=== PATIENT | male | born 1960 | race African-American/Black ===

== ENCOUNTER 2024-12-19 11:29 | Inpatient (IN) | payer MEDICARE, SELFPAY ==
[2024-12-19] VITALS (23 sets, daily range): BP systolic 128–149; BP diastolic 64–81; PULSE 38–57; RESP 12–19; TEMP 36.6–36.8; O2SAT 97–100; BMI 26.9
--- NOTE | ~2024-12-19 | XR_ITS ---
EXAMINATION: XR chest 2V, 12/19/2024 12:21 CDT HISTORY: chest pain, HIGH BP COMPARISON: No comparisons available. Technique: 2 views obtained. Findings: The lungs are clear, no effusion. No pneumothorax. Heart is normal size. Mediastinal and hilar contours are within normal limits. Bony thorax no acute abnormality. Impression: No acute cardiopulmonary abnormality. Reviewed, dictated and finalized at location P. Impression: No acute cardiopulmonary abnormality.
--- NOTE | 2024-12-19 11:30 | ECG_ITS ---
Test Date: 2024-12-19 11:35:19 Measurements Intervals [place] Rate: 41 P: 0 IN: 0 QRS: 22 QRSD: 144 T: -31 QT: 434 QTc: 362 Interpretive Statements SINUS RHYTHM CHANGES TO SLOW JUNCTIONAL ESCAPE RHYTHM RIGHT BUNDLE BRANCH BLOCK BASELINE ARTIFACT- I, II, III, AVR, AVL, AVF ABNORMAL ECG No previous ECG available for comparison Electronically Signed On 12-19-2024 15:23:31 CDT by Redd Agustin D.O.
[2024-12-19 11:55] LABS: Hematocrit 40.7 % (42.0-52.0); Hemoglobin 12.7 g/dL (14.0-18.0); Immature Granulocyte Percent A 0.2 % (0-0.5); Lymphocytes Absolute Auto 1.82 K/mm3 (0.9-3.2); Mean Corpuscular HGB Conc 31.2 g/dl (32-36); Mean Corpuscular Hemoglobin 25.9 pg (26-34); Mean Corpuscular Volume 83.1 fl (80-100); Nucleated Red Blood Cells Absolute Auto 0.000 K/mm3 (0.0-0.012); Nucleated Red Blood Cells Perc 0.0 % (0.0-0.2); Platelet Count Result 251 k/mm3 (150-375); Red Blood Count 4.90 M/mm3 (4.6-6.20); White Blood Count 5.0 K/mm3 (4.5-10.0)
[2024-12-19 12:07] LABS: INR 0.9; Prothrombin Time 12.5 Seconds (11.1-14.7)
[2024-12-19 12:08] LABS: Partial Thromboplastin Time 25.6 Seconds (22.3-36.8)
[2024-12-19 12:17] LABS: Alanine Aminotransferase 29 U/L (6-50); Albumin Level 4.5 g/dL (3.5-5.1); Alkaline Phosphatase 92 U/L (38-126); Anion Gap 6 mmol/L (4-12); Aspartate Amino Transferase 34 U/L (17-59); Bilirubin,Total 0.4 mg/dL (0.2-1.3); Blood Urea Nitrogen 13 mg/dL (9-20); Calcium 9.2 mg/dL (8.4-10.2); Carbon Dioxide 31 mmol/L (22-30); Chloride 101 mmol/L (98-107); Estimated CRCL calculation 76 ml/min; Estimated Glomerular Filt Rate > 60; Glucose 177 mg/dL (65-110); Lipase 57 U/L (23-300); Potassium 3.9 mmol/L (3.4-5.0); Sodium 138 mmol/L (137-145); Total Protein 8.2 g/dL (6.3-8.2)
[2024-12-19 12:25] LABS: Troponin I < 0.012 ng/mL (0.000-0.034)
--- NOTE | 2024-12-19 13:51 | ED_ITS ---
HPI - General Adult General Chief complaint: Chest Pain Stated complaint: chest pain Time Seen by Provider: 12/19/24 13:06 History of Present Illness HPI narrative: 64-year-old male present emergency department for evaluation for left-sided chest numbness. Patient denies any chest pain or chest pressure. 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 Patient states this sensation has been constant since yesterday. Patient felt that was a little more intense this morning. Patient denies any prior history of ACS. Patient does have history of a right bundle branch block that was 1st noticed approximately 10 years ago when he had his last stress test when he was having similar symptoms. Related Data Home Medications ?Medication ?Instructions ?Recorded ?Confirmed ?Last Taken ?Type metformin 500 mg tablet 500 mg PO BID 09/15/2412/1912/19/24 09:00 History 500 mg metoprolol succinate 100 mg 100 mg PO DAILY 09/15/2412/19/24 09:00 History tablet,extended release 24 hr 100 mg olmesartan 20 mg-amlodipine 5 1 tablet PO DAILY 12/19/24 12/19/24 09:00 History mg-hydrochlorothiazide 12.5 mg 1 tabl et tablet rosuvastatin 10 mg tablet 10 mg PO DAILY 09/15/2412/0312/19/24 09:00 History 10 mg valacyclovir 1 gram tablet 1,000 mg PO PRN PRN outbrea k 09/15/24 12/19/24 Unknown History Allergies Allergy/AdvReac Type Severity Reaction Status Date / Time No Known Allergies Allergy Unknown Verified 12/19/24 17:17 Review of Systems 2 Review of Systems: All systems reviewed & are unremarkable except as noted in HPI and below [facility] Past Medical History Medical History (Updated 12/19/24 @ 18:17 by Thomas Ladd MD) Hyperlipidemia Diabetes Family History Family History Mother Family history of malignant neoplasm Father Family history of malignant neoplasm Social History Social History Smoking status: Never smoker Alcohol intake: never Substance use: never Lack of Transportation: No Lack of Food: Never True Current Housing: I Have Housing Concerned About Future Housing: No Difficulty Paying Gas/Electric Bills: No Difficulty Paying for Meds: No Currently Unemployed: No Education: Decline to Answer Difficulty w/ Childcare or Family Care: No Spiritual care concerns: No Exam 2 Narrative: APPEARANCE: Well appearing, no pain, no distress, well-nourished. HEAD: normocephalic, atraumatic. EYES: PERRLA/EOMI, conjunctivae clear. NOSE: Normal no drainage EARS:TMS clear with good light reflex. THROAT: Pharynx clear, no exudate. NECK: Supple. No adenopathy, no masses. RESPIRATORY: Airway patent, respirations nonlabored. Clear to auscultation bilaterally, no rales, rhonchi, wheezing. CARDIOVASCULAR: Bradycardia ABDOMINAL: Soft, nontender, nondistended, normal bowel sounds MUSCULOSKELETAL: Reproducible left-sided chest wall tenderness to palpation NEURO: Alert. Cranial nerves II through XII intact. Good gait. Good coordination SKIN: Warm, dry. Normal Color Course Vital Signs Vital signs: Vital Signs Temperature 98 F 12/19/24 11:40 Pulse Rate 45 L 12/19/24 11:40 Respiratory Rate 17 12/19/24 11:40 Blood Pressure 149/75 H 12/19/24 11:40 Pulse Oximetry 99 12/19/24 11:40 Oxygen Delivery Room Air 12/19/24 11:40 Temperature 98 F 12/19/24 11:40 Pulse Rate 38 L 12/19/24 16:15 Respiratory Rate 14 12/19/24 16:15 Blood Pressure 140/80 12/19/24 15:47 Pulse Oximetry 97 12/19/24 17:36 Oxygen Delivery Room Air 12/19/24 17:36 Medical Decision Making [facility] Narrative Medical decision making narrative: 64-year-old male presents emergency department for evaluation for some left- sided chest numbness. Patient does have reproducible left-sided chest tenderness to palpation. Patient's troponins were negative. Patient is currently afebrile with no leukocytosis and hemoglobin of 12.7. D-dimer was high end of normal at 0.39. INR is 0.9. Patient is on metoprolol for his hypertension. This may be causing the significant bradycardia. Cardiology was consulted. Patient was admitted to IMU. All questions concerns were addressed. Patient was well-appearing at time of admission. Differential Diagnosis Differential Diagnosis: AFib with slow ventricular response, bradycardia, dehydration, hypomagnesemia, ACS, pneumonia, pneumothorax Vital Signs Vital Signs: Vital Signs Temperature 98 F 12/19/24 11:40 Pulse Rate 45 L 12/19/24 11:40 Respiratory Rate 17 12/19/24 11:40 Blood Pressure 149/75 H 12/19/24 11:40 Pulse Oximetry 99 12/19/24 11:40 Oxygen Delivery Room Air 12/19/24 11:40 Temperature 98 F 12/19/24 11:40 Pulse Rate 38 L 12/19/24 16:15 Respiratory Rate 14 12/19/24 16:15 Blood Pressure 140/80 12/19/24 15:47 Pulse Oximetry 97 12/19/24 17:36 Oxygen Delivery Room Air 12/19/24 17:36 Lab Data Lab results reviewed: Yes I reviewed the patient's lab results. 12/19/24 11:46 12/19/24 11:46 Labs: Lab Results 12/19/24 12/19/24 Range/Units 11:46 14:24 WBC 5.0 (4.5-10.0) K/mm3 RBC 4.90 (4.6-6.20) M/mm3 Hgb 12.7 L (14.0-18.0) g/dL Hct 40.7 L (42.0-52.0) % MCV 83.1 (80-100) fl MCH 25.9 L (26-34) pg MCHC 31.2 L (32-36) g/dl RDW 14.6 H (11.5-14.5) % Plt Count 251 (150-375) k/mm3 MPV 10.5 H (7.4-10.4) fl Immature Gran % (Auto) 0.2 (0-0.5) % Neut % (Auto) 47.1 (45.5-73.1) % Lymph % (Auto) 36.3 (18.3-44.2) % Kay % (Auto) 7.2 (2.6-8.5) % Eos % (Auto) 8.4 H (0-4.4) % Baso % (Auto) 0.8 (0.2-1.2) % Lymph # (Auto) 1.82 (0.9-3.2) K/mm3 Kay # (Auto) 0.4 (0.1-0.6) K/mm3 Eos # (Auto) 0.4 H (0-0.3) K/mm3 Baso # (Auto) 0.0 (0.0-0.1) K/mm3 Abs Immat Gran (auto) 0.01 (0.00-0.031) K/mm3 Absolute Neuts (auto) 2.4 (1.3-6.7) K/mm3 Absolute Nucleated RBC 0.000 (0.0-0.012) K/mm3 Nucleated RBC % 0.0 (0.0-0.2) % PT 12.5 (11.1-14.7) Seconds INR 0.9 APTT 25.6 (22.3-36.8) Seconds D-Dimer 0.39 (<0.48) ug/mL Sodium 138 (137-145) mmol/L Potassium 3.9 (3.4-5.0) mmol/L Chloride 101 (98-107) mmol/L Carbon Dioxide 31 H (22-30) mmol/L Anion Gap 6 (4-12) mmol/L BUN 13 (9-20) mg/dL Creatinine 0.93 (0.7-1.3) mg/dL Estim Creat Clear Calc 76 ml/min Estimated GFR > 60 (59 - ) Glucose 177 H (65-110) mg/dL Calcium 9.2 (8.4-10.2) mg/dL Total Bilirubin 0.4 (0.2-1.3) mg/dL AST 34 (17-59) U/L ALT 29 (6-50) U/L Alkaline Phosphatase 92 (38-126) U/L Troponin I < 0.012 < 0.012 (0.000-0.034) ng/mL Total Protein 8.2 (6.3-8.2) g/dL Albumin 4.5 (3.5-5.1) g/dL Lipase 57 (23-300) U/L Discharge Plan Discharge Clinical Impression: Bradycardia, Chest discomfort Patient Disposition: Still a Patient Condition: Serious
--- OUTSIDE RECORDS SUMMARY | 2024-12-19 13:52 | XMS_ITS | Encounter Summary ---
Author Organization [facility] Address 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 [place] [address] PCP - General 12/19/06 documented as of this encounter
--- OUTSIDE RECORDS SUMMARY | 2024-12-19 13:52 | XMS_ITS | Encounter Summary ---
Author Organization [facility] Address [address] [place] [address] Care Team Providers Care Change Control Analyst Name Role Phone Joseph June MD Primary Care Provider [phone] Encounter Details Date Type Department Care Team (Late st Contact Info) Description 05/13/2003 Outpatient Historical [facility] Care [facility] [address] [address] Jason Muhammad, DO * Social History Tobacco Use Types Packs/Day Years Used Date Smoking Tobacco: Never Assessed Sex and Gender Information Value Date Recorded Sex Assigned at Not on file Legal Sex Male 4:31 AM OUTREACH COUNSELOR Gender Identity Not on file Sexual Orientation Not on file documented as of this encounter Plan of Treatment Upcoming Encounters Date Type Department Care Team (Late st Contact Info) Description 04/03/2025 9:15 AM OUTREACH COUNSELOR Office Visit [facility] [address] [address] Joseph June MD [address] [place] [address] documented as of this encounter Visit Diagnoses Not on filedocumented in this encounter Care Teams Change Control Analyst Relationship Specialty Start Date End Date Joseph June MD [address] [place] [address] PCP - General 12/19/06 documented as of this encounter
--- OUTSIDE RECORDS SUMMARY | 2024-12-19 13:52 | XMS_ITS | Encounter Summary ---
Author Organization [facility] Address 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 [place] [address] PCP - General 12/19/06 documented as of this encounter
--- OUTSIDE RECORDS SUMMARY | 2024-12-19 13:52 | XMS_ITS | Encounter Summary ---
Author Organization [facility] Address [address] [place] [address] Care Team Providers Care Racecar Driver Name Role Phone Joseph June MD Primary Care Provider [phone] Encounter Details Date Type Department Care Team (Late st Contact Info) Description 04/29/2001 Outpatient Historical [facility] Care [facility] [address] [address] Jason Muhammad, DO * Social History Tobacco Use Types Packs/Day Years Used Date Smoking Tobacco: Never Assessed Sex and Gender Information Value Date Recorded Sex Assigned at Not on file Legal Sex Male 4:31 AM LOT BOSS Gender Identity Not on file Sexual Orientation Not on file documented as of this encounter Plan of Treatment Upcoming Encounters Date Type Department Care Team (Late st Contact Info) Description 04/03/2025 9:15 AM LOT BOSS Office Visit [facility] [address] [address] Joseph June MD [address] [place] [address] documented as of this encounter Visit Diagnoses Not on filedocumented in this encounter Care Teams Racecar Driver Relationship Specialty Start Date End Date Joseph June MD [address] [place] [address] PCP - General 12/19/06 documented as of this encounter
--- OUTSIDE RECORDS SUMMARY | 2024-12-19 13:52 | XMS_ITS | Encounter Summary ---
Author Organization [facility] Address [address] [place] [address] Care Team Providers Care Senior Analyst Market Intelligence Name Role Phone Joseph June MD Primary Care Provider [phone] Encounter Details Date Type Department Care Team (Late st Contact Info) Description 09/30/1997 Outpatient Historical [facility] Care [facility] [address] [address] Jason Muhammad, DO * Social History Tobacco Use Types Packs/Day Years Used Date Smoking Tobacco: Never Assessed Sex and Gender Information Value Date Recorded Sex Assigned at Not on file Legal Sex Male 4:31 AM SHIP HARBOR PILOT Gender Identity Not on file Sexual Orientation Not on file documented as of this encounter Plan of Treatment Upcoming Encounters Date Type Department Care Team (Late st Contact Info) Description 04/03/2025 9:15 AM SHIP HARBOR PILOT Office Visit [facility] [address] [address] Joseph June MD [address] [place] [address] documented as of this encounter Visit Diagnoses Not on filedocumented in this encounter Care Teams Senior Analyst Market Intelligence Relationship Specialty Start Date End Date Joseph June MD [address] [place] [address] PCP - General 12/19/06 documented as of this encounter
--- OUTSIDE RECORDS SUMMARY | 2024-12-19 13:52 | XMS_ITS | Encounter Summary ---
Author Organization [facility] Address [address] [place] [address] Care Team Providers Care Pharmacology Professor Name Role Phone Joseph June MD Primary Care Provider [phone] Encounter Details Date Type Department Care Team (Late st Contact Info) Description 08/20/2001 Outpatient Historical [facility] [address] [address] Jason Muhammad, DO * Social History Tobacco Use Types Packs/Day Years Used Date Smoking Tobacco: Never Assessed Sex and Gender Information Value Date Recorded Sex Assigned at Not on file Legal Sex Male 4:31 AM CONCRETE MIXER OPERATOR HELPER Gender Identity Not on file Sexual Orientation Not on file documented as of this encounter Plan of Treatment Upcoming Encounters Date Type Department Care Team (Late st Contact Info) Description 04/03/2025 9:15 AM CONCRETE MIXER OPERATOR HELPER Office Visit [facility] [address] [phone] Joseph June MD [address] [place] [address] documented as of this encounter Visit Diagnoses Not on filedocumented in this encounter Care Teams Pharmacology Professor Relationship Specialty Start Date End Date Joseph June MD [address] [place] [address] PCP - General 12/19/06 documented as of this encounter
--- OUTSIDE RECORDS SUMMARY | 2024-12-19 13:52 | XMS_ITS | Encounter Summary ---
Author Organization [facility] Address [address] [place] [address] Care Team Providers Care Industrial Technology Teacher Name Role Phone Joseph June MD Primary Care Provider [phone] Encounter Details Date Type Department Care Team (Late st Contact Info) Description 08/06/2001 Outpatient Historical [facility] Care [facility] [address] [address] Jason Muhammad, DO * Social History Tobacco Use Types Packs/Day Years Used Date Smoking Tobacco: Never Assessed Sex and Gender Information Value Date Recorded Sex Assigned at Not on file Legal Sex Male 4:31 AM SERVICE PERSON Gender Identity Not on file Sexual Orientation Not on file documented as of this encounter Plan of Treatment Upcoming Encounters Date Type Department Care Team (Late st Contact Info) Description 04/03/2025 9:15 AM SERVICE PERSON Office Visit [facility] [address] [phone] Joseph June MD [address] [place] [address] documented as of this encounter Visit Diagnoses Not on filedocumented in this encounter Care Teams Industrial Technology Teacher Relationship Specialty Start Date End Date Joseph June MD [address] [place] [address] PCP - General 12/19/06 documented as of this encounter
--- OUTSIDE RECORDS SUMMARY | 2024-12-19 13:52 | XMS_ITS | Encounter Summary ---
Author Organization [facility] Address [address] [place] [address] Care Team Providers Care Personal Computer Network Engineer Name Role Phone Joseph June MD Primary Care Provider [phone] Reason for Visit * Reason Comments Medication Refill Encounter Details Date Type Department Care Team (Late Contact Info) Description 02/12/2015 Refill [facility] [place] [address] Joseph June MD [facility] [address] [place] [address] Social History Tobacco Use Types Packs/Day Years Used Date Smoking Tobacco: Never Smokeless Tobacco: Never Alcohol Use Standard Drinks/Week Comments No 0 (1 standard drink = 0.6 oz pur e alcohol) Sex and Gender Information Value Date Recorded Sex Assigned at Not on file Legal Sex Male 4:31 AM MILL MACHINIST Gender Identity Not on file Sexual Orientation Not on file Occupation Industry Job Start Date Job End Date Not on file Not on file Not on file Not on file documented as of this encounter Plan of Treatment Upcoming Encounters Date Type Department Care Team (Late Contact Info) Description 04/03/2025 9:15 AM MILL MACHINIST Office Visit [facility] [address] [address] Joseph June MD [address] [place] [address] documented as of this encounter Visit Diagnoses Not on filedocumented in this encounter Care Teams Personal Computer Network Engineer Relationship Specialty Start Date End Date Joseph June MD [address] [facility] [address] [place] [phone] PCP - General 12/19/06 documented as of this encounter
--- OUTSIDE RECORDS SUMMARY | 2024-12-19 13:52 | XMS_ITS | Encounter Summary ---
Author Organization [facility] Address [address] [place] [address] Care Team Providers Care Paper Cone Machine Tender Name Role Phone Joseph June MD Primary Care Provider [phone] Encounter Details Date Type Department Care Team (Late st Contact Info) Description 05/13/2001 Outpatient Historical [facility] Care [facility] [address] [address] Jason Muhammad, DO * Social History Tobacco Use Types Packs/Day Years Used Date Smoking Tobacco: Never Assessed Sex and Gender Information Value Date Recorded Sex Assigned at Not on file Legal Sex Male 4:31 AM RELIABILITY TECHNICIAN Gender Identity Not on file Sexual Orientation Not on file documented as of this encounter Plan of Treatment Upcoming Encounters Date Type Department Care Team (Late st Contact Info) Description 04/03/2025 9:15 AM RELIABILITY TECHNICIAN Office Visit [facility] [address] [phone] Joseph June MD [address] [place] [address] documented as of this encounter Visit Diagnoses Not on filedocumented in this encounter Care Teams Paper Cone Machine Tender Relationship Specialty Start Date End Date Joseph June MD [address] [place] [address] PCP - General 12/19/06 documented as of this encounter
--- OUTSIDE RECORDS SUMMARY | 2024-12-19 13:52 | XMS_ITS | Clinical Summary ---
Author Organization [facility] Address [address] [place] [address] Care Team Providers Care Pan Devulcanizer Helper Name Role Phone Joseph June MD Primary Care Provider [phone] Source Comments [facility],non-owned Affiliates and Associated Physician Practices is amultiple site organization consisting of ambulatory clinics and hospital sitesin [place], [place], [place] and [place]. This disclosure is being madepursuant to the Care Everywhere program and may not contain all information available regarding this patient. Last updated 17.[facility] Allergies No known active allergies Medications * Be aware that medications may not be up to date on this document. Alwaysverify current medications with the patient. LOSARTAN POTASSIUM PO Active LISINOPRIL PO Active Social History Tobacco Use Types Packs/Day Years Used Date Smoking Tobacco: Never Sex and Gender Information Value Date Recorded Sex Assigned at Not on file Legal Sex Male 6:02 AM IT TECHNICAL SUPPORT SPECIALIST Gender Identity Not on file Sexual Orientation Not on file Last Filed Vital Signs Vital Sign Reading Time Taken Comments Blood Pressure 142/88 03/28/2016 3:02 PM IT TECHNICAL SUPPORT SPECIALIST Pulse 86 03/28/2016 2:42 PM IT TECHNICAL SUPPORT SPECIALIST Temperature 39.4 C (102.9 F) 03/28/2016 2:42 PM IT TECHNICAL SUPPORT SPECIALIST Respiratory Rate 16 03/28/2016 2:42 PM IT TECHNICAL SUPPORT SPECIALIST Oxygen Saturation 94% 03/28/2016 2:42 PM IT TECHNICAL SUPPORT SPECIALIST Inhaled Oxygen Concentration - - Weight 97.5 kg (215 lb) 03/28/2016 2:42 PM IT TECHNICAL SUPPORT SPECIALIST Height 182.9 cm (6') 03/28/2016 2:42 PM IT TECHNICAL SUPPORT SPECIALIST Body Mass Index 29.16 03/28/2016 2:42 PM IT TECHNICAL SUPPORT SPECIALIST Plan of Treatment Health Maintenance Due Date Last Done Comments COLOGUARD (AGES 45-75) - COL ON CA SCREENING 1959 COLON MONITORING 1959 COLONOSCOPY - COLON CA SCREENING 1959 CT COLONOGRAPHY - COLON CA SCREENING 1959 Colorectal Cancer Screening 1959 FIT - COLON CA SCREENING 1959 FLEX SIG - COLON CA SCREENING 1959 LIPID TESTING 1959 HIV SCREENING 1974 HEPATITIS C SCREENING 01/20/1977 DTAP/TDAP/TD VACCINES (1 - Tdap) 1978 PNEUMOCOCCAL VACCINE 50+ (1 of 1 - PCV) 2009 ZOSTER VACCINE (1 of 2) 2009 DEPRESSION SCREENING 03/05/2024 COVID-19 VACCINE (1 - 2023-2 5 season) 2024 INFLUENZA VACCINE (#1) 2024 Respiratory Syncytial Virus (RSV) Vaccine Pt: or over 60 yrs (1 - 1-dose 75+ series) 2034 HEPATITIS B VACCINE Aged Out No longe r eligible based on patient's age to complete this topic HIB VACCINE Aged Out No longer eligi ble based on patient's age to complete this topic HPV VACCINE Aged Out No longer eligi ble based on patient's age to complete this topic MENINGOCOCCAL (Group B) VACC INE SHARED DECISION-MAKING Aged Out No longer eligibl e based on patient's age to complete this topic MENINGOCOCCAL GROUPS A/C/Y/W VACCINE Aged Out No longer eligible b ased on patient's age to complete this topic Insurance [employer] [facility] Care Teams Pan Devulcanizer Helper Relationship Specialty Start Date End Date Joseph June MD [address] [place] [address] PCP - General Family Medicine 03/28/16
--- OUTSIDE RECORDS SUMMARY | 2024-12-19 13:52 | XMS_ITS | Encounter Summary ---
Author Organization [facility] Address [address] [place] [address] Care Team Providers Care Jointer Submarine Cable Name Role Phone Joseph June MD Primary Care Provider [phone] Encounter Details Date Type Department Care Team (Late st Contact Info) Description 04/15/2001 Outpatient Historical [facility] Care [facility] [address] [address] Jason Muhammad, DO * Social History Tobacco Use Types Packs/Day Years Used Date Smoking Tobacco: Never Assessed Sex and Gender Information Value Date Recorded Sex Assigned at Not on file Legal Sex Male 4:31 AM EXPLOSIVE OPERATOR SUPERVISOR Gender Identity Not on file Sexual Orientation Not on file documented as of this encounter Plan of Treatment Upcoming Encounters Date Type Department Care Team (Late st Contact Info) Description 04/03/2025 9:15 AM EXPLOSIVE OPERATOR SUPERVISOR Office Visit [facility] [address] [phone] Jospeh June MD [address] [place] [address] documented as of this encounter Visit Diagnoses Not on filedocumented in this encounter Care Teams Jointer Submarine Cable Relationship Specialty Start Date End Date Joseph June MD [address] [place] [address] PCP - General 12/19/06 documented as of this encounter
--- OUTSIDE RECORDS SUMMARY | 2024-12-19 13:53 | XMS_ITS | Encounter Summary ---
Author Organization [facility] Address [address] [place] [address] Care Team Providers Care Prototype Engineer Manager Name Role Phone Joseph June MD Primary Care Provider [phone] Encounter Details Date Type Department Care Team (Late st Contact Info) Description 11/13/2001 Outpatient Historical [facility] Care [facility] [address] [address] Jason Muhammad, DO * Social History Tobacco Use Types Packs/Day Years Used Date Smoking Tobacco: Never Assessed Sex and Gender Information Value Date Recorded Sex Assigned at Not on file Legal Sex Male 4:31 AM FARM SERVICE ADVISER Gender Identity Not on file Sexual Orientation Not on file documented as of this encounter Plan of Treatment Upcoming Encounters Date Type Department Care Team (Late st Contact Info) Description 04/03/2025 9:15 AM FARM SERVICE ADVISER Office Visit [facility] [address] [address] Joseph June MD [address] [place] [address] documented as of this encounter Visit Diagnoses Not on filedocumented in this encounter Care Teams Prototype Engineer Manager Relationship Specialty Start Date End Date Joseph June MD [address] [place] [address] PCP - General 12/19/06 documented as of this encounter
--- OUTSIDE RECORDS SUMMARY | 2024-12-19 13:53 | XMS_ITS | Encounter Summary ---
Author Organization [facility] Address [address] [place] [address] Care Team Providers Care Fleet Mechanic Name Role Phone Joseph June MD Primary Care Provider [phone] Encounter Details Date Type Department Care Team (Late st Contact Info) Description 12/19/2006 Outpatient Historical [facility] Joseph June MD [address] [place] [phone] Unspecified Anemia (Primary Dx) Social History Tobacco Use Types Packs/Day Years Used Date Smoking Tobacco: Never Assessed Sex and Gender Information Value Date Recorded Sex Assigned at Not on file Legal Sex Male 4:31 AM ASSISTANT Gender Identity Not on file Sexual Orientation Not on file documented as of this encounter Plan of Treatment Upcoming Encounters Date Type Department Care Team (Late Contact Info) Description 04/03/2025 9:15 AM ASSISTANT Office Visit [facility] Primary [facility] - [place] [address] [place] [phone] Joseph June MD [address] [place], [place] [address] [place] [phone] documented as of this encounter Procedures Procedure Name Priority Date/Time Associated Diagnosis Comments CBC WITH DIFFERENTIAL Routine 12/19/2006 12:27 PM CDT CBC WITH DIFFERENTIAL Routine 12/19/2006 12:27 PM CDT PSA Routine 12/19/2006 12:27 PM CDT HEPATIC FUNCTION PANEL Routine 12/19/2006 12:27 PM CDT LIPID PANEL Routine 12/19/2006 12:27 PM CDT BASIC METABOLIC PANEL Routine 12/19/2006 12:27 PM CDT documented in this encounter Results * CBC WITH DIFFERENTIAL (12/19/2006 12:27 PM CDT) NEUTROPHILS 53 45 - 70 % INTERFAC E SYSTEM LYMPHOCYTES 35 16 - 45 % INTERFAC E SYSTEM MONOCYTES 6 3 - 13 % INTERFACE SYSTEM EOSINOPHILS 7 0 - 7 % INTERFAC E SYSTEM BASOPHILS 1 0 - 2 % INTERFACE SYSTEM NEUTROPHIL ABSOLUTE 3.09 1.90 - 7.00 K/uL INTERFACE SYSTEM LYMPHOCYTE ABSOLUTE 2.04 0.70 - 4.50 K/uL INTERFACE SYSTEM MONOCYTE ABSOLUTE 0.34 0.10 - 1.30 K/uL INTERFACE SYSTEM EOSINOPHIL ABSOLUTE 0.39 0.00 - 0.70 K/uL INTERFACE SYSTEM BASOPHILS ABSOLUTE 0.03 0.00 - 0.20 K/uL INTERFACE SYSTEM 12/19/2006 12:2 7 PM CDT us Joseph June MD HEMATOLOGY ORDERABLES Edited INTERFACE SYSTEM Refer to clinic/hospital department * (ABNORMAL) CBC WITH DIFFERENTIAL (12/19/2006 12:27 PM CDT) WBC 5.9 4.0 - 9.8 K/uL INTERFACE SYSTEM RBC 4.77 4.50 - 5.40 M/uL INTERFACE SYSTEM HEMOGLOBIN 12.0(L) 13.6 - 16.5 g/dL INTERFACE SYSTEM HEMATOCRIT 37.0(L) 40.0 - 48.0 % INTERFACE SYSTEM MCV 77.6(L) 82.0 - 99.0 fL INTERFACE SYSTEM MCH 25.2(L) 27.2 - 32.6 pg INTERFACE SYSTEM MCHC 32.4 31.5 - 35.5 % INTERFACE SYSTEM RDW 14.6(H) 11.5 - 14.5 % INTERFACE SYSTEM RDW-STDEV 41.1 37.1 - 48.7 fL INTERFACE SYSTEM PLATELETS 289 140 - 350 K/uL INTERFACE SYSTEM MPV 10.4 9.3 - 12.4 fL INTERFACE SYSTEM 12/19/2006 12:2 7 PM CDT Joseph June MD HEMATOLOGY ORDERABLES Edited INTERFACE SYSTEM Refer to clinic/hospital department * PSA (12/19/2006 12:27 PM CDT) PSA 0.8 0.0 - 4.0 ng/mL INTERFACE SYSTEM Comment:Performed on [employer] E170 System 12/19/2006 12:2 7 PM CDT Joseph June MD CHEMISTRY ORDERABLES Edited INTERFACE SYSTEM Refer to clinic/hospital department * HEPATIC FUNCTION PANEL (12/19/2006 12:27 PM CDT) ALKALINE PHOSPHATASE 77 40 - 129 U/L INTERFACE SYSTEM AST 31 12 - 38 U/L INTERFACE SYSTEM ALT 41 0 - 41 U/L INTERFACE SYSTEM TOTAL PROTEIN 7.9 6.3 - 8.6 g/dL INTERFACE SYSTEM ALBUMIN 4.4 3.4 - 4.8 g/dL INTERFACE SYSTEM BILIRUBIN TOTAL 0.3 0.2 - 1.0 mg/dL INTERFACE SYSTEM BILIRUBIN DIRECT 0.1 0.0 - 0.3 mg/dL INTERFACE SYSTEM 12/19/2006 12:2 7 PM CDT Joseph June MD CHEMISTRY ORDERABLES Edited INTERFACE SYSTEM Refer to clinic/hospital department * LIPID PANEL (12/19/2006 12:27 PM CDT) CHOLESTEROL 172 100 - 199 mg/dL INTERFACE SYSTEM TRIGLYCERIDE 93 10 - 149 mg/dL INTERFACE SYSTEM HDL 59 40 - 59 mg/dL INTERFACE SYSTEM CHOL/HDL RATIO 2.9 2.0 - 5.0 INTER FACE SYSTEM LDL CALCULATED 94 <=99 mg/dL INTERFACE SYSTEM LIPID PANEL COMMENT See Below INTERFACE SYSTEM Comment: The adult ATP and pediatric NCEP classifications for lipids are available on the [facility] Intranet at: [email or web address] Select: Lab Policies and Procedures,Current Select: Lipid Panel Interpretation 12/19/2006 12:2 7 PM CDT Joseph June MD CHEMISTRY ORDERABLES Edited Performing Organization Address City/[facility]/ZIP Co de Phone Number INTERFACE SYSTEM Refer to clinic/hospital department * BASIC METABOLIC PANEL (12/19/2006 12:27 PM CDT) GLUCOSE 99 65 - 99 mg/dL INTERFACE SYSTEM CREATININE 1.02 0.67 - 1.17 mg/dL INTERFACE SYSTEM CALCIUM 9.5 8.4 - 10.2 mg/dL INTERFACE SYSTEM BUN 14 6 - 20 mg/dL INTERFACE SYSTEM SODIUM 140 135 - 145 mmol/L INTERFACE SYSTEM POTASSIUM 3.8 3.5 - 4.9 mmol/L INTERFACE SYSTEM CHLORIDE 101 96 - 108 mmol/L INTERFACE SYSTEM CO2 29 22 - 30 mmol/L INTERFACE SYSTEM GFR, >60 >=60 mL/min/1.7 sq meter INTERFACE SYSTEM GFR >60 >=60 mL/min/1.7 sq meter INTERFACE SYSTEM Comment: Estimated GFR rate interpretative information for both Americans and non- Americans is available on the [facility] Intranet at: [email or web address] Select: Lab Policies and Procedures Select: Reference Ranges - GFR 12/19/2006 12:2 7 PM CDT Joseph June MD CHEMISTRY ORDERABLES Edited INTERFACE SYSTEM Refer to clinic/hospital department documented in this encounter Visit Diagnoses Diagnosis Anemia, unspecified- Primary documented in this encounter Care Teams Fleet Mechanic Relationship Specialty Start Date End Date Joseph June MD [address] [place] [phone] PCP - General 12/19/06 documented as of this encounter
--- OUTSIDE RECORDS SUMMARY | 2024-12-19 13:53 | XMS_ITS | Encounter Summary ---
Author Organization [facility] Address [address] [place] [address] Care Team Providers Care Microfilm Camera Operator Name Role Phone Josehp June MD Primary Care Provider [phone] Encounter Details Date Type Department Care Team (Late st Contact Info) Description 09/04/2002 Outpatient Historical [facility] Care [facility] [address] [address] Jason Muhammad, DO * Social History Tobacco Use Types Packs/Day Years Used Date Smoking Tobacco: Never Assessed Sex and Gender Information Value Date Recorded Sex Assigned at Not on file Legal Sex Male 4:31 AM PANEL ASSEMBLER Gender Identity Not on file Sexual Orientation Not on file documented as of this encounter Plan of Treatment Upcoming Encounters Date Type Department Care Team (Late st Contact Info) Description 04/03/2025 9:15 AM PANEL ASSEMBLER Office Visit [facility] [address] [address] Joseph June MD [address] [place] [address] documented as of this encounter Visit Diagnoses Not on filedocumented in this encounter Care Teams Microfilm Camera Operator Relationship Specialty Start Date End Date Joseph June MD [address] [place] [address] PCP - General 12/19/06 documented as of this encounter
--- OUTSIDE RECORDS SUMMARY | 2024-12-19 13:53 | XMS_ITS | Encounter Summary ---
Author Organization [facility] Address [address] [place] [address] Care Team Providers Care Sewing Machine Assembler Name Role Phone Joseph June MD Primary Care Provider [phone] Encounter Details Date Type Department Care Team (Late st Contact Info) Description 12/19/2006 Outpatient Historical [facility] Care [facility] [address] [place] [phone] Kia Woo MD NO ADDRESS ON FILE Social History Tobacco Use Types Packs/Day Years Used Date Smoking Tobacco: Never Assessed Sex and Gender Information Value Date Recorded Sex Assigned at Not on file Legal Sex Male 4:31 AM SKILLED NURSING FACILITIES PROFESSIONAL Gender Identity Not on file Sexual Orientation Not on file documented as of this encounter Plan of Treatment Upcoming Encounters Date Type Department Care Team (Late st Contact Info) Description 04/03/2025 9:15 AM SKILLED NURSING FACILITIES PROFESSIONAL Office Visit [facility] [address] [place] [address] Joseph June MD [address] [place] [address] documented as of this encounter Visit Diagnoses Not on filedocumented in this encounter Care Teams Sewing Machine Assembler Relationship Specialty Start Date End Date Joseph June MD [address] [place] [address] PCP - General 12/19/06 documented as of this encounter
--- OUTSIDE RECORDS SUMMARY | 2024-12-19 13:53 | XMS_ITS | Encounter Summary ---
Author Organization [facility] Address [address] [place] [address] Care Team Providers Care Industrial Engineering Name Role Phone Joseph June MD Primary Care Provider [phone] Encounter Details Date Type Department Care Team (Late st Contact Info) Description 06/17/2004 Outpatient Historical [facility] Care [facility] [address] [address] Jason Muhammad, DO * Social History Tobacco Use Types Packs/Day Years Used Date Smoking Tobacco: Never Assessed Sex and Gender Information Value Date Recorded Sex Assigned at Not on file Legal Sex Male 4:31 AM SELF PAY COLLECTOR Gender Identity Not on file Sexual Orientation Not on file documented as of this encounter Plan of Treatment Upcoming Encounters Date Type Department Care Team (Late st Contact Info) Description 04/03/2025 9:15 AM SELF PAY COLLECTOR Office Visit [facility] [address] [address] Joseph June MD [address] [place] [address] documented as of this encounter Visit Diagnoses Not on filedocumented in this encounter Care Teams Industrial Engineering Relationship Specialty Start Date End Date Joseph June MD [address] [place] [address] PCP - General 12/19/06 documented as of this encounter
--- OUTSIDE RECORDS SUMMARY | 2024-12-19 13:53 | XMS_ITS | Encounter Summary ---
Author Organization [facility] Address [address] [place] [address] Care Team Providers Care Email Deployment Specialist Name Role Phone Joseph June MD Primary Care Provider [phone] Encounter Details Date Type Department Care Team (Late st Contact Info) Description 11/25/[address] [facility] Care [facility] [address] [address] Jason Muhammad, DO * Social History Tobacco Use Types Packs/Day Years Used Date Smoking Tobacco: Never Assessed Sex and Gender Information Value Date Recorded Sex Assigned at Not on file Legal Sex Male 4:31 AM ASSOCIATE FINANCIAL ADVISOR Gender Identity Not on file Sexual Orientation Not on file documented as of this encounter Plan of Treatment Upcoming Encounters Date Type Department Care Team (Late st Contact Info) Description 04/03/2025 9:15 AM ASSOCIATE FINANCIAL ADVISOR Office Visit [facility] [address] [address] Joseph June MD [address] [place] [address] documented as of this encounter Visit Diagnoses Not on filedocumented in this encounter Care Teams Email Deployment Specialist Relationship Specialty Start Date End Date Joseph June MD [address] [place] [address] PCP - General 12/19/06 documented as of this encounter
--- OUTSIDE RECORDS SUMMARY | 2024-12-19 13:53 | XMS_ITS | Clinical Summary ---
Author Organization [facility] Address [address] [place] [address] Care Team Providers Care Edge Drummer Name Role Phone Joseph June MD Primary Care Provider [phone] Allergies No known active allergies Medications olmesartan-amLO DIPin-hcthiazid 20-5-12.5 mg tabletIndicatio ns:hypertension Take by mouth every morning Active rosuvastatin (CRESTOR) 10 mg tabletIndicatio ns:hyperlipidem ia Take 10 mg by mouth daily before breakfast Active metoprolol XL (TOPROL-XL) 100 mg 24 hr tabletIndicatio ns:hypertension Take 100 mg by mouth every morning Active levoFLOXacin (LEVAQUIN) 500 mg tabletIndicatio ns:Other (complete free text reason below) Take 1 tablet by mouth at 6 AM morning of surgery and take 1 tablet by mouth day of catheter removal 2 tablet 0 Active ASCORBIC ACID, VITAMIN C, ORAL Take by mouth every morning Active potassium chloride ER (KLOR-CON) 20 mEq CR tablet as needed 9 Active valACYclovir (VALTREX) 1 gram tablet TAKE 1 TABLET DAILY (NEED TO SCHEDULE APPOINTMENT). 7 Active iron 18 mg tablet Take by mouth every morning Active ibuprofen (ADVIL,MOTRIN) 200 mg tab/cap Take by mouth every 6 (six) hours as needed for pain Active naproxen (ALEVE) 220 mg tablet Take by mouth 2 (two) times a day with meals Active famotidine (PEPCID) 40 mg tablet Take 40 mg by mouth daily Active docusate sodium (COLACE) 100 mg capsuleIndicati ons:constipatio n Take 1 capsule (100 mg total) by mouth 2 (two) times a day as needed for constipation 10 capsule 0 Active oxyCODONE (ROXICODONE) 5 mg immediate release tabletIndicatio ns:Pain Take 1 tablet (5 mg total) by mouth every 6 (six) hours as needed for pain 10 tablet 0 Active oxybutynin (DITROPAN) 5 mg tablet Take 1 tablet (5 mg total) by mouth 3 (three) times a day as needed (bladder spasms) 30 tablet 0 Active tadalafiL (CIALIS) 5 mg tabletIndicatio ns:Prostate cancer (HCC) Take 1 tablet (5 mg total) by mouth daily 30 tablet 3 0 Active sildenafiL (VIAGRA) 100 mg tabletIndicatio ns:Erectile Dysfunction Take 1 tablet (100 mg total) by mouth daily as needed for erectile dysfunction 20 tablet 11 3 Active Active Problems Problem Noted Date Diagnosed Date Prostate cancer 04/03/2019 Overview (04/03/2019): Added automatically from request for surgery [id number] Surgical History Surgery Date Site/Laterality Comments ANKLE SURGERY 03/05/2018 - 03/04/2019 KNEE SURGERY 03/05/2014 - 03/04/2015 VASECTOMY 03/05/1989 - 03/04/1990 TONSILLECTOMY 03/05/1978 - 03/04/1979 Medical History Medical History Date Comments Hypertension High cholesterol Prostate cancer (HCC) Family History Medical History Relation Name Comments Stroke Father Cancer Mother Anesthesia problems Neg Hx Relation Name Status Comments Father Mother Social History Tobacco Use Types Packs/Day Years Used Date Smoking Tobacco: Never Smokeless Tobacco: Never Tobacco Cessation:Counseling Given: Not Answered Alcohol Use Standard Drinks/Week Comments Yes 3 (1 standard drink = 0.6 oz pur e alcohol) Sex and Gender Information Value Date Recorded Sex Assigned at Not on file Legal Sex Male 3:00 PM CROSS COUNTRY/TRACK AND FIELD COACH Gender Identity Male 11/16/2020 8:41 AM CDT Sexual Orientation Straight 11/16/2020 8: 41 AM CDT Obstetrics History Last Filed Vital Signs Vital Sign Reading Time Taken Comments Blood Pressure 134/87 05/15/2019 12:17 PM CDT Pulse 67 05/15/2019 12:17 PM CDT Temperature 36.7 C (98 F) 11/29/2021 8:34 AM CDT Respiratory Rate 16 05/02/2019 8:01 AM CROSS COUNTRY/TRACK AND FIELD COACH Oxygen Saturation 95% 05/02/2019 8:05 AM CROSS COUNTRY/TRACK AND FIELD COACH Inhaled Oxygen Concentration - - Weight 93.8 kg (206 lb 12.7 oz) 04/14/2019 1:55 PM CROSS COUNTRY/TRACK AND FIELD COACH Height 182.9 cm (6') 04/14/2019 1:55 PM CROSS COUNTRY/TRACK AND FIELD COACH Body Mass Index 28.05 04/14/2019 1:55 PM CROSS COUNTRY/TRACK AND FIELD COACH Plan of Treatment Health Maintenance Due Date Last Done Comments Colon Cancer Screening-Colonoscopy 1959 Depression Screening 1959 Fall Risk Assessment 1959 Hepatitis C Screening 1959 Hepatitis B Screening 1977 Pneumococcal vaccine 65+ (2 of 2 - PCV20 or PCV21) 2009 11/04/2004 DTaP/Tdap/Td Vaccine (2 - Td or Tdap) 07/14/2017 07/15/2007 Zoster Vaccine (2 of 2) 05/23/2023 03/28/2023 Abdominal Aortic Aneurysm (A AA) Screen 01/26/2024 03/28/2019 Well Visit 65+ 01/26/2024 Covid-19 Vaccine (4 - 2024-2 6 season) 2024 03/11/2024, 04/20/2020, 03/23/2020 Influenza Vaccine (#1) 2024 , 02/01/2023, 01/31/2022, Additional history exists Prostate Cancer Screening-PSA 11/28/2024, 11/29/2021, 11/23/2020, Additional history exists Procedures Procedure Name Priority Date/Time Associated Diagnosis Comments PSA DIAGNOSTIC Routine 11/28/2022 9:36 AM CDT Malignant neoplasm of prostate (HCC) from Last 3 Months or Most Recently Relevant to Health Maintenance Results * PSA diagnostic (11/28/2022 9:36 AM CDT) PSA-Total <0.01 <=5.40 ng/mL [facility] Comment: Interpretive Data AGE SEX REFERENCE INTERVAL 0 minutes-150 years Female None 0 minutes-49 years Male None 50-59 years Male 0-3.90 60-69 years Male 0-5.40 70-79 years Male 0-6.20 80-150 years Male 0-6.20 The Yehuda PSA Total assay procedure was used. Results from different manufacturers or methods may not be comparable. Serial testing should be performed using the same method. Current interpretive data last revised 21. Blood 11/28/2022 9:36 AM CDT 11/28/2022 10:07 AM CDT Andrei Chavez MD LAB BLOOD ORDERABLES nal Result [facility] [id number] [place] [address] from Last 3 Months or Most Recently Relevant to Health Maintenance Insurance [employer] [place] [employer] [place] [employer] [place] [employer] [place] Advance Directives For more information, please contact: [phone] * Full Code (Latest Code Status on File) Date Activated Date Inactivated Comments 05/01/2019 2:19 PM 05/02/2019 5:56 PM Care Teams Edge Drummer Relationship Specialty Start Date End Date Joseph June MD PCP - General Family Medicine 03/17/19
--- OUTSIDE RECORDS SUMMARY | 2024-12-19 13:53 | XMS_ITS | Encounter Summary ---
Author Organization [facility] Address [address] [place] [address] Care Team Providers Care Pharmacy Clinical Coordinator Name Role Phone Joseph June MD Primary Care Provider [phone] Encounter Details Date Type Department Care Team (Late st Contact Info) Description 12/16/2002 Outpatient Historical [facility] Care [facility] [address] [address] Jason Muhammad, DO * Social History Tobacco Use Types Packs/Day Years Used Date Smoking Tobacco: Never Assessed Sex and Gender Information Value Date Recorded Sex Assigned at Not on file Legal Sex Male 4:31 AM MEAL TEMPERER Gender Identity Not on file Sexual Orientation Not on file documented as of this encounter Plan of Treatment Upcoming Encounters Date Type Department Care Team (Late st Contact Info) Description 04/03/2025 9:15 AM MEAL TEMPERER Office Visit [facility] [address] [address] Joseph June MD [address] [place] [address] documented as of this encounter Visit Diagnoses Not on filedocumented in this encounter Care Teams Pharmacy Clinical Coordinator Relationship Specialty Start Date End Date Joseph June MD [address] [place] [address] PCP - General 12/19/06 documented as of this encounter
--- OUTSIDE RECORDS SUMMARY | 2024-12-19 13:53 | XMS_ITS | Clinical Summary ---
Author Organization [facility] Address [address] [place] [address] Phone Care Team Providers Care Printing Machine Operator Tape Rules Name Role Phone Joseph June MD Primary Care Provider [phone] Allergies No known active allergies Medications ASCORBIC ACID (VITAMIN C ORAL) Take by mouth 2 times daily. Active FERROUS SULFATE (FEOSOL ORAL) Take by mouth 2 times daily. Active valACYclovir (VALTREX) 1 gram tabletIndicati ons:HSV infection TAKE 1 TABLET TWICE A DAY FOR 7 DAYS NEEDED FOR EPISODE 60 Tablet 4 4 Active metoprolol succinate (TOPROL XL) 100 mg Extended Release 24 hour tablet Take 1 Tablet (100 mg) by mouth daily. 90 Tablet 3 5 Active tadalafiL (Cialis) 20 mg tablet Take 1 Tablet (20 mg) by mouth 1 time daily as needed for Erectile Dysfunction. 9 Tablet 6 5 Active olmesartan-amL ODIPine-HCTZ (TRIBENZOR) 20-5-12.5 mg tablet TAKE 1 TABLET DAILY 100 Tablet 3 5 Active metFORMIN (GLUCOPHAGE) 500 mg tablet TAKE 1 TABLET TWICE A DAY WITH MEALS 200 Tablet 3 5 Active rosuvastatin (CRESTOR) 10 mg tablet TAKE 1 TABLET DAILY 100 Tablet 3 5 Active rosuvastatin (CRESTOR) 10 mg tablet take 1 tablet daily 100 Tablet 3 4 025 Discontinued Active Problems Patient Care Coordination No te Formatting of this note addy arreguin be different from the original. Manager Sterile- Dr. Marcello Story Office Problem Noted Date Diagnosed Date Essential hypertension, benign Pure hypercholesterolemia Impotence of organic origin Anemia, unspecified Resolved Problems Problem Noted Date Diagnosed Date Resolved Date Prostate cancer 04/03/2019 01/31/2022 Overview (01/31/2022): Added automatically from request for surgery [id number] Anemia, unspecified 09/18/2008 09/19/19 09 Encounters Date Type Department Care Team Description 12/17/2024 Telephone [facility] [place] [facility] [address] [place] [address] Joseph June MD Primary Care Outreach (Microalbumin due) 12/09/2024 Refill [facility] - [place] [address] [place] [address] Joseph June MD from Last 3 Months Immunizations Immunization Administration Dates Next Due (ADACEL/BOOSTRIX)(10 YR UP) TDAP VACCINE, 0.5ML, IM 07/15/2007 (AREXVY)(60 YR UP) RSV, CHAVEZ MBINANT, PROTEIN SUBUNIT RSVPREF, ADJUVANT RECONSTITUTED, 0.5 ML, PF 03/06/2024 (CAPVAXIVE)(18 YRS AND UP) P NEUMOCOCCAL CONJUGATE PCV21, POLYSACCHARIDE CRM 197 CONJUGATE, 0.5 ML (PF) IM ADJUVANT 0.5 ML (PF) IM 03/11/2024 (SHINGRIX)(50 YRS UP) ZOSTER VACCINE RECOMBINANT, 0.5 ML, IM 03/28/2023 (SPIKEVAX) (12 YRS UP PRIMAR Y SERIES) COVID-19 VACCINE - MRNA-1273(PF) 100 MCG/0.5 ML IM SUSP 03/11/2024 (SPIKEVAX)(12YR UP) COVID-19 VACCINE, MRNA (PF)50 MCG/0.5 ML, IM SYRINGE 02/01/2023 INFLUENZA VACCINE HIGH DOSE TRIVALENT SPLIT VIRUS, (65 YR UP), 0.5ML (PF), IM 03/11/2024 INFLUENZA VACCINE QUADRIVALE NT 3 YR UP PF IM 2021,03/13/2018,01/30/2017 INFLUENZA VACCINE QUADRIVALE NT 6 MOS UP PF IM 01/31/2022,2021,01/28/2019 Influenza Seasonal Unspecifi ed Formulation IM 02/01/2023 Influenza Vaccine Split 3+ Yrs IM 12/31/2012 Pneumococcal conjugate, unsp ecified formulation 11/04/2004 Family History Medical History Relation Name Comments Hypertension Father Stroke Father Breast Cancer Mother Healthy Sister Relation Name Status Comments Father Alive Mother Sister Alive Social History Tobacco Use Types Packs/Day Years Used Date Smoking Tobacco: Never Smokeless Tobacco: Never Alcohol Use Standard Drinks/Week Comments Yes 0 (1 standard drink = 0.6 oz pur e alcohol) Sex and Gender Information Value Date Recorded Sex Assigned at Not on file Legal Sex Male 4:31 AM MEDICAL SERVICE TECHNICIAN Gender Identity Not on file Sexual Orientation Not on file Occupation Industry Job Start Date Job End Date Not on file Not on file Not on file Not on file Last Filed Vital Signs Vital Sign Reading Time Taken Comments Blood Pressure 130/66 04/02/2024 9:07 AM MEDICAL SERVICE TECHNICIAN Pulse 60 04/02/2024 9:07 AM MEDICAL SERVICE TECHNICIAN Temperature 36.8 C (98.3 F) 04/02/2024 9:07 AM MEDICAL SERVICE TECHNICIAN Respiratory Rate 14 04/02/2024 9:07 AM MEDICAL SERVICE TECHNICIAN Oxygen Saturation 97% 04/02/2024 9:07 AM MEDICAL SERVICE TECHNICIAN Inhaled Oxygen Concentration - - Weight 92.7 kg (204 lb 6.4 oz) 04/02/2024 9:07 A M MEDICAL SERVICE TECHNICIAN Height 182.9 cm (6') 04/02/2024 9:07 AM MEDICAL SERVICE TECHNICIAN Body Mass Index 27.72 04/02/2024 9:07 AM MEDICAL SERVICE TECHNICIAN Plan of Treatment Upcoming Encounters Date Type Department Care Team (Late st Contact Info) Description 04/03/2025 9:15 AM MEDICAL SERVICE TECHNICIAN Office Visit [facility] [place] [address] [address] Joseph June MD [address] [place] [phone] Health Maintenance Due Date Last Done Comments DIABETES ANNUAL RETINAL EXAM 1977 FIT/ DNA Q 3 YEARS (AUTO ORDER) 1977 FLEX SIG/CT COLONOGRAPHY Q 5 YEARS (AUTO ORDER) 1977 FIT-DNA Q 3 years 01/26/2004 Flex Sig/CT Colonography Q 5 years 01/26/2004 FIT/FOBT Q 1 YEAR (AUTO ORDER) 08/04/2004 08/05/2003 FIT/FOBT Q 1 year 08/04/2004 08/05/2003 DIABETES MICROALBUMIN ANNUAL SCREEN 01/26/2010 01/26/2009, 09/18/2008 DTAP/TDAP/TD VACCINES (2 - Td or Tdap) 07/14/2017 07/15/2007 DIABETES: A1C (Auto Order) 07/01/202404/02, 09/27/2023, 05/23/2023, Additional history exists DIABETES HBA1C Q 6 MONTHS 09/30/20242024, 09/27/2023, 05/23/2023, Additional history exists INFLUENZA VACCINE (#1) 2024 , 02/01/2023, 01/31/2022, Additional history exists COVID-19 Vaccine ( season) 2024 03/11/2024, 02/01/2023, 04/20/2020, Additional history exists DIABETES ANNUAL FOOT EXAM 04/02/2025 04/02/2024, LDL CHOLESTEROL ANNUAL 04/02/2025 , 05/23/2023, 01/31/2022, Additional history exists ZOSTER VACCINE (2 of 2) 04/02/2025 03/28/2023 Post poned from 05/23/2023 (Patient Refused) Traditional Medicare (ACO) Annual Wellness Visit 04/03/2025 04/02/2024 COLORECTAL CANCER SCREENING (AUTO ORDER) 01/08/2030 01/09/2020 COLORECTAL SCREENING 01/08/2030 01/09/2020, 12/06/2009 (Previously completed) Colorectal Cancer Screening (AUTO ORDER) 01/08/2030 Colorectal Cancer Screening 01/08/2030 RSV VACCINE (60+ or ) Completed 03/06/2024 PNEUMOCOCCAL VACCINE 50+ YEARS Completed 03/11/2024, 11/04/2004 Procedures Procedure Name Priority Date/Time Associated Diagnosis Comments LIPID PANEL Routine 04/02/2024 9:53 AM MEDICAL SERVICE TECHNICIAN POC HEMOGLOBIN A1C Routine 04/02/2024 9: 15 AM MEDICAL SERVICE TECHNICIAN Type 2 diabetes mellitus without complication, without long-term current use of insulin (CMS/HCC) ENDOSCOPY, COLON, SCREENING Routine 01/09/2020 MICROALBUMIN/CREATIN INE RATIO, RANDOM UR Routine 01/26/2009 8:53 AM MEDICAL SERVICE TECHNICIAN Essential Hypertension, Benign from Last 3 Months or Most Recently Relevant to Health Maintenance Results * LIPID PANEL (04/02/2024 9:53 AM MEDICAL SERVICE TECHNICIAN) CHOLESTEROL 169 <200 mg/dL [facility] HDL 63 > OR = 40 mg/dL [facility] TRIGLYCERIDE 119 <150 mg/dL [facility] LDL CALCULATED 84 mg/dL (calc) [facility] Comment: Reference range: <100 Desirable range <100 mg/dL for primary prevention; <70 mg/dL for patients with CHD or diabetic patients with > or = 2 CHD risk factors. LDL-C is now calculated using the Corwin-Castillo calculation, which is a validated novel method providing better accuracy than the Friedewald equation in the estimation of LDL-C. Corwin SS et al. HAMLET. 2013;310(19): 7694-0255 (http://education.SafeStore/faq/ZNA357) CHOL/HDL RATIO 2.7 <5.0 (calc) [facility] NON-HDL CHOLESTEROL 106 <130 mg/dL (calc) [facility] Comment: For patients with diabetes plus 1 major ASCVD risk factor, treating to a non-HDL-C goal of <100 mg/dL (LDL-C of <70 mg/dL) is considered a therapeutic option. Test Performed at: [facility] [address] [place] [address] Lakshmi Mosqueda Vo Blood 04/02/2024 9:53 AM MEDICAL SERVICE TECHNICIAN 04/02/2024 9:53 AM MEDICAL SERVICE TECHNICIAN Joseph June MD CHEMISTRY ORDERABLES Final R esult [facility] [phone] Arc[facility] [address] [place] [address] * (ABNORMAL) POC HEMOGLOBIN A1C (04/02/2024 9:15 AM MEDICAL SERVICE TECHNICIAN) HGB A1C POC 8.0(A) 4.0 - 6.0 % [facility] K[facility] NUMBER POC 749 BITA CONTRERAS KIT EXP DATE POC 08/2025 BITA CONTRERAS Blood, capillary 04/02/2024 9:15 AM MEDICAL SERVICE TECHNICIAN Joseph June MD POINT OF CARE TESTING Final Result Performing Organization Address City/[facility]/ZIP Co de Phone Number BITA CONTRERAS CLIA# [id number] [address] [place] [address] * ENDOSCOPY, COLON, SCREENING (01/09/2020) Abstract Provider GI PROCEDURE ORDERABLES Edited Result - Final Performing Organization Address [facility] Co de Phone Number BITA CONTRERAS CLIA# [id number] [address] [place] [address] * (ABNORMAL) MICROALBUMIN/CREATININE RATIO, RANDOM UR (01/26/2009 8:53 AM MEDICAL SERVICE TECHNICIAN) MICROALBUMIN/C REAT RATIO, UR 281(H) 0 - 29 mg/g creatinine [facility] Urine specimen (specimen) 01/26/2009 8:53 AM MEDICAL SERVICE TECHNICIAN 01/26/2009 10:08 AM MEDICAL SERVICE TECHNICIAN Joseph June MD URINE ORDERABLES Final Resul t [facility] CLIA# [id number] [address] [place] [address] from Last 3 Months or Most Recently Relevant to Health Maintenance Insurance MEDICARE PART A AND B [facility] [id number] Care Teams Printing Machine Operator Tape Rules Relationship Specialty Start Date End Date Joseph June MD [facility] [address] [phone] PCP - General 12/19/06
--- OUTSIDE RECORDS SUMMARY | 2024-12-19 13:53 | XMS_ITS | Encounter Summary ---
Author Organization [facility] Address [address] [place] [address] Care Team Providers Care Manager Event Name Role Phone Joseph June MD Primary Care Provider [phone] Encounter Details Date Type Department Care Team (Late st Contact Info) Description 04/18/2002 Outpatient Historical [facility] Care [facility] [address] [address] Jason Muhammad, DO * Social History Tobacco Use Types Packs/Day Years Used Date Smoking Tobacco: Never Assessed Sex and Gender Information Value Date Recorded Sex Assigned at Not on file Legal Sex Male 4:31 AM ENDOCRINOLOGY NURSE Gender Identity Not on file Sexual Orientation Not on file documented as of this encounter Plan of Treatment Upcoming Encounters Date Type Department Care Team (Late st Contact Info) Description 04/03/2025 9:15 AM ENDOCRINOLOGY NURSE Office Visit [facility] [address] [address] Joseph June MD [address] [place] [address] documented as of this encounter Visit Diagnoses Not on filedocumented in this encounter Care Teams Manager Event Relationship Specialty Start Date End Date Joseph June MD [address] [place] [address] PCP - General 12/19/06 documented as of this encounter
--- OUTSIDE RECORDS SUMMARY | 2024-12-19 13:53 | XMS_ITS | Encounter Summary ---
Author Organization [facility] Address [address] [place] [address] Care Team Providers Care Farmer Cash Grain Name Role Phone Joseph June MD Primary Care Provider [phone] Encounter Details Date Type Department Care Team (Latest Contact Info) Description 07/15/2007 Outpatient Historical [facility] Joseph June MD [address] [employer] [place] [address] [phone] Pure Hypercholesterolemia Social History Tobacco Use Types Packs/Day Years Used Date Smoking Tobacco: Never Assessed Sex and Gender Information Value Date Recorded Sex Assigned at Not on file Legal Sex Male 4:31 AM RADIATION THERAPIST Gender Identity Not on file Sexual Orientation Not on file documented as of this encounter Plan of Treatment Upcoming Encounters Date Type Department Care Team (Late st Contact Info) Description 04/03/2025 9:15 AM RADIATION THERAPIST Office Visit [facility] Primary Care - [place] [address] [place] [phone] Joseph June MD [address] [facility] [address] [place] [phone] documented as of this encounter Procedures Procedure Name Priority Date/Time Associated Diagnosis Comments CBC WITH DIFFERENTIAL Routine 07/15/2007 10:58 AM CDT LIPID PANEL Routine 07/15/2007 10:58 AM CDT COMPREHENSIVE METABOLIC PANEL Routine 07/15/2007 10:58 AM CDT documented in this encounter Results * (ABNORMAL) COMPREHENSIVE METABOLIC PANEL (07/15/2007 10:58 AM CDT) CREATININE 1.06 0.67 - 1.17 mg/dL [facility] ALT 24 0 - 41 U/L [facility] SODIUM 141 135 - 145 mmol/L [facility] POTASSIUM 3.8 3.5 - 4.9 mmol/L [facility] ALKALINE PHOSPHATASE 76 40 - 129 U/L [facility] BILIRUBIN TOTAL 0.2 0.2 - 1.0 mg/dL [facility] TOTAL PROTEIN 7.7 6.3 - 8.6 g/dL [facility] CHLORIDE 102 96 - 108 mmol/L [facility] GLUCOSE 106(H) 65 - 99 mg/dL [facility] AST 28 12 - 38 U/L [facility] BUN 16 6 - 20 mg/dL [facility] CO2 29 22 - 30 mmol/L [facility] CALCIUM 9.1 8.4 - 10.2 mg/dL [facility] ALBUMIN 4.4 3.4 - 4.8 g/dL [facility] GFR, >60 >=60 mL/min/1. 7 sq meter [facility] GFR >60 >=60 mL/min/1. 7 sq meter [facility] Comment: Estimated GFR rate interpretative information for both Americans and non- Americans is available on the [facility] Intranet at: [email or web address] Select: Lab Policies and Procedures Select: Reference Ranges - GFR Blood specimen (specimen) 07/15/2007 10:58 AM CDT 07/15/2007 3:04 PM CDT Joseph June MD CHEMISTRY ORDERABLES Edited [facility] CLIA# [id number] [address] [place] [address] * (ABNORMAL) CBC WITH DIFFERENTIAL (07/15/2007 10:58 AM CDT) RBC 4.80 4.50 - 5.40 M/uL [facility] MCHC 32.0 31.5 - 35.5 % [facility] MCV 79.4(L) 82.0 - 99.0 fL [facility] PLATELETS 277 140 - 350 K/uL [facility] HEMOGLOBIN 12.2(L) 13.6 - 16.5 g/dL [facility] RDW 15.0(H) 11.5 - 14.5 % [facility] WBC 5.2 4.0 - 9.8 K/uL [facility] MCH 25.4(L) 27.2 - 32.6 pg [facility] MPV 10.4 9.3 - 12.4 fL [facility] HEMATOCRIT 38.1(L) 40.0 - 48.0 % [facility] RDW-STDEV 43.5 37.1 - 48.7 fL [facility] NEUTROPHILS 50 45 - 70 % [facility] BASOPHILS 1 0 - 2 % [facility] EOSINOPHIL ABSOLUTE 0.43 0.00 - 0.70 K/uL [facility] NEUTROPHIL ABSOLUTE 2.62 1.90 - 7.00 K/uL [facility] MONOCYTES 6 3 - 13 % [facility] LYMPHOCYTES 35 16 - 45 % [facility] BASOPHILS ABSOLUTE 0.03 0.00 - 0.20 K/uL [facility] LYMPHOCYTE ABSOLUTE 1.83 0.70 - 4.50 K/uL [facility] EOSINOPHILS 8(H) 0 - 7 % [facility] MONOCYTE ABSOLUTE 0.32 0.10 - 1.30 K/uL [facility] Blood specimen (specimen) 07/15/2007 10:58 AM CDT 07/15/2007 3:04 PM CDT Result [facility] Joseph June MD HEMATOLOGY ORDERABLES Edited Performing Organization Address City/[facility]/ZIP Co de Phone Number INTERFACE SYSTEM Refer to clinic/hospital department [facility] CLIA# [id number] [address] [place] [address] * (ABNORMAL) LIPID PANEL (07/15/2007 10:58 AM CDT) HDL 61(H) 40 - 59 mg/dL [facility] TRIGLYCERIDE 87 10 - 149 mg/dL [facility] CHOL/HDL RATIO 2.5 2.0 - 5.0 [facility] CHOLESTEROL 154 100 - 199 mg/dL [facility] LDL CALCULATED 76 <=99 mg/dL [facility] LIPID PANEL COMMENT See Below [facility] Comment: The adult ATP and pediatric NCEP classifications for lipids are available on the [facility] Intranet at: [email or web address] Select: Lab Policies and Procedures,Current Select: Lipid Panel Interpretation Blood specimen (specimen) 07/15/2007 10:58 AM CDT 07/15/2007 3:04 PM CDT Joseph June MD CHEMISTRY ORDERABLES Edited [facility] CLIA# [id number] [address] [place] [address] documented in this encounter Visit Diagnoses Diagnosis Pure hypercholesterolemia documented in this encounter Care Teams Farmer Cash Grain Relationship Specialty Start Date End Date Joseph June MD [address] [place] [address] PCP - General 12/19/06 documented as of this encounter
--- OUTSIDE RECORDS SUMMARY | 2024-12-19 13:53 | XMS_ITS | Encounter Summary ---
Author Organization [facility] Address [address] [place] [address] Care Team Providers Care Chain Maker Name Role Phone Joseph June MD Primary Care Provider [phone] Encounter Details Date Type Department Care Team (Late st Contact Info) Description 12/19/2005 Outpatient Historical [facility] Jason Muhammad DO * Social History Tobacco Use Types Packs/Day Years Used Date Smoking Tobacco: Never Assessed Sex and Gender Information Value Date Recorded Sex Assigned at Not on file Legal Sex Male 4:31 AM ARCHIVAL RECORDS CLERK Gender Identity Not on file Sexual Orientation Not on file documented as of this encounter Plan of Treatment Upcoming Encounters Date Type Department Care Team (Late Contact Info) Description 04/03/2025 9:15 AM ARCHIVAL RECORDS CLERK Office Visit [facility] Primary Care - [place] [address] [facility] [address] [place] [address] Joseph June MD [address] [facility] [address] [place] [address] documented as of this encounter Visit Diagnoses Not on filedocumented in this encounter Care Teams Chain Maker Relationship Specialty Start Date End Date Joseph June MD [address] [facility] [address] [place] [address] PCP - General 12/19/06 documented as of this encounter
--- OUTSIDE RECORDS SUMMARY | 2024-12-19 13:53 | XMS_ITS | Encounter Summary ---
Author Organization [facility] Address [address] [place] [address] Care Team Providers Care Resident Buyer Name Role Phone Joseph June MD Primary Care Provider [phone] Encounter Details Date Type Department Care Team (Latest Contact Info) Description 11/17/2005 Outpatient Historical [facility] Jason Muhammad DO * Unspecified Hypothyroidism (Primary Dx) Social History Tobacco Use Types Packs/Day Years Used Date Smoking Tobacco: Never Assessed Sex and Gender Information Value Date Recorded Sex Assigned at Not on file Legal Sex Male 4:31 AM PART MAKER Gender Identity Not on file Sexual Orientation Not on file documented as of this encounter Plan of Treatment Upcoming Encounters Date Type Department Care Team (Late st Contact Info) Description 04/03/2025 9:15 AM PART MAKER Office Visit [facility] Primary Care - [place] [address] [facility] [place] [address] Joseph June MD [address] [facility] [address] [facility] [address] [place] [address] documented as of this encounter Procedures Procedure Name Priority Date/Time Associated Diagnosis Comments CREATININE, 24 HR URINE Routine 11/20/2005 11:05 AM CDT PROTEIN, 24 HR URINE Routine 11/20/2005 11:05 AM CDT T4 TOTAL Routine 11/17/2005 10:23 AM CDT CBC WITH DIFFERENTIAL Routine 11/17/2005 10:23 AM CDT CBC WITH DIFFERENTIAL Routine 11/17/2005 10:23 AM CDT TSH Routine 11/17/2005 10:23 AM CDT PSA Routine 11/17/2005 10:23 AM CDT HEPATIC FUNCTION PANEL Routine 11/17/2005 10:23 AM CDT LIPID PANEL Routine 11/17/2005 10:23 AM CDT BASIC METABOLIC PANEL Routine 11/17/2005 10:23 AM CDT URINALYSIS W/REFLEX MICROSCOPIC Routine 11/17/2005 10:14 AM CDT documented in this encounter Results * (ABNORMAL) CREATININE, 24 HR URINE (11/20/2005 11:05 AM CDT) START DATE 24 HR UR [id number] :[id number] :0:0 INTERFACE SYSTEM START TIME 24 HR UR 0800 time INTERFACE SYSTEM LENGTH OF COLLECTION 24 23 - 25 hr INTERFACE SYSTEM VOLUME, 24 HR URINE 2500 mL INTERFACE SYSTEM CREATININE, 24 HR URINE 2.6(H) 0.8 - 2.0 g/24 hrs INTERFACE SYSTEM 11/20/2005 11:0 5 AM CDT us Historical Provider URINE ORDERABLES Final Resul t INTERFACE SYSTEM Refer to clinic/hospital department * (ABNORMAL) PROTEIN, 24 HR URINE (11/20/2005 11:05 AM CDT) PROTEIN TOTAL, 24 HR URINE 0.20(H) 0.00 - 0.15 g/24 hrs INTERFACE SYSTEM PROTEIN CONCENTRATION 8.0 mg/dL INTERFACE SYSTEM 11/20/2005 11:0 5 AM CDT Historical Provider URINE ORDERABLES Final Resul t Performing Organization Address City/[facility] de Phone Number INTERFACE SYSTEM Refer to clinic/hospital department * CBC WITH DIFFERENTIAL (11/17/2005 10:23 AM CDT) NEUTROPHILS 52 45 - 70 % INTERFAC E SYSTEM LYMPHOCYTES 34 16 - 45 % INTERFAC E SYSTEM MONOCYTES 6 3 - 13 % INTERFACE SYSTEM EOSINOPHILS 7 0 - 7 % INTERFAC E SYSTEM BASOPHILS 1 0 - 2 % INTERFACE SYSTEM NEUTROPHIL ABSOLUTE 2.87 1.90 - 7.00 K/uL INTERFACE SYSTEM LYMPHOCYTE ABSOLUTE 1.89 0.70 - 4.50 K/uL INTERFACE SYSTEM MONOCYTE ABSOLUTE 0.35 0.10 - 1.30 K/uL INTERFACE SYSTEM EOSINOPHIL ABSOLUTE 0.37 0.00 - 0.70 K/uL INTERFACE SYSTEM BASOPHILS ABSOLUTE 0.04 0.00 - 0.20 K/uL INTERFACE SYSTEM 11/17/2005 10:2 3 AM CDT us Historical Provider HEMATOLOGY ORDERABLES Final Result Performing Organization Address City/[facility] de Phone Number INTERFACE SYSTEM Refer to clinic/hospital department * (ABNORMAL) CBC WITH DIFFERENTIAL (11/17/2005 10:23 AM CDT) WBC 5.5 4.0 - 9.8 K/uL INTERFACE SYSTEM RBC 4.82 4.50 - 5.40 M/uL INTERFACE SYSTEM HEMOGLOBIN 12.5(L) 13.6 - 16.5 g/dL INTERFACE SYSTEM HEMATOCRIT 38.1(L) 40.0 - 48.0 % INTERFACE SYSTEM MCV 79.0(L) 82.0 - 99.0 fL INTERFACE SYSTEM MCH 25.9(L) 27.2 - 32.6 pg INTERFACE SYSTEM MCHC 32.8 31.5 - 35.5 % INTERFACE SYSTEM RDW 13.9 11.5 - 14.5 % INTERFACE SYSTEM RDW-STDEV 40.3 37.1 - 48.7 fL INTERFACE SYSTEM PLATELETS 299 140 - 350 K/uL INTERFACE SYSTEM MPV 10.0 9.3 - 12.4 fL INTERFACE SYSTEM 11/17/2005 10:2 3 AM CDT us Historical Provider HEMATOLOGY ORDERABLES Final Result Performing Organization Address City/[facility] de Phone Number INTERFACE SYSTEM Refer to clinic/hospital department * HEPATIC FUNCTION PANEL (11/17/2005 10:23 AM CDT) ALKALINE PHOSPHATASE 73 40 - 129 U/L INTERFACE SYSTEM AST 30 12 - 38 U/L INTERFACE SYSTEM ALT 29 0 - 41 U/L INTERFACE SYSTEM TOTAL PROTEIN 7.6 6.3 - 8.6 g/dL INTERFACE SYSTEM ALBUMIN 4.4 3.4 - 4.8 g/dL INTERFACE SYSTEM BILIRUBIN TOTAL 0.5 0.2 - 1.0 mg/dL INTERFACE SYSTEM BILIRUBIN DIRECT 0.1 0.0 - 0.3 mg/dL INTERFACE SYSTEM 11/17/2005 10:2 3 AM CDT Historical Provider CHEMISTRY ORDERABLES Final R esult Performing Organization Address [facility] Phone Number INTERFACE SYSTEM Refer to clinic/hospital department * (ABNORMAL) LIPID PANEL (11/17/2005 10:23 AM CDT) CHOLESTEROL 187 100 - 199 mg/dL INTERFACE SYSTEM TRIGLYCERIDE 109 10 - 149 mg/dL INTERFACE SYSTEM HDL 68(H) 40 - 59 mg/dL INTERFACE SYSTEM CHOL/HDL RATIO 2.8 2.0 - 5.0 INTER FACE SYSTEM LDL CALCULATED 97 <=99 mg/dL INTERFACE SYSTEM LIPID PANEL COMMENT See Below INTERFACE SYSTEM Comment: The adult ATP and pediatric NCEP classifications for lipids are available on the [facility] Intranet at: [email or web address] Select: Lab Policies and Procedures Select: Reference Ranges - Lipids 11/17/2005 10:2 3 AM CDT Historical Provider CHEMISTRY ORDERABLES Final R esult Performing Organization Address City/[facility] de Phone Number INTERFACE SYSTEM Refer to clinic/hospital department * (ABNORMAL) BASIC METABOLIC PANEL (11/17/2005 10:23 AM CDT) GLUCOSE 100(H) 65 - 99 mg/dL INTERFACE SYSTEM CREATININE 1.1 0.5 - 1.3 mg/dL INTERFACE SYSTEM CALCIUM 9.5 8.4 - 10.2 mg/dL INTERFACE SYSTEM BUN 16 6 - 20 mg/dL INTERFACE SYSTEM SODIUM 140 135 - 145 mmol/L INTERFACE SYSTEM POTASSIUM 3.9 3.5 - 4.9 mmol/L INTERFACE SYSTEM CHLORIDE 101 96 - 108 mmol/L INTERFACE SYSTEM CO2 29 22 - 30 mmol/L INTERFACE SYSTEM 11/17/2005 10:2 3 AM CDT Historical Provider CHEMISTRY ORDERABLES Final R esult INTERFACE SYSTEM Refer to clinic/hospital department * PSA (11/17/2005 10:23 AM CDT) PSA 0.7 0.0 - 4.0 ng/mL INTERFACE SYSTEM Comment:Performed on [employer] E170 System 11/17/2005 10:2 3 AM CDT Historical Provider CHEMISTRY ORDERABLES Final R esult INTERFACE SYSTEM Refer to clinic/hospital department * TSH (11/17/2005 10:23 AM CDT) TSH 0.62 0.27 - 4.20 uU/mL INTERFACE SYSTEM 11/17/2005 10:2 3 AM CDT Historical Provider CHEMISTRY ORDERABLES Final R esult INTERFACE SYSTEM Refer to clinic/hospital department * T4 TOTAL (11/17/2005 10:23 AM CDT) T4 TOTAL 7.0 4.5 - 12.5 ug/dL INTERFACE SYSTEM Comment: Lab test performed by: [facility] [id number] [place] [id number] PRASHANTH MORFIN MD 11/17/2005 10:2 3 AM CDT us Historical Provider CHEMISTRY ORDERABLES Final R esult Performing Organization Address City/[facility] Co de Phone Number INTERFACE SYSTEM Refer to clinic/hospital department * URINALYSIS (11/17/2005 10:14 AM CDT) COLOR UA Yellow INTERFACE SYSTEM CLARITY UA Clear Clear INTERFACE SYSTEM SPECIFIC GRAVITY UA 1.010 1.001 - 1.035 INTERFACE SYSTEM PH UA 6.5 5.0 - 8.0 INTERFACE SYSTEM LEUKOCYTE ESTERASE UA Negative Negative INTERFACE SYSTEM NITRITE UA Negative Negative INTERFACE SYSTEM PROTEIN UA Negative Negative INTERFACE SYSTEM GLUCOSE UA Negative Negative INTERFACE SYSTEM KETONES UA Negative Negative INTERFACE SYSTEM UROBILINOGEN UA <1 <1 mg/dL INTE RFACE SYSTEM BILIRUBIN UA Negative Negative INTERFA CE SYSTEM BLOOD UA Negative Negative INTERFACE SYSTEM 11/17/2005 10:1 4 AM CDT Historical Provider URINE ORDERABLES Final Resul t Performing Organization Address [facility] de Phone Number INTERFACE SYSTEM Refer to clinic/hospital department documented in this encounter Visit Diagnoses Diagnosis Unspecified hypothyroidism- Primary documented in this encounter Care Teams Resident Buyer Relationship Specialty Start Date End Date Joseph June MD [address] [place] [address] [place] [address] PCP - General 12/19/06 documented as of this encounter
--- OUTSIDE RECORDS SUMMARY | 2024-12-19 13:53 | XMS_ITS | Encounter Summary ---
Author Organization [facility] Address [address] [place] [address] Care Team Providers Care Soft Hat Binder Name Role Phone Joseph June MD Primary Care Provider [phone] Encounter Details Date Type Department Care Team (Late st Contact Info) Description 11/17/2005 Outpatient Historical [facility] Care [facility] [address] [address] Jason Muhammad, DO * Social History Tobacco Use Types Packs/Day Years Used Date Smoking Tobacco: Never Assessed Sex and Gender Information Value Date Recorded Sex Assigned at Not on file Legal Sex Male 4:31 AM SPECIAL SERVICES DIRECTOR Gender Identity Not on file Sexual Orientation Not on file documented as of this encounter Plan of Treatment Upcoming Encounters Date Type Department Care Team (Late st Contact Info) Description 04/03/2025 9:15 AM SPECIAL SERVICES DIRECTOR Office Visit [facility] [address] [address] Joseph June MD [address] [place] [address] documented as of this encounter Visit Diagnoses Not on filedocumented in this encounter Care Teams Soft Hat Binder Relationship Specialty Start Date End Date Joseph June MD [address] [place] [address] PCP - General 12/19/06 documented as of this encounter
--- OUTSIDE RECORDS SUMMARY | 2024-12-19 13:53 | XMS_ITS ---
Author Organization [employer] [facility] Address [address] [facility] [place] [address] Phone Care Team Providers Care Photo Optics Technician Name Role Phone Joseph June MD Primary Care Provider [phone] Active Problems Patient Care Coordination No te Formatting of this note migh t be different from the original. Quality Assurance Technician- Dr. Marcello Story Office Problem Noted Date Diagnosed Date Essential hypertension, benign Pure hypercholesterolemia Impotence of organic origin Anemia, unspecified Current Treatment and Therapy Plans No current plan information found. Past Treatment and Therapy Plans No past plan information found. Lifetime Dose Tracking * Chemical Lifetime Dose Automatic Entry Manual Entr y Effective Dose 9.2 mSv 9.2 mSv 0 mSv Total DLP 590 DLP 590 DLP 0 DLP CTDIvol Max 11.2 mGy 11.2 mGy 0 mGy CTDIvol Min 11.2 mGy 11.2 mGy 0 mGy Resolved Problems Problem Noted Date Diagnosed Date Resolved Date Prostate cancer 04/03/2019 01/31/2022 Overview (01/31/2022): Added automatically from request for surgery [id number] Anemia, unspecified 09/18/2008 09/19/19 09
--- OUTSIDE RECORDS SUMMARY | 2024-12-19 13:53 | XMS_ITS | Encounter Summary ---
Author Organization [facility] Address [address] [place] [address] Care Team Providers Care Continuous Linter Drier Operator Name Role Phone Joseph June MD Primary Care Provider [phone] Encounter Details Date Type Department Care Team (Late Contact Info) Description 09/18/2008 Outpatient Historical [facility] Joseph June MD [address] [place] [address] [place] [phone] Essential Hypertension, Benign; Pure Hypercholesterolemi a; Screening, Thyroid Disorder; Screening for Prostate Cancer Social History Tobacco Use Types Packs/Day Years Used Date Smoking Tobacco: Never Sex and Gender Information Value Date Recorded Sex Assigned at Not on file Legal Sex Male 4:31 AM ELECTRICAL RESEARCH ENGINEER Gender Identity Not on file Sexual Orientation Not on file documented as of this encounter Plan of Treatment Upcoming Encounters Date Type Department Care Team (Late Contact Info) Description 04/03/2025 9:15 AM ELECTRICAL RESEARCH ENGINEER Office Visit [facility] [place] [address] [place] [phone] Joseph June MD [address] [place] [address] [address] [place] [phone] documented as of this encounter Procedures Procedure Name Priority Date/Time Associated Diagnosis Comments TSH REFLEXIVE Routine 09/18/2008 10:54 AM CDT Screening, Thyroid Disorder CBC WITHOUT DIFFERENTIAL Routine 09/18/2008 10:54 AM CDT Essential Hypertension, Benign LIPID PANEL Routine 09/18/2008 10:54 AM CDT Pure Hypercholesterolemia COMPREHENSIVE METABOLIC PANEL Routine 09/18/2008 10:54 AM CDT Essential Hypertension, Benign MICROALBUMIN/CREATI NINE RATIO, RANDOM UR Routine 09/18/2008 10:47 AM CDT Essential Hypertension, Benign PSA,TOTAL AND FREE Routine 09/18/2008 10:47 AM CDT Screening for Prostate Cancer documented in this encounter Results * TSH REFLEXIVE (09/18/2008 10:54 AM CDT) Pathologist [facility] TSH 0.79 0.27 - 4.20 uU/mL [facility] 09/18/2008 10:5 4 AM CDT 09/18/2008 12:44 PM CDT us Joseph June MD CHEMISTRY ORDERABLES Final R esult INTERFACE SYSTEM Refer to clinic/hospital department [facility] CLIA# [id number] 5 [facility] [place] [address] * (ABNORMAL) LIPID PANEL (09/18/2008 10:54 AM CDT) CHOL/HDL RATIO 3.0 2.0 - 5.0 [facility] TRIGLYCERIDE 90 10 - 149 mg/dL [facility] HDL 59 40 - 59 mg/dL [facility] CHOLESTEROL 179 100 - 199 mg/dL [facility] LDL CALCULATED 102(H) <=99 mg/dL [facility] LIPID PANEL COMMENT See Below [facility] Comment: The adult ATP and pediatric NCEP classifications for lipids are available on the [facility] Intranet at: [email or web address] Select: Lab Policies and Procedures,Current Select: Lipid Panel Interpretation 09/18/2008 10:5 4 AM CDT 09/18/2008 12:44 PM CDT Joseph June MD CHEMISTRY ORDERABLES Edited INTERFACE SYSTEM Refer to clinic/hospital department [facility] CLIA# [id number] [address] [place] [address] * (ABNORMAL) COMPREHENSIVE METABOLIC PANEL (09/18/2008 10:54 AM CDT) SODIUM 140 135 - 145 mmol/L [facility] ALKALINE PHOSPHATASE 78 40 - 129 U/L [facility] CO2 30 22 - 30 mmol/L [facility] BILIRUBIN TOTAL 0.2 0.2 - 1.0 mg/dL [facility] POTASSIUM 4.1 3.5 - 4.9 mmol/L [facility] TOTAL PROTEIN 7.1 6.3 - 8.6 g/dL [facility] GLUCOSE 101(H) 65 - 99 mg/dL [facility] AST 35 12 - 38 U/L [facility] BUN 18 6 - 20 mg/dL [facility] CALCIUM 9.9 8.6 - 10.2 mg/dL [facility] ALBUMIN 3.9 3.4 - 4.8 g/dL [facility] CHLORIDE 101 96 - 108 mmol/L [facility] CREATININE 1.12 0.67 - 1.17 mg/dL [facility] ALT 30 0 - 41 U/L [facility] GFR, >60 >=60 mL/min/1. 7 sq meter [facility] GFR >60 >=60 mL/min/1. 7 sq meter [facility] Comment: Modification of Diet in Renal Disease (MDRD) study formula. Estimated GFR rate interpretative information for both Americans and non- Americans is available on the [facility] Intranet at: [email or web address] Select: Lab Policies and Procedures Select: Reference Ranges - GFR 09/18/2008 10:5 4 AM CDT 09/18/2008 12:44 PM CDT Joseph June MD CHEMISTRY ORDERABLES Edited INTERFACE SYSTEM Refer to clinic/hospital department [facility] CLIA# [id number] [address] [place] [address] * (ABNORMAL) CBC WITHOUT DIFFERENTIAL (09/18/2008 10:54 AM CDT) MCH 25.9(L) 27.2 - 32.6 pg [facility] MPV 10.5 9.3 - 12.4 fL [facility] HEMOGLOBIN 12.1(L) 13.6 - 16.5 g/dL [facility] MCV 80.7(L) 82.0 - 99.0 fL [facility] RDW-STDEV 40.6 37.1 - 48.7 fL [facility] HEMATOCRIT 37.7(L) 40.0 - 48.0 % [facility] MCHC 32.1 31.5 - 35.5 % [facility] WBC 6.3 4.0 - 9.8 K/uL [facility] PLATELETS 271 140 - 350 K/uL [facility] RBC 4.67 4.50 - 5.40 M/uL [facility] RDW 13.9 11.5 - 14.5 % [facility] 09/18/2008 10:5 4 AM CDT 09/18/2008 12:44 PM CDT Joseph June MD HEMATOLOGY ORDERABLES Final Result Performing Organization Address [facility] Phone Number INTERFACE SYSTEM Refer to clinic/hospital department [facility] CLIA# [id number] [address] [facility] [place] [address] * (ABNORMAL) MICROALBUMIN/CREATININE RATIO, RANDOM UR (09/18/2008 10:47 AM CDT) MICROALBUMIN/C REAT RATIO, UR 371(H) 0 - 29 mg/g creatinine [facility] 09/18/2008 10:4 7 AM CDT 09/18/2008 12:44 PM CDT Joseph June MD URINE ORDERABLES Final Resul t Performing Organization Address [facility] Phone Number INTERFACE SYSTEM Refer to clinic/hospital department [facility] CLIA# [id number] [address] [place] [address] * PSA,TOTAL AND FREE (09/18/2008 10:47 AM CDT) PSA FREE 0.3 ng/mL [facility] % FREE PSA 50 >25 % (CALC) [facility] Comment: PSA(NG/ML) FREE PSA(%) ESTIMATED(x) PROBABILITY OF CANCER( %) 0-2.5 (*) APPROX. 1 2.6-4.0(1) 0-27(2) 24(3) 4.1-10(4) 0-10 56 11-15 28 16-20 20 21-25 16 >OR=26 8 >10(+) N/A >50 REFERENCES:(1)JAILYN ET AL.:UROLOGY 60: 469-474 (2002) (2)JAILYN ET AL.:J.UROL 168: 922-925 (2001) FREE PSA(%) SENSITIVITY(%) SPECIFICITY(%) < OR = 25 85 19 < OR = 30 93 9 (3)JAILYN ET AL.:HAMLET 277: 2435-7846 (1996) (4)CATALONA ET AL.:HAMLET 279: 9709-4026 (1997) (x)THESE ESTIMATES VARY WITH AGE, ETHNICITY, FAMILY HISTORY AND CONRAD RESULTS. (*)THE DIAGNOSTIC USEFULNESS OF % FREE PSA HAS NOT BEEN ESTABLISHED IN PATIENTS WITH TOTAL PSA BELOW 2.6 NG/ML. (+)IN MEN WITH PSA ABOVE 10 NG/ML, PROSTATE CANCER RISK IS DETERMINED BY TOTAL PSA ALONE. THIS TEST WAS PERFORMED USING THE JUAN M KARLENE IMMUNOASSAY METHOD. VALUES OBTAINED FROM DIFFERENT ASSAY METHODS CANNOT BE USED INTERCHANGEABLY. PSA LEVELS, REGARDLESS OF VALUE, SHOULD NOT BE INTERPRETED ABSOLUTE EVIDENCE OF THE PRESENCE OR ABSENCE OF DISEASE. Lab test performed by: [facility] [id number] [place] [address] RHONDA BASS MD PSA 0.6 < OR = 4.0 ng/mL [facility] 09/18/2008 10:4 7 AM CDT 09/18/2008 12:44 PM CDT Joseph June MD CHEMISTRY ORDERABLES Final R esult INTERFACE SYSTEM Refer to clinic/hospital department [facility] CLIA# [id number] [address] [facility] [facility] [place] [address] documented in this encounter Visit Diagnoses Diagnosis Essential hypertension, benign Pure hypercholesterolemia Screening, thyroid disorder Screening for thyroid disorder Screening for prostate cancer Special screening for malignant neoplasm of prostate documented in this encounter Care Teams Continuous Linter Drier Operator Relationship Specialty Start Date End Date Joseph June MD [address] [place] [phone] PCP - General 12/19/06 documented as of this encounter
--- OUTSIDE RECORDS SUMMARY | 2024-12-19 13:53 | XMS_ITS | Encounter Summary ---
Author Organization [facility] Address [address] [place] [address] Care Team Providers Care Arranging Funeral Director Name Role Phone Joseph June MD Primary Care Provider [phone] Encounter Details Date Type Department Care Team (Late st Contact Info) Description 10/30/2001 Outpatient Historical [facility] [address] [phone] Jason Muhammad, DO * Social History Tobacco Use Types Packs/Day Years Used Date Smoking Tobacco: Never Assessed Sex and Gender Information Value Date Recorded Sex Assigned at Not on file Legal Sex Male 4:31 AM VISUAL EDUCATOR Gender Identity Not on file Sexual Orientation Not on file documented as of this encounter Plan of Treatment Upcoming Encounters Date Type Department Care Team (Late st Contact Info) Description 04/03/2025 9:15 AM VISUAL EDUCATOR Office Visit [facility] [address] [phone] Joseph June MD [address] [place] [address] documented as of this encounter Visit Diagnoses Not on filedocumented in this encounter Care Teams Arranging Funeral Director Relationship Specialty Start Date End Date Joseph June MD [address] [place] [address] PCP - General 12/19/06 documented as of this encounter
--- OUTSIDE RECORDS SUMMARY | 2024-12-19 13:53 | XMS_ITS | Encounter Summary ---
Author Organization [facility] Address [address] [place] [address] Care Team Providers Care Electronics Scale Tester Name Role Phone Joseph June MD Primary Care Provider [phone] Encounter Details Date Type Department Care Team (Latest Contact Info) Description 05/17/2006 Outpatient Historical HIS [facility] Jason Muhammad DO * Other and Unspecified Hyperlipidemia (Primary Dx) Social History Tobacco Use Types Packs/Day Years Used Date Smoking Tobacco: Never Assessed Sex and Gender Information Value Date Recorded Sex Assigned at Not on file Legal Sex Male 4:31 AM CARDIAC NURSE SPECIALIST Gender Identity Not on file Sexual Orientation Not on file documented as of this encounter Plan of Treatment Upcoming Encounters Date Type Department Care Team (Late st Contact Info) Description 04/03/2025 9:15 AM CARDIAC NURSE SPECIALIST Office Visit [facility] - [place] [address] [facility] [place] [address] Joseph June MD [address] [facility] [address] [place] [address] documented as of this encounter Procedures Procedure Name Priority Date/Time Associated Diagnosis Comments HEPATIC FUNCTION PANEL Routine 05/17/2006 10:59 AM CDT LIPID PANEL Routine 05/17/2006 10:59 AM CDT documented in this encounter Results * (ABNORMAL) LIPID PANEL (05/17/2006 10:59 AM CDT) CHOLESTEROL 182 100 - 199 mg/dL INTERFACE SYSTEM TRIGLYCERIDE 76 10 - 149 mg/dL INTERFACE SYSTEM HDL 64(H) 40 - 59 mg/dL INTERFACE SYSTEM CHOL/HDL RATIO 2.8 2.0 - 5.0 INTER FACE SYSTEM LDL CALCULATED 103(H) <=99 mg/dL INTERFACE SYSTEM LIPID PANEL COMMENT See Below INTERFACE SYSTEM Comment: The adult ATP and pediatric NCEP classifications for lipids are available on the [facility] Intranet at: [email or web address] Select: Lab Policies and Procedures Select: Reference Ranges - Lipids 05/17/2006 10:5 9 AM CDT Narrative INTERFACE SYSTEM - 05/17/2006 3:27 PM CDT Ordered by an unspecified provider. us Historical Provider CHEMISTRY ORDERABLES Edited Performing Organization Address City/[facility] de Phone Number INTERFACE SYSTEM Refer to clinic/hospital department * (ABNORMAL) HEPATIC FUNCTION PANEL (05/17/2006 10:59 AM CDT) ALKALINE PHOSPHATASE 78 40 - 129 U/L INTERFACE SYSTEM AST 39(H) 12 - 38 U/L INTERFACE SYSTEM ALT 31 0 - 41 U/L INTERFACE SYSTEM TOTAL PROTEIN 8.1 6.3 - 8.6 g/dL INTERFACE SYSTEM ALBUMIN 4.5 3.4 - 4.8 g/dL INTERFACE SYSTEM BILIRUBIN TOTAL 0.4 0.2 - 1.0 mg/dL INTERFACE SYSTEM BILIRUBIN DIRECT 0.1 0.0 - 0.3 mg/dL INTERFACE SYSTEM 05/17/2006 10:5 9 AM CDT Narrative INTERFACE SYSTEM - 05/17/2006 3:27 PM CDT Ordered by an unspecified provider. us Historical Provider CHEMISTRY ORDERABLES Edited Performing Organization Address City/[facility] Co de Phone Number INTERFACE SYSTEM Refer to clinic/hospital department documented in this encounter Visit Diagnoses Diagnosis Other and unspecified hyperlipidemia- Primary documented in this encounter Care Teams Electronics Scale Tester Relationship Specialty Start Date End Date Joseph June MD [address] [facility] [address] [place] [address] PCP - General 12/19/06 documented as of this encounter
--- OUTSIDE RECORDS SUMMARY | 2024-12-19 13:53 | XMS_ITS | Encounter Summary ---
Author Organization [facility] Address [address] [place] [address] Care Team Providers Care Seed District Sales Manager Name Role Phone Joseph June MD Primary Care Provider [phone] Encounter Details Date Type Department Care Team (Late st Contact Info) Description 05/18/2005 Outpatient Historical [facility] Care [facility] [address] [address] Jason Muhammad, DO * Social History Tobacco Use Types Packs/Day Years Used Date Smoking Tobacco: Never Assessed Sex and Gender Information Value Date Recorded Sex Assigned at Not on file Legal Sex Male 4:31 AM LOAN REVIEWER Gender Identity Not on file Sexual Orientation Not on file documented as of this encounter Plan of Treatment Upcoming Encounters Date Type Department Care Team (Late st Contact Info) Description 04/03/2025 9:15 AM LOAN REVIEWER Office Visit [facility] [address] [address] Joseph June MD [address] [place] [address] documented as of this encounter Visit Diagnoses Not on filedocumented in this encounter Care Teams Seed District Sales Manager Relationship Specialty Start Date End Date Joseph June MD [address] [place] [address] PCP - General 12/19/06 documented as of this encounter
--- OUTSIDE RECORDS SUMMARY | 2024-12-19 13:53 | XMS_ITS | Encounter Summary ---
Author Organization [facility] Address [address] [place] [address] Care Team Providers Care Mainframe Systems Engineer Name Role Phone Joseph June MD Primary Care Provider [phone] Encounter Details Date Type Department Care Team (Late st Contact Info) Description 12/27/2001 Outpatient Historical [facility] [address] [address] Jason Muhammad, DO * Social History Tobacco Use Types Packs/Day Years Used Date Smoking Tobacco: Never Assessed Sex and Gender Information Value Date Recorded Sex Assigned at Not on file Legal Sex Male 4:31 AM EXTERMINATOR Gender Identity Not on file Sexual Orientation Not on file documented as of this encounter Plan of Treatment Upcoming Encounters Date Type Department Care Team (Late st Contact Info) Description 04/03/2025 9:15 AM EXTERMINATOR Office Visit [facility] [address] [address] Joseph June MD [address] [place] [address] documented as of this encounter Visit Diagnoses Not on filedocumented in this encounter Care Teams Mainframe Systems Engineer Relationship Specialty Start Date End Date Joseph June MD [address] [place] [address] PCP - General 12/19/06 documented as of this encounter
--- OUTSIDE RECORDS SUMMARY | 2024-12-19 13:53 | XMS_ITS | Encounter Summary ---
Author Organization [facility] Address [address] [place] [address] Care Team Providers Care Sharepoint Specialist Name Role Phone Joseph June MD Primary Care Provider [phone] Encounter Details Date Type Department Care Team (Late st Contact Info) Description 08/07/2002 Outpatient Historical [facility] Care [facility] [address] [address] Jason Muhammad, DO * Social History Tobacco Use Types Packs/Day Years Used Date Smoking Tobacco: Never Assessed Sex and Gender Information Value Date Recorded Sex Assigned at Not on file Legal Sex Male 4:31 AM JEWEL BEARING MAKER Gender Identity Not on file Sexual Orientation Not on file documented as of this encounter Plan of Treatment Upcoming Encounters Date Type Department Care Team (Late st Contact Info) Description 04/03/2025 9:15 AM JEWEL BEARING MAKER Office Visit [facility] [address] [phone] Joseph June MD [address] [place] [address] documented as of this encounter Visit Diagnoses Not on filedocumented in this encounter Care Teams Sharepoint Specialist Relationship Specialty Start Date End Date Joseph June MD [address] [place] [address] PCP - General 12/19/06 documented as of this encounter
--- OUTSIDE RECORDS SUMMARY | 2024-12-19 13:53 | XMS_ITS | Encounter Summary ---
Author Organization [facility] Address [address] [place] [address] Care Team Providers Care Repairer Wood Furniture Name Role Phone Joseph June MD Primary Care Provider [phone] Encounter Details Date Type Department Care Team (Late st Contact Info) Description 11/04/2004 Outpatient Historical [facility] Care [facility] [address] [address] Jason Muhammad, DO * Social History Tobacco Use Types Packs/Day Years Used Date Smoking Tobacco: Never Assessed Sex and Gender Information Value Date Recorded Sex Assigned at Not on file Legal Sex Male 4:31 AM CAN PILER Gender Identity Not on file Sexual Orientation Not on file documented as of this encounter Plan of Treatment Upcoming Encounters Date Type Department Care Team (Late st Contact Info) Description 04/03/2025 9:15 AM CAN PILER Office Visit [facility] [address] [address] Joseph June MD [address] [place] [address] documented as of this encounter Visit Diagnoses Not on filedocumented in this encounter Care Teams Repairer Wood Furniture Relationship Specialty Start Date End Date Joseph June MD [address] [place] [address] PCP - General 12/19/06 documented as of this encounter
--- OUTSIDE RECORDS SUMMARY | 2024-12-19 13:53 | XMS_ITS | Encounter Summary ---
Author Organization [facility] Address [address] [place] [address] Care Team Providers Care Structural Designer Name Role Phone Joseph June MD Primary Care Provider [phone] Encounter Details Date Type Department Care Team (Late st Contact Info) Description 06/11/2002 Outpatient Historical [facility] Care [facility] [address] [address] Jason Muhammad, DO * Social History Tobacco Use Types Packs/Day Years Used Date Smoking Tobacco: Never Assessed Sex and Gender Information Value Date Recorded Sex Assigned at Not on file Legal Sex Male 4:31 AM FREEZER MACHINE OPERATOR Gender Identity Not on file Sexual Orientation Not on file documented as of this encounter Plan of Treatment Upcoming Encounters Date Type Department Care Team (Late st Contact Info) Description 04/03/2025 9:15 AM FREEZER MACHINE OPERATOR Office Visit [facility] [address] [address] Joseph June MD [address] [place] [address] documented as of this encounter Visit Diagnoses Not on filedocumented in this encounter Care Teams Structural Designer Relationship Specialty Start Date End Date Joseph June MD [address] [place] [address] PCP - General 12/19/06 documented as of this encounter
--- OUTSIDE RECORDS SUMMARY | 2024-12-19 13:53 | XMS_ITS | Encounter Summary ---
Author Organization [facility] Address [address] [place] [address] Care Team Providers Care Supervisor Finishing Name Role Phone Joseph June MD Primary Care Provider [phone] Encounter Details Date Type Department Care Team (Late st Contact Info) Description 03/29/2004 Outpatient Historical [facility] Care [facility] [address] [address] Jason Muhammad, DO * Social History Tobacco Use Types Packs/Day Years Used Date Smoking Tobacco: Never Assessed Sex and Gender Information Value Date Recorded Sex Assigned at Not on file Legal Sex Male 4:31 AM FASHION INTERN Gender Identity Not on file Sexual Orientation Not on file documented as of this encounter Plan of Treatment Upcoming Encounters Date Type Department Care Team (Late st Contact Info) Description 04/03/2025 9:15 AM FASHION INTERN Office Visit [facility] [address] [address] Joseph June MD [address] [place] [address] documented as of this encounter Visit Diagnoses Not on filedocumented in this encounter Care Teams Supervisor Finishing Relationship Specialty Start Date End Date Joseph June MD [address] [place] [address] PCP - General 12/19/06 documented as of this encounter
--- OUTSIDE RECORDS SUMMARY | 2024-12-19 13:53 | XMS_ITS | Encounter Summary ---
Author Organization [facility] Address [address] [place] [address] Care Team Providers Care Vulcanizing Machine Operator Name Role Phone Joseph June MD Primary Care Provider [phone] Encounter Details Date Type Department Care Team (Late st Contact Info) Description 05/17/2006 Outpatient Historical [facility] Care [facility] [address] [address] Jason Muhammad, DO * Social History Tobacco Use Types Packs/Day Years Used Date Smoking Tobacco: Never Assessed Sex and Gender Information Value Date Recorded Sex Assigned at Not on file Legal Sex Male 4:31 AM MATERIALS AND PROCESSES MANAGER Gender Identity Not on file Sexual Orientation Not on file documented as of this encounter Plan of Treatment Upcoming Encounters Date Type Department Care Team (Late st Contact Info) Description 04/03/2025 9:15 AM MATERIALS AND PROCESSES MANAGER Office Visit [facility] [address] [address] Joseph June MD [address] [place] [address] documented as of this encounter Visit Diagnoses Not on filedocumented in this encounter Care Teams Vulcanizing Machine Operator Relationship Specialty Start Date End Date Joseph June MD [address] [place] [address] PCP - General 12/19/06 documented as of this encounter
--- OUTSIDE RECORDS SUMMARY | 2024-12-19 13:53 | XMS_ITS | Encounter Summary ---
Author Organization [facility] Address [address] [place] [address] Care Team Providers Care Board Mill Supervisor Name Role Phone Joseph June MD Primary Care Provider [phone] Encounter Details Date Type Department Care Team (Late st Contact Info) Description 04/22/2004 Outpatient Historical [facility] [address] [address] Jason Muhammad, DO * Social History Tobacco Use Types Packs/Day Years Used Date Smoking Tobacco: Never Assessed Sex and Gender Information Value Date Recorded Sex Assigned at Not on file Legal Sex Male 4:31 AM CARTON AND CAN SUPPLY SUPERVISOR Gender Identity Not on file Sexual Orientation Not on file documented as of this encounter Plan of Treatment Upcoming Encounters Date Type Department Care Team (Late st Contact Info) Description 04/03/2025 9:15 AM CARTON AND CAN SUPPLY SUPERVISOR Office Visit [facility] [address] [address] Joseph June MD [address] [place] [address] documented as of this encounter Visit Diagnoses Not on filedocumented in this encounter Care Teams Board Mill Supervisor Relationship Specialty Start Date End Date Joseph June MD [address] [place] [address] PCP - General 12/19/06 documented as of this encounter
--- OUTSIDE RECORDS SUMMARY | 2024-12-19 13:53 | XMS_ITS | Clinical Summary ---
Author Organization [facility] Care Team Providers Care Subsystems Engineer Name Role Phone Unavailable Primary Care Provider Unavailabl e Immunizations Immunization Administration Dates Next Due Covid-19, Mrna, Lnp-s, PF, 1 00 mcg/0.5 mL Dose (Moderna) 04/20/2020,03/23/2020 Social History Tobacco Use Types Packs/Day Years Used Date Smoking Tobacco: Never Assessed Sex and Gender Information Value Date Recorded Sex Assigned at Not on file Legal Sex Male 9:47 AM CDT Gender Identity Not on file Sexual Orientation Not on file Plan of Treatment Health Maintenance Due Date Last Done Comments Hepatitis C Virus (HCV) Screening 1960 TdaP Immunization 1960 Cologuard 01/26/2004 Colonoscopy 01/26/2004 Colorectal Cancer Screening 01/26/2004 Immunochemical Fecal Occult Blood 01/26/2004 Pneumococcal Immunization (5 0+ years) (1 of 1 - PCV) 2009 Zoster Immunization (1 of 2) 2009 Influenza Immunization (#1) 2024 SARS-COV-2 Immunization ( season) 2024 01/04/2021, 04/20/2020, 03/23/2020 Respiratory Syncytial Virus (RSV) Immunization (Adult) (1 - 1-dose 75+ series) 2034 Hepatitis B Immunization Aged Out No longer eligible based on patient's age to complete this topic Human Papillomavirus (HPV) Immunization Aged Out No longer eligible b ased on patient's age to complete this topic Meningococcal Immunization (ACWY) Aged Out No longer eligible b ased on patient's age to complete this topic Rotavirus Immunization Aged Out No lo nger eligible based on patient's age to complete this topic
--- OUTSIDE RECORDS SUMMARY | 2024-12-19 13:53 | XMS_ITS | Encounter Summary ---
Author Organization [facility] Address [address] [place] [address] Care Team Providers Care Director Critical Care Name Role Phone Joseph June MD Primary Care Provider [phone] Encounter Details Date Type Department Care Team (Late st Contact Info) Description 01/10/2002 Outpatient Historical [facility] Care [facility] [address] [address] Jason Muhammad, DO * Social History Tobacco Use Types Packs/Day Years Used Date Smoking Tobacco: Never Assessed Sex and Gender Information Value Date Recorded Sex Assigned at Not on file Legal Sex Male 4:31 AM PHOTO CHECKER AND ASSEMBLER Gender Identity Not on file Sexual Orientation Not on file documented as of this encounter Plan of Treatment Upcoming Encounters Date Type Department Care Team (Late st Contact Info) Description 04/03/2025 9:15 AM PHOTO CHECKER AND ASSEMBLER Office Visit [facility] [address] [address] Joseph June MD [address] [place] [address] documented as of this encounter Visit Diagnoses Not on filedocumented in this encounter Care Teams Director Critical Care Relationship Specialty Start Date End Date Joseph June MD [address] [place] [address] PCP - General 12/19/06 documented as of this encounter
--- OUTSIDE RECORDS SUMMARY | 2024-12-19 13:53 | XMS_ITS | Encounter Summary ---
Author Organization [facility] Address [address] [place] [address] Care Team Providers Care Dairy Products Maker Name Role Phone Joseph June MD Primary Care Provider [phone] Encounter Details Date Type Department Care Team (Late st Contact Info) Description 08/05/2003 Outpatient Historical [facility] Care [facility] [address] [address] Jason Muhammad, DO * Social History Tobacco Use Types Packs/Day Years Used Date Smoking Tobacco: Never Assessed Sex and Gender Information Value Date Recorded Sex Assigned at Not on file Legal Sex Male 4:31 AM CONTENT DEVELOPMENT SPECIALIST Gender Identity Not on file Sexual Orientation Not on file documented as of this encounter Plan of Treatment Upcoming Encounters Date Type Department Care Team (Late st Contact Info) Description 04/03/2025 9:15 AM CONTENT DEVELOPMENT SPECIALIST Office Visit [facility] [address] [address] Joseph June MD [address] [place] [address] documented as of this encounter Visit Diagnoses Not on filedocumented in this encounter Care Teams Dairy Products Maker Relationship Specialty Start Date End Date Joseph June MD [address] [place] [address] PCP - General 12/19/06 documented as of this encounter
--- OUTSIDE RECORDS SUMMARY | 2024-12-19 13:53 | XMS_ITS | Encounter Summary ---
Author Organization [facility] Address [address] [place] [address] Care Team Providers Care Legal Biller Name Role Phone Joseph June MD Primary Care Provider [phone] Encounter Details Date Type Department Care Team (Late st Contact Info) Description 12/13/2001 Outpatient Historical [facility] Care [facility] [address] [address] Jason Muhammad, DO * Social History Tobacco Use Types Packs/Day Years Used Date Smoking Tobacco: Never Assessed Sex and Gender Information Value Date Recorded Sex Assigned at Not on file Legal Sex Male 4:31 AM MANAGER WIRELESS Gender Identity Not on file Sexual Orientation Not on file documented as of this encounter Plan of Treatment Upcoming Encounters Date Type Department Care Team (Late st Contact Info) Description 04/03/2025 9:15 AM MANAGER WIRELESS Office Visit [facility] [address] [address] Joseph June MD [address] [place] [address] documented as of this encounter Visit Diagnoses Not on filedocumented in this encounter Care Teams Legal Biller Relationship Specialty Start Date End Date Joseph June MD [address] [place] [address] PCP - General 12/19/06 documented as of this encounter
--- OUTSIDE RECORDS SUMMARY | 2024-12-19 13:53 | XMS_ITS | Encounter Summary ---
Author Organization [facility] Address [address] [place] [address] Care Team Providers Care Backwinder Name Role Phone Joseph June MD Primary Care Provider [phone] Encounter Details Date Type Department Care Team (Late st Contact Info) Description 08/28/2007 Outpatient Historical [facility] Joseph June MD [address] [place] [phone] Social History Tobacco Use Types Packs/Day Years Used Date Smoking Tobacco: Never Assessed Sex and Gender Information Value Date Recorded Sex Assigned at Not on file Legal Sex Male 4:31 AM KITCHEN HELP HANDYMAN Gender Identity Not on file Sexual Orientation Not on file documented as of this encounter Plan of Treatment Upcoming Encounters Date Type Department Care Team (Late st Contact Info) Description 04/03/2025 9:15 AM KITCHEN HELP HANDYMAN Office Visit [facility] [place] [phone] Joseph June MD [address] [place] [phone] documented as of this encounter Procedures Procedure Name Priority Date/Time Associated Diagnosis Comments US TESTES W SCROTAL DOPPLER LTD Routine 08/28/2007 12:04 PM CDT documented in this encounter Results * US TESTES W SCROTAL DOPPLER LTD (08/28/2007 12:04 PM CDT) Anatomical Region Laterality Modality Pelvis Other 08/28/2007 12:0 4 PM CDT Narrative 08/29/2007 12:13 PM CDT [facility] [address] [place], [place] [address] Admit Date: 08/28/2007 [place] Sex: M Admit Prov: JOSEPH JUNE Date: 1960 Primary Care Prov: JOSEPH JUNE CMRN: [id number] Room: [facility] SSN: [id number] IMAGING SERVICES Ordering Prov: N/A Accession Number: [id number] Interpretation ULTRASOUND OF THE TESTES WITH SCROTAL DOPPLER, LIMITED, 08/28/2007 Clinical History: Pain and lump in right side of scrotum. Findings: Sagittal and transverse real-time examination reveals a large epididymal cyst on the right measuring 3.1 x 1.6 x 2.9 cm in size. The right testicle appears sonographically normal, measuring 4.3 x 2.5 x 2.9 cm in diameter. The left testicle and left epididymis appear normal. The left testicle measures 4.2 x 2.1 x 2.9 cm in size. There are no testicular masses on either side. There is normal color-flow signal and duplex Doppler signal from both testes. Conclusion: A 3.1-cm-sized right epididymal cyst. Sonographically normal testes. . Dictated by: GEROGIANA RUTH 08/29/2007 09:00 Electronically signed by: GEORGIANA RUTH 08/29/2007 12:12 Transcribed: 08/29/2007 09:07 DKT Procedure Note Provider, Historical - 08/29/2007 [address] [place], [place] [address] Admit Date: 08/28/2007 [place]KE Sex: M Admit Prov: JOSEPH JUNE Date:1960 Primary Care Prov: JOSEPH JUNE CMRN: [id number] Room: [facility] SSN: [id number] IMAGING SERVICES Ordering Prov: N/A Interpretation ULTRASOUND OF THE TESTES WITH SCROTAL DOPPLER, LIMITED, 08/28/2007 Clinical History: Pain and lump in right side of scrotum. Findings: Sagittal and transverse real-time examination reveals alarge epididymal cyst on the right measuring 3.1 x 1.6 x 2.9 cm in size.The right testicle appears sonographically normal, measuring 4.3 x 2.5 x2.9 cm in diameter. The left testicle and left epididymis appear normal. Theleft testicle measures 4.2 x 2.1 x 2.9 cm in size. There are notesticular masses on either side. There is normal color-flow signal and duplexDoppler signal from both testes. Conclusion: A 3.1-cm-sized right epididymal cyst. Sonographically normal testes. . Dictated by: GEORGIANA RUTH 08/29/2007 09:00 Electronically signed by: GEORGIANA RUTH 08/29/2007 12:12 Transcribed: 08/29/2007 09:07 DKT Joseph June MD ORDERABLES Final Result documented in this encounter Visit Diagnoses Not on filedocumented in this encounter Care Teams Backwinder Relationship Specialty Start Date End Date Joseph June MD [address] [place] [address] PCP - General 12/19/06 documented as of this encounter
--- NOTE | 2024-12-19 14:05 | ECG_ITS ---
Test Date: 2024-12-19 14:13:26 Measurements Intervals [place] Rate: 38 P: 0 NV: 0 QRS: 12 QRSD: 155 T: -21 QT: 453 QTc: 362 Interpretive Statements SINUS COMPLEXES ALTERNATING WITH JUNCTIONAL COMPLEXES RIGHT BUNDLE BRANCH BLOCK ABNORMAL ECG Compared to ECG 12/19/2024 11:35:19 NO SIGNIFICANT CHANGE Electronically Signed On 12-19-2024 15:30:46 CDT by Redd Agustin D.O.
[2024-12-19] MEDS: KETOROLAC 15 MG/ML VIAL (*BKC) IV PUSH (14:22)
[2024-12-19 14:54] LABS: Troponin I < 0.012 ng/mL (0.000-0.034)
--- NOTE | 2024-12-19 15:28 | P.HP_ITS ---
H&P: HPI History of Present Illness Date/Time: 12/19/24 15:28 Chief Complaint: Chest pain Narrative: 64-year-old male history of diabetes, hyperlipidemia, on metoprolol presents the hospital with left-sided chest numbness. He states that it is not pain or pressure. First occurred when he was doing physical activity yesterday and has been continuous since then. He states that because of his high cholesterol he became concerned and decided to present to the hospital to be checked out. Patient states that he thinks the pulled muscle. Patient has no other complaints he denies nausea vomiting fever chills issues with bowel or bladder. Patient is bradycardic on the heart rate monitor of 44, he states that he feels just fine. He states that he does not check his heart rate of home. But when he goes into his doctor's office it is always around 60. Lab work shows hemoglobin 12.7, carbon dioxide 31, glucose of 177, troponins x2 negative. Chest x-ray with no acute process. EKG shows bradycardia with right bundle branch block rate of 41. Review of Systems Review of Systems: 12 systems were reviewed and are negativ e except for as per HPI. [facility] Past Medical History Medical History (Updated 12/19/24 @ 18:17 by Thomas Ladd MD) Hyperlipidemia Diabetes Family History Family History Mother Family history of malignant neoplasm Father Family history of malignant neoplasm Social History Social History Smoking status: Never smoker Alcohol intake: never Substance use: never Lack of Transportation: No Lack of Food: Never True Current Housing: I Have Housing Concerned About Future Housing: No Difficulty Paying Gas/Electric Bills: No Difficulty Paying for Meds: No Currently Unemployed: No Education: Decline to Answer Difficulty w/ Childcare or Family Care: No Spiritual care concerns: No Meds Home Medications and Allergies Home Medications ?Medication ?Instructions ?Recorded ?Confirmed ?Type metformin 500 mg tablet 500 mg PO BID 09/15/2412/19 History metoprolol succinate 100 mg 100 mg PO DAILY 09/15/24 1 History tablet,extended release 24 hr olmesartan 20 mg-amlodipine 5 1 tablet PO DAILY 12/19/24 History mg-hydrochlorothiazide 12.5 mg tablet rosuvastatin 10 mg tablet 10 mg PO DAILY 09/15/2412/03 History valacyclovir 1 gram tablet 1,000 mg PO PRN PRN outbrea k 09/15/24 12/19/24 History Allergies Allergy/AdvReac Type Severity Reaction Status Date / Time No Known Allergies Allergy Unknown Verified 12/19/24 17:17 Vital Signs Vital Signs - 24 hr 12/19/24 11:40 12/19/24 13:17 Temperature 98 F Pulse Rate 45 L Respiratory Rate 17 Blood Pressure 149/75 H Pulse Oximetry 99 Oxygen Delivery Room Air Room Air Exam Narrative: General: well appearing, appears stated age. HEENT: normocephalic, atraumatic. Mucous membranes moist. EOMI, PERRLA, bilateral sclera anicteric, no conjunctival injection. Neck supple without JVD, lymphadenopathy, or bruit. Respiratory: clear to ascultation bilaterally. No rales/rhonic/wheezes. Cardiovascular: Regular rate and rhythm, normal S1-S2 upon ascultation. No murmurs, rubs, or clicks. PMI is nondisplaced, capillary refill less than 3 second. Abdomen: Soft, round, no pulsatile masses, nondistended and nontender. No rebound, no guarding. No CVA tenderness, no hepatosplenomegaly. Bowel sounds present to all four quadrants. No high pitch or tinkling sounds, resonant to percussion. Extremities: No cyanosis, clubbing, or edema present. Pulses are palpable 2/2. Active ROM to all four extremities. Neuro: Alert and orientated x 4. PERRLA. Cranial nerves 2-12 intact without focal deficit. Skin: Warm, dry, and intact, without rash, erythema, or lesion. Psych: pleasant, cooperative, normal speech, normal affect, no hallucinations, no dysarthia H&P: Results Labs Labs: Short CBC 12/19/24 Range/Units 11:46 WBC 5.0 (4.5-10.0) K/mm3 Hgb 12.7 L (14.0-18.0) g/dL Hct 40.7 L (42.0-52.0) % Plt Count 251 (150-375) k/mm3 [facility] 12/19/24 11:46 Sodium 138 Potassium 3.9 Chloride 101 Carbon Dioxide 31 H BUN 13 Creatinine 0.93 Glucose 177 H Calcium 9.2 Cardiac Enzymes 12/19/24 12/19/24 Range/Units 11:46 14:24 Troponin I < 0.012 < 0.012 (0.000-0.034) ng/mL Liver Function 12/19/24 Range/Units 11:46 Total Bilirubin 0.4 (0.2-1.3) mg/dL AST 34 (17-59) U/L ALT 29 (6-50) U/L Alkaline Phosphatase 92 (38-126) U/L Albumin 4.5 (3.5-5.1) g/dL Assessment and Plan Assessment and plan (1) Chest discomfort: Code(s): R07.89 - Other chest pain Status: Acute Assessment and Plan: Chest numbness, denies chest pain or pressure Cardiology consulted Trend troponins Stress test Echo with Doppler (2) Bradycardia: Code(s): R00.1 - Bradycardia, unspecified Status: Acute Assessment and Plan: Cardiology consulted Hold metoprolol Telemetry monitoring (3) Anemia: Code(s): D64.9 - Anemia, unspecified Status: Acute Assessment and Plan: Anemia workup pending No signs of acute bleeding (4) Diabetes: Code(s): E11.9 - Type 2 diabetes mellitus without complications Status: Acute Assessment and Plan: Hold metformin while in hospital Diabetic diet Accu-Cheks selina.cMarry HS SSI (5) Hyperlipidemia: Code(s): E78.5 - Hyperlipidemia, unspecified Status: Acute Assessment and Plan: Continue statin Quality VTE Prophylaxis VTE prophylaxis: mechanical ordered Hospitalist MIPS Advance Care Plan I have confirmed that the patient's Advanced Care Plan is present, code status is documented, or surrogate decision maker is listed in patient medical record.: Yes Medication Reconciliation I have utilized all available resources to obtain, update and review the patients current medications (includes all prescriptions, OTC, herbals, cannabis, and nutritional supplements).: Yes
--- NOTE | 2024-12-19 16:33 | ADMGEN ---
This patient, Curt Luke, was admitted to IMU Room 211-01 @ 1633. Patient/family oriented to hospital policies and general routines including ID bracelet, bed and alarms, visiting hours, pain management, procedures, bathroom and other care routines, personal items, smoking policy, room service/diet, and visiting hours. Information on how to activate the Rapid Response Team has been discussed. Patient/Family are encouraged to report perceived risks to care and to ask questions if they do not understand what they are told or what they should do.
[2024-12-19 19:08] LABS: Troponin I < 0.012 ng/mL (0.000-0.034)
--- NOTE | 2024-12-19 21:37 | PHAR ---
home meds verified olmesartan/amlodipine/hctz 20/5/12.5mg one daily rosuvastatin 10mg one daily metoprolol succinate 100mg xl one daily metformin 500mg 1 bid wm
[2024-12-20] VITALS (15 sets, daily range): BP systolic 137–169; BP diastolic 53–74; PULSE 40–69; RESP 15–20; TEMP 36.6–36.9; O2SAT 94–100
[2024-12-20 04:54] LABS: Hematocrit 35.4 % (42.0-52.0); Hemoglobin 11.2 g/dL (14.0-18.0); Immature Granulocyte Percent A 0.2 % (0-0.5); Lymphocytes Absolute Auto 2.28 K/mm3 (0.9-3.2); Mean Corpuscular HGB Conc 31.6 g/dl (32-36); Mean Corpuscular Hemoglobin 26.1 pg (26-34); Mean Corpuscular Volume 82.5 fl (80-100); Nucleated Red Blood Cells Absolute Auto 0.000 K/mm3 (0.0-0.012); Nucleated Red Blood Cells Perc 0.0 % (0.0-0.2); Platelet Count Result 229 k/mm3 (150-375); Red Blood Count 4.29 M/mm3 (4.6-6.20); White Blood Count 5.7 K/mm3 (4.5-10.0)
[2024-12-20 05:02] LABS: Iron 45 ug/dL (49-181)
[2024-12-20 05:11] LABS: Percent Iron Saturation 18 % (20-50)
[2024-12-20 05:18] LABS: Anion Gap 5 mmol/L (4-12); Blood Urea Nitrogen 18 mg/dL (9-20); Calcium 8.8 mg/dL (8.4-10.2); Carbon Dioxide 30 mmol/L (22-30); Chloride 103 mmol/L (98-107); Estimated CRCL calculation 79 ml/min; Estimated Glomerular Filt Rate > 60; Glucose 123 mg/dL (65-110); Potassium 3.8 mmol/L (3.4-5.0); Sodium 138 mmol/L (137-145)
[2024-12-20 05:34] LABS: Thyroid Stimulating Hormone Reflex 2.510 uIU/mL (0.465-4.68)
[2024-12-20 05:38] LABS: Ferritin 91.50 ng/mL (11.1-264)
[2024-12-20 06:36] LABS: Vitamin B12 > 1000.0 pg/mL (239-931)
--- NOTE | 2024-12-20 08:26 | P.PNIM_ITS ---
Progress Note: A&P Assessment and Plan (1) Chest discomfort: Code(s): R07.89 - Other chest pain Status: Acute Assessment and Plan: * Monitor vital signs, I&Os, chest pain, shortness of breath and patient is a fa ll risk * Monitor PTT, serial troponin, Serum electrolytes, and cbc * Keep serum potassium >4 and keep magnesium >2 * Chest numbness, denies chest pain or pressure * Cardiology consulted * Echo with Doppler * Discontinue Metoprolol, monitor on telemetry * If continues to be bradycardic, consider ischemic evaluation * Trend troponin (2) Bradycardia: Code(s): R00.1 - Bradycardia, unspecified Status: Acute Assessment and Plan: * Cardiology consulted * Hold metoprolol * Telemetry monitoring (3) Anemia: Code(s): D64.9 - Anemia, unspecified Status: Acute Assessment and Plan: * Anemia workup: Iron 45, TIBC 245, % Saturation 18, ferritn wnl * Consistent with iron deficiency anemia * No signs of acute bleeding * Start Ferrous sulfate 325mg daily (4) Diabetes: Code(s): E11.9 - Type 2 diabetes mellitus without complications Status: Acute Assessment and Plan: * Hold metformin while in hospital * Diabetic diet * Accu-Cheks a.c. HS * SSI (5) Hyperlipidemia: Code(s): E78.5 - Hyperlipidemia, unspecified Status: Acute Assessment and Plan: * Continue statin Subjective Date/time seen: 12/20/24 08:26 Interval history: 64-year-old male history of diabetes, hyperlipidemia, on metoprolol presents the hospital with left-sided chest numbness. He states that it is not pain or pressure. First occurred when he was doing physical activity yesterday and has been continuous since then. 12/20/2024 Patient sitting comfortably in bed at time of exam. Denies any chest pain, shortness of breath, n/v, abd pain at this time. Heart rate remains in low 50s. Cardiology consulted - discontinued Metoprolol, continue to monitor on telemetry. Obtain echocardiogram. If remains katty - consider ischemic eval. Pt otherwise stable at this time. Review of Systems Review of Systems: 12 systems were reviewed and are negativ e except for as per HPI. Exam Narrative: General: well appearing, appears stated age. HEENT: normocephalic, atraumatic. Mucous membranes moist. EOMI, PERRLA, bilateral sclera anicteric, no conjunctival injection. Neck supple without JVD, lymphadenopathy, or bruit. Respiratory: clear to auscultation bilaterally. No rales/rhonchi/wheezes. Cardiovascular: Bradycardic, regular rhythm, normal S1-S2 upon auscultation. No murmurs, rubs, or clicks. Abdomen: Soft, round, no pulsatile masses, nondistended and nontender. No rebound, no guarding. No CVA tenderness, no hepatosplenomegaly. Bowel sounds present to all four quadrants. No high pitch or tinkling sounds, resonant to percussion. Extremities: No cyanosis, clubbing, or edema present. Pulses are palpable 2/2. Active ROM to all four extremities. Neuro: Alert and orientated x 4. PERRLA. Cranial nerves 2-12 intact without focal deficit. Skin: Warm, dry, and intact, without rash, erythema, or lesion. Psych: pleasant, cooperative, normal speech, normal affect Objective Data Vital Signs Vital Signs: Vital Signs - 24 hr 12/19/24 11:40 12/19/24 13:16 12/19/24 13:17 Temperature 98 F Pulse Rate 45 L 41 L Respiratory Rate 17 13 Blood Pressure 149/75 H Pulse Oximetry 99 100 Oxygen Delivery Room Air Room Air 12/19/24 13:22 12/19/24 13:30 12/19/24 13:33 Temperature Pulse Rate 38 L 39 L 39 L Respiratory Rate 14 15 19 Blood Pressure 141/78 H 128/70 Pulse Oximetry 99 99 100 Oxygen Delivery 12/19/24 13:45 12/19/24 14:27 12/19/24 14:32 Temperature Pulse Rate 42 L 42 L 41 L Respiratory Rate 16 14 15 Blood Pressure Pulse Oximetry 99 99 100 Oxygen Delivery 12/19/24 14:45 12/19/24 15:00 12/19/24 15:01 Temperature Pulse Rate 45 L 38 L 38 L Respiratory Rate 17 12 12 Blood Pressure 144/73 H Pulse Oximetry 99 98 Oxygen Delivery 12/19/24 15:24 12/19/24 15:30 12/19/24 15:33 Temperature Pulse Rate 46 L 40 L 44 L Respiratory Rate 14 17 15 Blood Pressure 134/81 Pulse Oximetry 99 100 99 Oxygen Delivery 12/19/24 15:45 12/19/24 15:47 12/19/24 16:07 Temperature Pulse Rate 54 L 38 L 39 L Respiratory Rate 17 13 14 Blood Pressure 140/80 Pulse Oximetry 100 100 99 Oxygen Delivery 12/19/24 16:15 12/19/24 17:36 12/19/24 18:00 Temperature Pulse Rate 38 L 47 L Respiratory Rate 14 Blood Pressure Pulse Oximetry 97 97 Oxygen Delivery Room Air 12/19/24 19:50 12/19/24 20:00 12/19/24 22:00 Temperature 98.2 F Pulse Rate 50 L 55 L 57 L Respiratory Rate 15 Blood Pressure 136/64 Pulse Oximetry 98 Oxygen Delivery 12/20/24 00:00 12/20/24 00:00 12/20/24 02:00 Temperature 98.2 F Pulse Rate 42 L 43 L 61 Respiratory Rate 16 Blood Pressure 143/68 H Pulse Oximetry 95 Oxygen Delivery 12/20/24 04:00 12/20/24 04:38 12/20/24 06:00 Temperature 98.1 F Pulse Rate 46 L 52 L 55 L Respiratory Rate 15 Blood Pressure 143/61 H Pulse Oximetry 94 Oxygen Delivery Intake/Output Intake/Output: Intake & Output 12/17/24 12/18/24 12/19/24 12/20/24 23:59 23:59 23:59 23:59 Intake Total 360 1001 Balance 360 1001 Meds/Results Medications: Active Medications Generic Name Dose Route Start Last Admin Trade Name Freq PRN Reason Stop Dose Admin Dextrose 12.5 gm 12/19/24 15:36 Dextrose 50% 25 Gm/50 Ml Syringe IV PUSH PRN PRN Hypoglycemia Protocol Docusate Sodium 100 mg 12/19/24 15:36 Docusate Sodium 100 Mg Capsule PO BID PRN Constipation Glucagon 1 mg 12/19/24 15:36 Glucagon For Inj 1 Mg Vial IM PRN PRN Hypoglycemia Protocol Glucose 15 gm 12/19/24 15:36 Glucose Oral Gel 15 Gm Of Glucse In 37.5 Gm Tube PO PRN PRN Hypoglycemia Protocol Dextrose 1,000 mls @ 100 mls/hr 12/19/24 15:36 Dextrose 5% 1,000 Ml IVPB PRN PRN Hypoglycemia Protocol Insulin Aspart 2 - 5 units 12/19/24 17:00 12/20/24 07:51 Insulin Aspart (*Bkc) 100 Units/Ml SUB-Q Not Given TIDWM REGINALD Protocol Home Med ( 1 tablet 12/20/24 09:00 Olmesartan- PO 01/19/25 08:59 Amlodipine-Hctz 20-5 DAILY REGINALD -12.5 Mg Tablet) Home Med 1 each 12/20/24 09:00 Rosuvastatin 10 Mg BY MOUTH 01/19/25 08:59 Tablet DAILY REGINALD Perflutren Lipid Microsphere 0 ml 12/19/24 21:19 Perflutren Lipid Microspheres 1.5 Ml Vial Diluted To 10 Ml Total Volume IV PUSH 12/22/24 21:20 ONCE PRN adequate visualization Protocol Radiology Results: ITS Impressions Chest X-Ray 12/19/24 12:31 Impression: No acute cardiopulmonary abnormality. Labs Labs: Laboratory Results - last 24 hr 12/19/24 12/19/24 12/19/24 11:46 14:24 17:05 WBC 5.0 RBC 4.90 Hgb 12.7 L Hct 40.7 L MCV 83.1 MCH 25.9 L MCHC 31.2 L RDW 14.6 H Plt Count 251 MPV 10.5 H Immature Gran % (Auto) 0.2 Neut % (Auto) 47.1 Lymph % (Auto) 36.3 [place] % (Auto) 7.2 Eos % (Auto) 8.4 H Baso % (Auto) 0.8 Lymph # (Auto) 1.82 [place] # (Auto) 0.4 Eos # (Auto) 0.4 H Baso # (Auto) 0.0 Abs Immat Gran (auto) 0.01 Absolute Neuts (auto) 2.4 Absolute Nucleated RBC 0.000 Nucleated RBC % 0.0 PT 12.5 INR 0.9 APTT 25.6 D-Dimer 0.39 Sodium 138 Potassium 3.9 Chloride 101 Carbon Dioxide 31 H Anion Gap 6 BUN 13 Creatinine 0.93 Estim Creat Clear Calc 76 Estimated GFR > 60 Glucose 177 H POC Capillary Glucose 130 H Calcium 9.2 Iron TIBC % Saturation Ferritin Total Bilirubin 0.4 AST 34 ALT 29 Alkaline Phosphatase 92 Troponin I < 0.012 < 0.012 Total Protein 8.2 Albumin 4.5 Lipase 57 Vitamin B12 Folate TSH (Reflex) 12/19/24 12/19/24 12/20/24 17:51 20:51 04:31 WBC 5.7 RBC 4.29 L Hgb 11.2 L Hct 35.4 L MCV 82.5 MCH 26.1 MCHC 31.6 L RDW 14.6 H Plt Count 229 MPV 10.2 Immature Gran % (Auto) 0.2 Neut % (Auto) 44.8 L Lymph % (Auto) 39.9 [place] % (Auto) 7.4 Eos % (Auto) 7.2 H Baso % (Auto) 0.5 Lymph # (Auto) 2.28 [place] # (Auto) 0.4 Eos # (Auto) 0.4 H Baso # (Auto) 0.0 Abs Immat Gran (auto) 0.01 Absolute Neuts (auto) 2.6 Absolute Nucleated RBC 0.000 Nucleated RBC % 0.0 PT INR APTT D-Dimer Sodium Potassium Chloride Carbon Dioxide Anion Gap BUN Creatinine Estim Creat Clear Calc Estimated GFR Glucose POC Capillary Glucose 164 H Calcium Iron 45 L TIBC 245 L % Saturation 18 L Ferritin 91.50 Total Bilirubin AST ALT Alkaline Phosphatase Troponin I < 0.012 Total Protein Albumin Lipase Vitamin B12 Folate TSH (Reflex) 2.510 12/20/24 12/20/24 04:32 07:37 WBC RBC Hgb Hct MCV MCH MCHC RDW Plt Count MPV Immature Gran % (Auto) Neut % (Auto) Lymph % (Auto) [place] % (Auto) Eos % (Auto) Baso % (Auto) Lymph # (Auto) [place] # (Auto) Eos # (Auto) Baso # (Auto) Abs Immat Gran (auto) Absolute Neuts (auto) Absolute Nucleated RBC Nucleated RBC % PT INR APTT D-Dimer Sodium 138 Potassium 3.8 Chloride 103 Carbon Dioxide 30 Anion Gap 5 BUN 18 Creatinine 0.90 Estim Creat Clear Calc 79 Estimated GFR > 60 Glucose 123 H POC Capillary Glucose 138 H Calcium 8.8 Iron TIBC % Saturation Ferritin Total Bilirubin AST ALT Alkaline Phosphatase Troponin I Total Protein Albumin Lipase Vitamin B12 > 1000.0 H Folate 6.0 TSH (Reflex) Quality VTE Prophylaxis VTE prophylaxis: mechanical ordered
--- NOTE | 2024-12-20 09:56 | PM.CNCAR ---
Assessment and Plan Assessment and plan (1) Chest discomfort: Code(s): R07.89 - Other chest pain Status: Acute Assessment and Plan: 64-year-old male with hypertension, type 2 diabetes mellitus, dyslipidemia. Patient presented to the hospital with complaints of left-sided chest discomfort which he described as numbness like sensation in the chest. 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 His EKG at presentation showed sinus bradycardia with transition to junctional escape rhythm; subsequent EKG showed sinus bradycardia with intermittent junctional escape beats. On telemetry, he has been in sinus bradycardia with heart rates in 30s to 50s with underlying RBBB. Patient takes metoprolol succinate 100 mg p.o. daily at home. TSH is within normal limits. Serial troponins negative. -discontinue metoprolol succinate. Avoid AV onelia blocking agents for now. Continue to monitor on telemetry for improvement in heart rate. -echo with Doppler to check LV function and rule out structural heart disease. -if patient remains bradycardic after washout of beta-jose a and if he still has symptoms of chest discomfort, then will consider ischemic evaluation. May add low-dose aspirin for now. (2) Bradycardia: Code(s): R00.1 - Bradycardia, unspecified Status: Acute Assessment and Plan: Spoke with patient about bradycardia which could be secondary to metoprolol succinate. Advised patient to stay in the hospital for further observation and any additional testing that may be necessary. He verbalized understanding. (3) Hypertension associated with type 2 diabetes mellitus: Code(s): E11.59 - Type 2 diabetes mellitus with other circulatory complications; I15.2 - Hypertension secondary to endocrine disorders Status: Acute Assessment and Plan: Avoid AV onelia blocking agents for now. Metoprolol succinate has been discontinued. Continue olmesartan/amlodipine/HCTZ combination. Optimal blood pressure management as an outpatient. History of Present Illness History of Present Illness Consult date/time: 12/20/24 09:56 Requesting physician: Thomas Ladd MD Reason For Visit: Bradycardia Narrative: DATE OF CONSULT: 12/20/2024 REASON FOR CONSULT: Bradycardia REQUESTING PHYSICIAN: MD YULIA CHIEF COMPLAINT: Chest discomfort HPI: 64-year-old male with hypertension, type 2 diabetes mellitus, dyslipidemia Patient presented to [facility] Emergency Room on 12/19/2024 with left-sided chest discomfort which he described as numbness like feeling that started couple of days prior to arrival to the hospital. 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 He denies any shortness of breath, palpitation, dizziness or syncope. EKG at presentation on my personal interpretation showed sinus rhythm with transition to junctional escape beats, RBBB. Subsequent EKG showed sinus bradycardia with intermittent junctional beats. On telemetry, BP has been in sinus bradycardia with heart rate in 30s to 50s and underlying RBBB. Three sets of troponins are negative. Chest x-ray unremarkable. Patient is a nonsmoker, denies excessive alcohol or illicit drugs. Works for [employer]. Review of Systems Review of Systems: General: Negative for fever, chills, fatigue Psychological: Negative for anxiety, depression Ophthalmic: negative for loss of vision ENT: Negative for epistaxis, headaches Allergy and immunology: Negative for hives, nasal congestion Hematologic and lymphatic: Negative for overt bleeding problems Endocrine: Negative for hot flashes, palpitations Respiratory: Negative for cough, hemoptysis Cardiovascular: Positive for chest discomfort which patient described as numbness like feeling in the chest Gastrointestinal: Negative for abdominal pain, nausea, vomiting, hematochezia Musculoskeletal: Negative for myalgia, joint pains Neurological: Negative for weakness Dermatological: Negative for rash, skin discoloration PMFSH Past Medical History Medical History (Updated 12/20/24 @ 10:17 by Milo Gonzalez MD) Hyperlipidemia Diabetes Family History Family History Mother Family history of malignant neoplasm Father Family history of malignant neoplasm Social History Social History Smoking status: Never smoker Alcohol intake: never Substance use: never Lack of Transportation: No Lack of Food: Never True Current Housing: I Have Housing Concerned About Future Housing: No Difficulty Paying Gas/Electric Bills: No Difficulty Paying for Meds: No Currently Unemployed: No Education: Decline to Answer Difficulty w/ Childcare or Family Care: No Spiritual care concerns: No Meds Home Medications and Allergies Home Medications ?Medication ?Instructions ?Recorded ?Confirmed ?Type metformin 500 mg tablet 500 mg PO BID 09/15/24 12/19/24 History metoprolol succinate 100 mg 100 mg PO DAILY 09/15/24 12/19/24 History tablet,extended release 24 hr olmesartan 20 mg-amlodipine 5 1 tablet PO DAILY 09/15/24 12/19/24 History mg-hydrochlorothiazide 12.5 mg tablet rosuvastatin 10 mg tablet 10 mg PO DAILY 09/15/24 12/19/24 History valacyclovir 1 gram tablet 1,000 mg PO PRN PRN outbreak 09/15/24 12/19/24 History Allergies Allergy/AdvReac Type Severity Reaction Status Date / Time No Known Allergies Allergy Unknown Verified 12/19/24 17:17 Vital Signs Vital Signs - 24 hr 12/19/24 11:40 12/19/24 13:16 12/19/24 13:17 Temperature 36.6 C Pulse Rate 45 L 41 L Respiratory Rate 17 13 Blood Pressure 149/75 H Pulse Oximetry 99 100 Oxygen Delivery Room Air Room Air 12/19/24 13:22 12/19/24 13:30 12/19/24 13:33 Temperature Pulse Rate 38 L 39 L 39 L Respiratory Rate 14 15 19 Blood Pressure 141/78 H 128/70 Pulse Oximetry 99 99 100 Oxygen Delivery 12/19/24 13:45 12/19/24 14:27 12/19/24 14:32 Temperature Pulse Rate 42 L 42 L 41 L Respiratory Rate 16 14 15 Blood Pressure Pulse Oximetry 99 99 100 Oxygen Delivery 12/19/24 14:45 12/19/24 15:00 12/19/24 15:01 Temperature Pulse Rate 45 L 38 L 38 L Respiratory Rate 17 12 12 Blood Pressure 144/73 H Pulse Oximetry 99 98 Oxygen Delivery 12/19/24 15:24 12/19/24 15:30 12/19/24 15:33 Temperature Pulse Rate 46 L 40 L 44 L Respiratory Rate 14 17 15 Blood Pressure 134/81 Pulse Oximetry 99 100 99 Oxygen Delivery 12/19/24 15:45 12/19/24 15:47 12/19/24 16:07 Temperature Pulse Rate 54 L 38 L 39 L Respiratory Rate 17 13 14 Blood Pressure 140/80 Pulse Oximetry 100 100 99 Oxygen Delivery 12/19/24 16:15 12/19/24 17:36 12/19/24 18:00 Temperature Pulse Rate 38 L 47 L Respiratory Rate 14 Blood Pressure Pulse Oximetry 97 97 Oxygen Delivery Room Air 12/19/24 19:50 12/19/24 20:00 12/19/24 22:00 Temperature 36.8 C Pulse Rate 50 L 55 L 57 L Respiratory Rate 15 Blood Pressure 136/64 Pulse Oximetry 98 Oxygen Delivery 12/20/24 00:00 12/20/24 00:00 12/20/24 02:00 Temperature 36.8 C Pulse Rate 42 L 43 L 61 Respiratory Rate 16 Blood Pressure 143/68 H Pulse Oximetry 95 Oxygen Delivery 12/20/24 04:00 12/20/24 04:38 12/20/24 06:00 Temperature 36.7 C Pulse Rate 46 L 52 L 55 L Respiratory Rate 15 Blood Pressure 143/61 H Pulse Oximetry 94 Oxygen Delivery 12/20/24 08:00 Temperature 36.9 C Pulse Rate 50 L Respiratory Rate 16 Blood Pressure 141/53 H Pulse Oximetry 95 Oxygen Delivery Exam Narrative: PHYSICAL EXAMINATION: GENERAL: Alert, oriented, no acute distress MENTAL STATUS: affect appropriate to mood EYES: Extraocular movements intact, no pallor EARS: External ears appear normal, hearing grossly normal NOSE: Normal and patent, no discharge MOUTH: Mucous membranes moist, tongue normal NECK: Supple, no JVD CHEST: Good respiratory effort, clear to auscultation HEART: Bradycardia, regular rhythm ABDOMEN: Soft, nontender NEUROLOGICAL: Alert, oriented, normal speech, no gross motor deficits MUSCULOSKELETAL: No major deformity, no amputation EXTREMITIES: No pedal edema, no clubbing, no cyanosis SKIN: no rash on the exposed area, no cyanosis PSYCHIATRIC: Normal mood, appropriate affect Results Labs and Meds 12/20/24 04:31 12/20/24 04:32 Lab results: Cardiac Enzymes 12/19/24 12/19/24 12/19/24 Range/Units 11:46 14:24 17:51 AST 34 (17-59) U/L Troponin I < 0.012 < 0.012 < 0.012 (0.000-0.034) ng/mL Coagulation 12/19/24 Range/Units 11:46 PT 12.5 (11.1-14.7) Seconds APTT 25.6 (22.3-36.8) Seconds CBC 12/19/24 12/20/24 Range/Units 11:46 04:31 WBC 5.0 5.7 (4.5-10.0) K/mm3 RBC 4.90 4.29 L (4.6-6.20) M/mm3 Hgb 12.7 L 11.2 L (14.0-18.0) g/dL Hct 40.7 L 35.4 L (42.0-52.0) % Plt Count 251 229 (150-375) k/mm3 Lymph # (Auto) 1.82 2.28 (0.9-3.2) K/mm3 [place] # (Auto) 0.4 0.4 (0.1-0.6) K/mm3 Eos # (Auto) 0.4 H 0.4 H (0-0.3) K/mm3 Baso # (Auto) 0.0 0.0 (0.0-0.1) K/mm3 Comprehensive Metabolic Panel 12/19/24 12/20/24 Range/Units 11:46 04:32 Sodium 138 138 (137-145) mmol/L Potassium 3.9 3.8 (3.4-5.0) mmol/L Chloride 101 103 (98-107) mmol/L Carbon Dioxide 31 H 30 (22-30) mmol/L BUN 13 18 (9-20) mg/dL Creatinine 0.93 0.90 (0.7-1.3) mg/dL Glucose 177 H 123 H (65-110) mg/dL Calcium 9.2 8.8 (8.4-10.2) mg/dL AST 34 (17-59) U/L ALT 29 (6-50) U/L Alkaline Phosphatase 92 (38-126) U/L Total Protein 8.2 (6.3-8.2) g/dL Albumin 4.5 (3.5-5.1) g/dL Intake and Output 12/19/24 12/20/24 12/20/24 23:59 07:59 15:59 Intake Total 360 1001 Balance 360 1001 Intake: Oral 360 1001 Other: # Unmeasured Voids 1 1 Patient Weight 12/20/24 23:59 Weight 88.8 kg
--- NOTE | 2024-12-20 17:26 | PC.NURSE ---
On 12/20/24, the student, [ Anjali Smith], provided care and completed [facility] documentation on this patient. I have reviewed the student's documentation and agree with the findings.
[2024-12-21] VITALS (7 sets, daily range): BP systolic 147–151; BP diastolic 82–93; PULSE 46–61; RESP 15–16; TEMP 36.6–36.7; O2SAT 5–100
[2024-12-21] MEDS: [UNRECOGNIZED DRUG - OTHER] 1 EACH PO (08:04)
[2024-12-21] MEDS: ROSUVASTATIN 10 MG 1 EACH BY MOUTH (08:05)
--- NOTE | 2024-12-21 09:20 | PM.PNCARD ---
Progress Note: A&P Assessment and Plan (1) Chest discomfort: Code(s): R07.89 - Other chest pain Status: Acute Assessment and Plan: 64-year-old male with hypertension, type 2 diabetes mellitus, dyslipidemia. Patient presented to the hospital with complaints of left-sided chest discomfort which he described as numbness like sensation in the chest. 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 His EKG at presentation showed sinus bradycardia with transition to junctional escape rhythm; subsequent EKG showed sinus bradycardia with intermittent junctional escape beats. His beta-jose a was discontinued. On telemetry, is currently in sinus rhythm with underlying RBBB. No high-grade AV blocks noted since yesterday. Serial troponins negative. TSH within normal limits. -metoprolol succinate was discontinued. Avoid AV onelia blocking agents for now. -if patient has any recurrent bradyarrhythmia after discontinuation of AV onelia blocking agents, then will consider ambulatory compliance monitor. -I spoke at length with the patient and his was over the phone. Patient wants to go home and prefers to have any additional cardiac testing done as an outpatient. (2) Bradycardia: Code(s): R00.1 - Bradycardia, unspecified Status: Acute Assessment and Plan: Spoke with patient about bradycardia which could have been secondary to metoprolol succinate. Heart rate has normalized after discontinuation of metoprolol succinate. (3) Hypertension associated with type 2 diabetes mellitus: Code(s): E11.59 - Type 2 diabetes mellitus with other circulatory complications; I15.2 - Hypertension secondary to endocrine disorders Status: Acute Assessment and Plan: Avoid AV onelia blocking agents for now. Metoprolol succinate has been discontinued. Continue olmesartan/amlodipine/HCTZ combination. Monitor blood pressure at home. Optimal blood pressure management as an outpatient. Outpatient target blood pressure less than 130/80 mmHg. Adhere to low-salt diet Subjective Date/time seen: 12/21/24 09:20 Interval history: 12/21/2024-patient states that his chest discomfort has resolved. No shortness of breath. On telemetry, patient has remained in sinus bradycardia/sinus rhythm without high-degree AV block. Patient is eager to go home. I spoke at length with the patient and his was over the phone. Patient prefers to have any additional cardiac testing done as an outpatient. Review of Systems Review of Systems: General: Negative for fever, chills, fatigue Psychological: Negative for anxiety, depression Ophthalmic: negative for loss of vision ENT: Negative for epistaxis, headaches Allergy and immunology: Negative for hives, nasal congestion Hematologic and lymphatic: Negative for overt bleeding problems Endocrine: Negative for hot flashes, palpitations Respiratory: Negative for cough, hemoptysis Cardiovascular: Positive for chest discomfort which patient described as numbness like feeling in the chest-improved Gastrointestinal: Negative for abdominal pain Musculoskeletal: Negative for myalgia, joint pains Neurological: Negative for weakness Dermatological: Negative for rash, skin discoloration Exam Narrative: PHYSICAL EXAMINATION: GENERAL: Alert, oriented, no acute distress MENTAL STATUS: affect appropriate to mood EYES: Extraocular movements intact, no pallor EARS: External ears appear normal, hearing grossly normal NOSE: Normal and patent, no discharge MOUTH: Mucous membranes moist, tongue normal NECK: Supple, no JVD CHEST: Good respiratory effort, clear to auscultation HEART: Normal heart rate at present, regular rhythm ABDOMEN: Soft, nontender NEUROLOGICAL: Alert, oriented, normal speech, no gross motor deficits MUSCULOSKELETAL: No major deformity, no amputation EXTREMITIES: No pedal edema, no clubbing, no cyanosis SKIN: no rash on the exposed area, no cyanosis PSYCHIATRIC: Normal mood, appropriate affect Objective Data Vital Signs Vital Signs: Vital Signs - 24 hr 12/20/24 10:00 12/20/24 12:00 12/20/24 12:00 Temperature Pulse Rate 42 L 42 L Respiratory Rate Blood Pressure Pulse Oximetry 95 Oxygen Delivery Room Air 12/20/24 12:00 12/20/24 14:00 12/20/24 16:00 Temperature 36.7 C 36.6 C Pulse Rate 40 L 46 L 48 L Respiratory Rate 16 20 Blood Pressure 162/64 H 169/74 H Pulse Oximetry 100 97 Oxygen Delivery 12/20/24 16:00 12/20/24 16:00 12/20/24 18:00 Temperature Pulse Rate 45 L 62 Respiratory Rate Blood Pressure Pulse Oximetry 97 Oxygen Delivery Room Air 12/20/24 20:00 12/20/24 20:00 12/20/24 20:00 Temperature 36.8 C Pulse Rate 51 L 53 L Respiratory Rate 18 Blood Pressure 137/64 Pulse Oximetry 97 95 Oxygen Delivery Room Air 12/20/24 21:41 12/20/24 22:00 12/20/24 23:21 Temperature 36.6 C Pulse Rate 59 L 69 Respiratory Rate 16 Blood Pressure 146/69 H Pulse Oximetry 96 94 Oxygen Delivery Room Air 12/21/24 00:00 12/21/24 00:00 12/21/24 02:00 Temperature Pulse Rate 56 L 50 L Respiratory Rate Blood Pressure Pulse Oximetry 94 Oxygen Delivery Room Air 12/21/24 04:00 12/21/24 04:00 12/21/24 06:00 Temperature Pulse Rate 52 L 46 L Respiratory Rate Blood Pressure Pulse Oximetry 5 L Oxygen Delivery Room Air 12/21/24 06:14 12/21/24 07:58 12/21/24 08:00 Temperature 36.7 C 36.6 C Pulse Rate 58 L 61 Respiratory Rate 15 16 Blood Pressure 147/82 H 151/93 H Pulse Oximetry 98 100 100 Oxygen Delivery Room Air 12/21/24 08:00 Temperature Pulse Rate 56 L Respiratory Rate Blood Pressure Pulse Oximetry Oxygen Delivery Intake/Output Intake/Output: Intake & Output 12/18/24 12/19/24 12/20/24 12/21/24 23:59 23:59 23:59 23:59 Intake Total 360 2001 590 Output Total 700 Balance 360 1301 590 Meds/Results Medications: Active Medications Generic Name Dose Route Start Last Admin Trade Name Freq PRN Reason Stop Dose Admin Aspirin 81 mg 12/21/24 09:00 12/21/24 09:18 Aspirin 81 Mg Enteric Tablet PO Not Given QAM REGINALD Dextrose 12.5 gm 12/19/24 15:36 Dextrose 50% 25 Gm/50 Ml Syringe IV PUSH PRN PRN Hypoglycemia Protocol Docusate Sodium 100 mg 12/19/24 15:36 Docusate Sodium 100 Mg Capsule PO BID PRN Constipation Ferrous Sulfate 325 mg 12/21/24 09:00 12/21/24 09:19 Ferrous Sulfate 325 Mg Tablet PO Not Given DAILY REGINALD Glucagon 1 mg 12/19/24 15:36 Glucagon For Inj 1 Mg Vial IM PRN PRN Hypoglycemia Protocol Glucose 15 gm 12/19/24 15:36 Glucose Oral Gel 15 Gm Of Glucse In 37.5 Gm Tube PO PRN PRN Hypoglycemia Protocol Dextrose 1,000 mls @ 100 mls/hr 12/19/24 15:36 Dextrose 5% 1,000 Ml IVPB PRN PRN Hypoglycemia Protocol Insulin Aspart 2 - 5 units 12/19/24 17:00 12/21/24 08:04 Insulin Aspart (*Bkc) 100 Units/Ml SUB-Q Not Given TIDWM REGINALD Protocol Home Med ( 1 tablet 12/20/24 09:00 12/21/24 08:04 Olmesartan- PO 01/19/25 08:59 1 tablet Amlodipine-Hctz 20-5 DAILY REGINALD Administration -12.5 Mg Tablet) Home Med 1 each 12/20/24 09:00 12/21/24 08:05 Rosuvastatin 10 Mg BY MOUTH 01/19/25 08:59 1 each Tablet DAILY REGINALD Administration Perflutren Lipid Microsphere 0 ml 12/19/24 21:19 Perflutren Lipid Microspheres 1.5 Ml Vial Diluted To 10 Ml Total Volume IV PUSH 12/22/24 21:20 ONCE PRN adequate visualization Protocol Radiology Results: ITS Impressions Chest X-Ray 12/19/24 12:31 Impression: No acute cardiopulmonary abnormality. Labs Labs: Laboratory Results - last 24 hr 12/20/24 12/20/24 12/20/24 11:34 15:39 20:34 POC Capillary Glucose 128 H 141 H 129 H 12/21/24 07:34 POC Capillary Glucose 138 H
--- NOTE | 2024-12-21 10:43 | P.DS_ITS ---
DS: Admitting Diagnosis Discharge Date 12/21/24 Admitting Diagnosis - chest discomfort - bradycardia - anemia - diabetes DS: Discharge Diagnosis Discharge Diagnosis (1) Chest discomfort: Code(s): R07.89 - Other chest pain Status: Acute (2) Bradycardia: Code(s): R00.1 - Bradycardia, unspecified Status: Acute (3) Anemia: Code(s): D64.9 - Anemia, unspecified Status: Acute (4) Diabetes: Code(s): E11.9 - Type 2 diabetes mellitus without complications Status: Acute (5) Hyperlipidemia: Code(s): E78.5 - Hyperlipidemia, unspecified Status: Acute DS: Summary Hospital Course Reason for hospitalization: - chest discomfort - bradycardia - anemia - diabetes Hospital Course: Patient is a 64-year-old male with past medical history of type 2 diabetes, hyperlipidemia who presented the emergency department with complaints of chest discomfort. Lab work showed hemoglobin 12.7, carbon dioxide 31, glucose of 177, troponins x2 negative. Chest x-ray with no acute process. EKG shows bradycardia with right bundle branch block rate of 41. Patient was admitted for further cardiac evaluation. Upon admission, cardiology was consulted who recommend to hold patient's metoprolol. Echocardiogram was ordered however unable to be obtained over the weekend. Patient's heart rate did improve with holding metoprolol. His chest discomfort improved. Troponin was negative x3. Patient denied any exertional chest discomfort, lightheadedness or near-syncope. 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 Cardiology followed and cleared patient for discharge with close outpatient follow-up. Will consider outpatient monitoring and evaluation advisor. Patient preferred to have further cardiac testing done as outpatient. Patient was instructed to monitor his blood pressures at home and keep a log. Strict return precautions discussed. Patient also found to be mildly anemic. Iron studies consistent with iron deficiency anemia. He was started on ferrous sulfate daily. No signs of active bleeding. Instructed to follow up closely with his primary care provider and consider outpatient colonoscopy if he has not had one recently. Patient was discharged home in stable condition. Status at Discharge Functional status at discharge: independent ambulation Time Spent with Patient Time attestation: Total time spent providing and/or coordinating discharge services: Time spent: Greater than 30 minutes Exam Narrative: General: NAD Eyes: EOMI ENT: neck supple Cardiovascular: Bradycardic, regular rhythm Respiratory: Clear to auscultation, respirations even and unlabored on RA Gastrointestinal: Soft, non tender Genitourinary: no suprapubic tenderness Musculoskeletal: No edema Skin: warm, dry Neuro: Alert. Psych: Mood appropriate DS: Data Data Completed and Pending Completed studies during hospitalization: ITS Impressions Chest X-Ray 12/19/24 12:31 Impression: No acute cardiopulmonary abnormality. Labs on day of discharge: Labs from last 24 hours 12/21/24 12/20/24 12/20/24 07:34 20:34 15:39 POC Capillary Glucose 138 H 129 H 141 H 12/20/24 11:34 POC Capillary Glucose 128 H Discharge Plan Discharge Attending physician on discharge: Patricia Robles Consulting providers: Marli Hart; Taco Frazier; Irena Kaur Discharging Clinician: Irena Kaur Anticipated Discharge Date/Time: 12/21/24 10:38 Patient Disposition: Home Activity: as tolerated Diet: as tolerated and regular Discharge Instructions: Take all medications as prescribed. STOP taking metoprolol which was likely causing low heart rate. Follow-up with your primary care provider in one week. While in the hospital, you were found to have mildly low iron levels and to be mildly anemic. Follow- up with your primary care doctor to discuss this. You were started on an iron supplement. You should talk to her primary care doctor about getting a colonoscopy if you have not had one recently. Make a follow-up appointment with the signal wirer (Dr. Gonzalez) to discuss an outpatient monitoring and evaluation advisor and have an echocardiogram scheduled. Return to the emergency department if you develop chest pain, shortness of breath, persistent fever >100.4, confusion, loss of consciousness. Patient Instructions: Bradycardia (DC) Patient Language: Chinese Stand Alone Forms: General Discharge Information Follow-up/Referrals: Joseph June [Other] - Call for Appointment Referral Note: follow-up in 5-7 days Milo Gonzalez MD [Physician, Cardiology] Discharge Medications: New ferrous sulfate 325 mg (65 mg iron) Tablet,Delayed Release (Dr/Ec) 325 mg PO DAILY 30 Days Qty: 30 0RF Continued metformin 500 mg tablet 500 mg PO BID [id number] 20-5-12.5 mg tablet 1 tablet PO DAILY rosuvastatin 10 mg tablet 10 mg PO DAILY valacyclovir 1 gram tablet 1,000 mg PO PRN PRN (Reason: outbreak) Discontinued metoprolol succinate 100 mg tablet extended release 24 hr 100 mg PO DAILY Date of admission: 12/20/24 12:10 Primary Care Provider: Joseph June Admitting Provider: Praveen Palacios Attending physician on admission: Praveen Palacios Condition: Stable
== END 2024-12-21 11:30 | disposition home or self-care (01) | DRG 313 ==
LOC: ANHED 13:50 → ANHIMU 16:01
PROVIDERS: Nurse Practitioner Gerontology; Admitting Provider Internal Medicine; Emergency Provider Emergency Medicine; Visit Provider Physician Assistant
DX: R07.89 Other chest pain (principal); T44.7X5A Adverse effect of beta-adrenoreceptor antagonists, initial encounter; R00.1 Bradycardia, unspecified; I45.10 Unspecified right bundle-branch block; E78.5 Hyperlipidemia, unspecified; D50.9 Iron deficiency anemia, unspecified; I10 Essential (primary) hypertension; E11.8 Type 2 diabetes mellitus with unspecified complications; Z79.84 Long term (current) use of oral hypoglycemic drugs
CPT/HCPCS: 36415; 71046; 80048; 80053; 82607; 82728; 82746; 82948; 83540; 83550; 83690; 84443; 84484; 85025; 85380; 85610; 85730; 93005; 96374; 99285; G0378; J1885

== ENCOUNTER 2025-01-09 18:14 | Emergency (ER) | payer MEDICARE, SELFPAY ==
--- OUTSIDE RECORDS SUMMARY | 2017-05-15 02:30 | XMS_ITS | Continuity of Care Document ---
Author Organization [facility] Address [address] [place] [address] Phone Care Team Providers Care Rapid Transit Operator Name Role Phone Curt French MD Unavailable Unavailable Allergies, Adverse Reactions, Alerts Substance Reaction Status Criticality No Known Allergies Active No Inform ation Medications Medication Instructions Dosage Effective Dates (start - stop) Status Comments Medrol (Cristobal) 4 mg tablets in a dose pack TAKE DIRECTED - Active losartan 100 mg-hydrochlorothiazi de 25 mg tablet take 1 tablet by oral route every day 1.00 tablet - Active lisinopril 40 mg tablet take 1 tablet by oral route every day 40 MG - Active potassium chloride 20 mEq oral packet take 1 packet by oral route 4 times every day dissolved in 4-6 ounces of cold water or juice 20 MEQ - Active simvastatin 40 mg tablet take 1 tablet by oral route every day in the evening 40 MG - Active metoprolol succinate ER 100 mg tablet,extended release 24 hr take 1 tablet by oral route every day 100 MG - Active Procedures Procedure Date POSTOP FOLLOW-UP VISIT POSTOP FOLLOW-UP VISIT POSTOP FOLLOW-UP VISIT OFFICE/OUTPATIENT VISIT EST OFFICE/OUTPATIENT VISIT NEW Advance Directives Directive Yes / No Effective Date File Name No Information Encounters Encounter Description Practice Location Reason(s) For Visit Diagnoses Date Provider Providers Copied on Encounter [facility], [address], [place], [address], [place] tel:[phone] [facility] Other specified postprocedural states 8 Ausydniechojerry Elias. [address], [place], [place], [id number] . tel: [phone] [facility], [address] [place] [address], [address], [place] tel:[phone] [facility] PO LT ANKLE (chief complaint) Other specified postprocedural states 8 Ausydniechojerry Elias. [address], [place], [place], [id number] . tel: [phone] [facility], [address] [place] [address], [address], [place] tel:[phone] [facility] Strain of muscle(s) and tendon(s) of peroneal muscle group at lower leg level, left leg, subsequent encounter 8 Gillian Elias. [address], [place], [place], [id number] . tel: [phone] [facility], [address] [place] [address], [address], [place] tel:[phone] [facility] [address] Tear of peroneal tendon, left, initial encounterOther synovitis and tenosynovitis, left ankle and foot 8 Suzannechojerry Elias. [address], [place], [place], [address] . tel: [phone] OFFICE/OUTPA TIENT VISIT EST [facility], [address] [place] [address], [address], [place] tel:[phone] [facility] Tear of peroneal tendon, left, initial encounter 8 Gillina Elias. [address], [place], [place], [address] . tel: [phone] Referring Provider: Curt French, [address], [place], [address] . tel:[phone] OFFICE/OUTPA TIENT VISIT [facility], [address], [place], [address], [place] tel:[phone] [facility] Osteochondritis dissecans of left talus 8 Aubuchojerry Elias. [address], [place], [place], [address] . tel: [phone] Referring Provider: Joseph June , [address] , [place], [address]. tel:[phone] Family History Family Member Type Diagnosis Age At Onset No Information Payers Payer name Insurance type Covered democrat ID Authoriza tion(s) Aet[employer] Choice POS II [id number] [id number] [facility] Choice/Choice Plus E2 [id number] Social History Type Description Quantity Date Captured Comments Alcohol Use Details Unknown Caffeine Use Details Unknown Tobacco Use Status No Information Smoking Status Never smoker Sex Male Chief Complaint And Reason For Visit No Information Reason For Referral Reason For Referral No Information Plan Of Treatment Date Type Action Status Referral Ordered: ELECTROCARDIOGRAM COMPLETE ordered Referral Ordered: MRI ANY JT LXTR C-MATRL LT ankle Appointment date/timeframe: 03/13/2017 ordered Referral Ordered: MRI ANY JT LXTR C-MATRL LT foot ordered History Of Present Illness Encounter Date Complaint History Of Prese nt Illness PO LT ANKLE Functional Status Date Functional Assessmen t No Information Instructions Date Instruction Additional Infor mation Activity as tolerated. Related t o Other specified postprocedural states Ice or heat for comfort Related to Other specified postprocedural states Activity as tolerated. Related t o Other specified postprocedural states Ice as tolerated Related to Othe r specified postprocedural states Use of assistive devices as need ed Related to Other specified postprocedural states Take medication as directed. Rel ated to Other specified postprocedural states Activity as tolerated. Related t o Other specified postprocedural states Activity as tolerated. Related t o Osteochondritis dissecans of left talus Ice as tolerated Related to Oste ochondritis dissecans of left talus Assessments Type Assessment Date assessment Other specified postprocedural s gregor Patient Care Teams Name Effective Dates (start - stop) Status Members No Information
--- OUTSIDE RECORDS SUMMARY | 2017-06-28 11:00 | XMS_ITS | Continuity of Care Document ---
Author Organization [facility] Address [address] [place] [address] Phone Care Team Providers Care Inside Channel Account Manager Name Role Phone Phan Ramila COHEN Unavailable Unavailable Procedures Procedure Date PT Re-evaluation Therapeutic Exercise Therapeutic Activities Neuromuscular Re-Ed Manual Therapy Therapeutic Exercise Therapeutic Activities Neuromuscular Re-Ed Manual Therapy Therapeutic Exercise Therapeutic Activities Neuromuscular Re-Ed Manual Therapy Therapeutic Exercise Therapeutic Activities Neuromuscular Re-Ed Manual Therapy Therapeutic Exercise Therapeutic Activities Neuromuscular Re-Ed Manual Therapy Therapeutic Exercise Therapeutic Activities Neuromuscular Re-Ed Manual Therapy Hot or Cold Pack Therapeutic Exercise Therapeutic Activities Neuromuscular Re-Ed Manual Therapy Hot or Cold Pack PT Evaluation Low Complexity Therapeutic Exercise Hot or Cold Pack Advance Directives Directive Yes / No Effective Date File Name No Information Encounters Encounter Description Practice Location Reason(s) For Visit Diagnoses Date Provider Providers Copied on Encounter [facility], [address], [place], [place], [id number], [place] tel:[phone] [place] Effusion, left ankleMuscle weakness (generalized) Pain in left ankle and joints of left footStrain of unsp msl/tnd at ank/ft level, left foot, subs Chisholm Ramila. [address], [place], [place], [facility], . tel:[phone] [facility], [place], [place], [address], [place] tel:[phone] [place] Muscle weakness (generalized) Pain in left ankle and joints of left footEffusion, left ankleStrain of unsp msl/tnd at ank/ft level, left foot, subs Evin Jerez. . [facility], [place], [place], [address], [place] tel:[phone] [place] Pain in left ankle and joints of left footEffusion, left ankleMuscle weakness (generalized) Strain of unsp msl/tnd at ank/ft level, left foot, subs Chisholm Ramila. [address], [place], [place], [facility], [place]. tel:[phone] [facility], [place], [place], [address], [place] tel:[phone] [place] Pain in left ankle and joints of left footEffusion, left ankleMuscle weakness (generalized) Strain of unsp msl/tnd at ank/ft level, left foot, subs Chisholm Ramila. [address] [address], [place], [place], [facility], [place]. tel:[phone] [facility], [place], [place], [address], [place] tel:[phone] [place] Pain in left ankle and joints of left footEffusion, left ankleMuscle weakness (generalized) Strain of unsp msl/tnd at ank/ft level, left foot, subs Evin Jerez. . [facility], [address], [place], [place], [address], tel:[phone] [place] Pain in left ankle and joints of left footEffusion, left ankleMuscle weakness (generalized) Strain of unsp msl/tnd at ank/ft level, left foot, subs Chisholm Ramila. [address], [place], [place], [facility], . tel:[phone] [facility], [address], [place], [place], [address], tel:[phone] [place] Pain in left ankle and joints of left footEffusion, left ankleMuscle weakness (generalized) Strain of unsp msl/tnd at ank/ft level, left foot, subs Chisholm Ramila. [address], [place], [place], [facility], . tel:[phone] [facility], [address], [place], [place], [address], tel:[phone] [place] Pain in left ankle and joints of left footEffusion, left ankleMuscle weakness (generalized) Strain of unsp msl/tnd at ank/ft level, left foot, subs [employer] Ramila. [address], [address], [place], [place], [facility], . tel:[phone] Family History Family Member Type Diagnosis Age At Onset No Information Payers Payer name Insurance type Covered constitution party ID Authorbryona nika(s) [facility] [id number] [facility] CI [id number] Social History Type Description Quantity Date Captured Comments Sex Male Smoking Status No Information Chief Complaint And Reason For Visit No Information Reason For Referral Reason For Referral No Information History Of Present Illness Encounter Date Complaint History Of Prese nt Illness No Information Functional Status Date Functional Assessmen t No Information Instructions Date Instruction Additional Infor mation No Information Assessments Type Assessment Date No Information Patient Care Teams Name Effective Dates (start - stop) Status Members No Information
--- OUTSIDE RECORDS SUMMARY | 2017-06-28 11:00 | XMS_ITS | Continuity of Care Document ---
Author Organization [facility] Address [address] [place] [address] Phone Care Team Providers Care Supervisor Metal Furniture Fabrication Name Role Phone Phan Ramila COHEN Unavailable [...] Diagnoses Date Provider Providers Copied on [facility]counter [facility], [address], [place], [place], [address], [place] tel:[phone] [place] Effusion, left ankleMuscle weakness (generalized) Pain in left ankle and joints of left footStrain of unsp msl/tnd at ank/ft level, left foot, subs Chisholm Ramila. [address], [address], [place], [place], [facility], . tel:[phone] [facility], [place], [place], [address], [place] tel:[phone] [place] Muscle weakness (generalized) Pain in left ankle and joints of left footEffusion, left ankleStrain of unsp msl/tnd at ank/ft level, left foot, subs Evin Jerez. . [facility], [place], [place], [address], [place] tel:[phone] [place] Pain in left ankle and joints of left footEffusion, left ankleMuscle weakness (generalized) Strain of unsp msl/tnd at ank/ft level, left foot, subs Chisholm Ramila. [address] [facility] [address], [address], [place], [place], [facility], [place]. tel:[phone] [facility], [place], [place], [address], [place] tel:[phone] [place] Pain in left ankle and joints of left footEffusion, left ankleMuscle weakness (generalized) Strain of unsp msl/tnd at ank/ft level, left foot, subs Chisholm Ramila. [address] [facility] [address], [address], [place], [place], [facility], [place]. tel:[phone] [facility], [place], [place], [address], [place] tel:[phone] [place] Pain in left ankle and joints of left footEffusion, left ankleMuscle weakness (generalized) Strain of unsp msl/tnd at ank/ft level, left foot, subs Evin Jerez. . [facility], [address], [place], [place], [address], tel:[phone] [place] Pain in left ankle and joints of left footEffusion, left ankleMuscle weakness (generalized) Strain of unsp msl/tnd at ank/ft level, left foot, subs Chisholm Ramila. [address] [facility], [address], [place], [place], [facility], . tel:[phone] [facility], [address], [place], [place], [address], tel:[phone] [place] Pain in left ankle and joints of left footEffusion, left ankleMuscle weakness (generalized) Strain of unsp msl/tnd at ank/ft level, left foot, subs Chisholm Ramila. [address] [facility], [address], [place], [place], [facility], . tel:[phone] [facility], [address], [place], [place], [address], tel:[phone] [place] Pain in left ankle and joints of left footEffusion, left ankleMuscle weakness (generalized) Strain of unsp msl/tnd at ank/ft level, left foot, subs [employer] Ramila. [address] [facility] [address], [address], [place], [place], [facility], . tel:[phone] Family History Family Member Type Diagnosis Age At Onset No Information Payers Payer name Insurance type Covered alliance party ID Authorbryona nika(s) [facility] [id number] [facility] CI [id number] Social History Type Description Quantity Date Captured [...]
--- NOTE | ~2025-01-09 | XR_ITS ---
EXAMINATION: XR chest 2V 01/09/2025 19:01 INDICATION: Chest pain PROCEDURE: 2 view chest COMPARISON: 12/19/2024 FINDINGS: The lungs are clear. The cardiomediastinal silhouette is within normal limits. There are no pleural effusions. There is no pneumothorax suspected. IMPRESSION: 1: NO ACUTE CARDIOPULMONARY DISEASE. Reviewed, dictated and finalized at location O. [employer] DAMAGE FI[employer] [facility]
--- NOTE | 2025-01-09 18:15 | ECG_ITS ---
Test Date: 2025-01-09 18:37:16 Measurements Intervals [place] Rate: 82 P: 52 VA: 202 QRS: -12 QRSD: 145 T: 22 QT: 370 QTc: 435 Interpretive Statements SINUS RHYTHM RIGHT BUNDLE BRANCH BLOCK [120+ ms QRS DURATION, UPRIGHT V1, 40+ ms S IN I/aVL/V4/V5/V6] MINIMAL VOLTAGE CRITERIA FOR LVH, CONSIDER NORMAL VARIANT [MEETS CRITERIA IN ONE OF: R(aVL), S(V1), R(V5), R(V5/V6)+S(V1)] ABNORMAL ECG Compared to ECG 12/19/2024 14:13:26 No significant changes Electronically Signed On 01-10-2025 08:29:31 [employer] OFFICER by Ronan Narayanan M.D.
[2025-01-09 18:17] VITALS: BP 156/80; PULSE 96; RESP 16; TEMP 36.8; O2SAT 98
--- OUTSIDE RECORDS SUMMARY | 2025-01-09 18:17 | XMS_ITS | Clinical Summary ---
Author Organization [facility] Physician Of [facility] 1 Address [address] [place] [address] Care Team Providers Care Traffic Administrator Name Role Phone Joseph June MD Primary Care Provider [phone] Allergies No known active allergies Medications olmesartan-amL ODIPin-hcthiaz id 20-5-12.5 mg tabletIndicati ons:hypertensi on Take by mouth every morning Active rosuvastatin (CRESTOR) 10 mg tabletIndicati ons:hyperlipid emia Take 10 mg by mouth daily before breakfast Active ASCORBIC ACID, VITAMIN C, ORAL Take by mouth every morning Active potassium chloride ER (KLOR-CON) 20 mEq CR tablet as needed 04/08/19 19 Active valACYclovir (VALTREX) 1 gram tablet TAKE 1 TABLET DAILY (NEED TO SCHEDULE APPOINTMENT). 03/29/19 17 Active iron 18 mg tablet Take by mouth every morning Active sildenafiL (VIAGRA) 100 mg tabletIndicati ons:Erectile Dysfunction Take 1 tablet (100 mg total) by mouth daily as needed for erectile dysfunction 20 tablet 11 11/29/19 23 Active metFORMIN (GLUCOPHAGE) 500 mg tablet Take 1 tablet (500 mg total) by mouth daily with breakfast 06/20/19 25 Active aspirin 81 mg enteric coated tablet Take 1 tablet (81 mg total) by mouth daily Active metoprolol XL (TOPROL-XL) 100 mg 24 hr tabletIndicati ons:hypertensi on Take 100 mg by mouth every morning 2024 Discontinued(P atient Reported) levoFLOXacin (LEVAQUIN) 500 mg tabletIndicati ons:Other (complete free text reason below) Take 1 tablet by mouth at 6 AM morning of surgery and take 1 tablet by mouth day of catheter removal 2 tablet 04/03/19 20 2024 Discontinued ibuprofen (ADVIL,MOTRIN) 200 mg tab/cap Take by mouth every 6 (six) hours as needed for pain 2024 Discontinued naproxen (ALEVE) 220 mg tablet Take by mouth 2 (two) times a day with meals 2024 Discontinued famotidine (PEPCID) 40 mg tablet Take 40 mg by mouth daily 2024 Discontinued docusate sodium (COLACE) 100 mg capsuleIndicat ions:constipat ion Take 1 capsule (100 mg total) by mouth 2 (two) times a day as needed for constipation 10 capsule 05/02/19 20 2024 Discontinued oxyCODONE (ROXICODONE) 5 mg immediate release tabletIndicati ons:Pain Take 1 tablet (5 mg total) by mouth every 6 (six) hours as needed for pain 10 tablet 05/02/19 20 2024 Discontinued oxybutynin (DITROPAN) 5 mg tablet Take 1 tablet (5 mg total) by mouth 3 (three) times a day as needed (bladder spasms) 30 tablet 05/05/19 20 2024 Discontinued tadalafiL (CIALIS) 5 mg tabletIndicati ons:Prostate cancer (HCC) Take 1 tablet (5 mg total) by mouth daily 30 tablet 3 05/15/19 20 2024 Discontinued Active Problems Problem Noted Date Diagnosed Date Prostate cancer 04/03/2019 Overview (04/03/2019): Added automatically from request for surgery [id number] Encounters Date Type Department Care Team Description 01/08/2025 Telephone [facility] Cardiology [address] [place] [address] [place] [address] [place] [phone] Milo Hatch MD 01/07/2025 8:15 AM PACKING MACHINE FEEDER Ancillary Procedure [facility] Cardiology at [address] [place] [address] Bradycardia; Abnormal electrocardiogram (ECG) (EKG) 01/06/2025 Results Follow-Up [facility] Cardiology [address] [place] [address] [place] [phone] Debbie Dillard NP 24 HR Holter Monitor, Transthoracic Echo (TTE) Complete W Doppler/CF 01/01/2025 11:25 AM CDT Ancillary Procedure [place] [address] [place] [phone] Bradycardia 01/01/2025 9:00 AM CDT Office Visit [place] [address] [place] [phone] Debbie Dillard NP Bradycardia (Primary Dx); Abnormal electrocardiogram (ECG) (EKG); Abnormal nuclear stress test; Abnormal findings on diagnostic imaging of heart and coronary circulation; Chest discomfort; Hyperlipidemia associated with type 2 diabetes mellitus (HCC); Essential hypertension; Hospital discharge follow-up 01/01/2025 Telephone [place] [address] [place] [phone] Debbie Dillard NP Test Results 12/30/2024 10:15 AM CDT Ancillary Procedure [place] [address] [place] [phone] Chest pain, unspecified type 12/26/2024 Telephone [place] [address] [place] [phone] Debbie Dillard NP HFU; stress test order 12/24/2024 Orders Only [place] [address] [place] [phone] Milo Hatch MD from Last 3 Months Surgical History Surgery Date Site/Laterality Comments ANKLE [...] on file Legal Sex Male 3:00 PM PACKING MACHINE FEEDER Gender Identity Male 11/16/2020 8:41 AM CDT Sexual Orientation Straight 11/16/2020 8: 41 AM CDT Last Filed Vital Signs Vital Sign Reading Time Taken Comments Blood Pressure 138/72 01/01/2025 9:07 AM CDT Pulse 86 01/01/2025 9:07 AM CDT Temperature 36.7 C (98 F) 11/29/2021 8:34 AM CDT Respiratory Rate 16 05/02/2019 8:01 AM PACKING MACHINE FEEDER Oxygen Saturation 98% 01/01/2025 9:07 AM CDT Inhaled Oxygen Concentration - - Weight 90.9 kg (200 lb 8 oz) 01/01/2025 9:07 AM CDT Height 182.9 cm (6') 01/01/2025 9:07 AM CDT Body Mass Index 27.19 01/01/2025 9:07 AM CDT Plan of Treatment Health Maintenance Due Date Last Done Comments Albumin Creatinine Ratio, Urine 1960 Colon Cancer Screening-Colonoscopy 1960 Depression Screening 1960 Fall Risk Assessment 1960 Hepatitis C Screening 1960 eGFR 1960 Dilated Eye Exam 1960 Foot Exam 1960 Hepatitis B Screening 1977 Pneumococcal vaccine 65+ (2 of 2 - PPSV23, PCV20, or PCV21) 12/30/2004 11/04/2004 DTaP/Tdap/Td Vaccine (2 - Td or Tdap) 07/14/2017 07/15/2007 Lipid Panel 02/02/2021 02/03/2020, 01/28/2019 Well Visit 65+ 01/26/2024 Covid-19 Vaccine (5 - 2024-2 6 season) 2024 03/11/2024, 01/04/2021, 04/20/2020, Additional history exists Prostate Cancer Screening-PSA 11/28/2024, 11/29/2021, 11/23/2020, Additional history exists Hemoglobin A1C 06/19/2025 12/19/2024, 09/03, 05/23/2023, Additional history exists Zoster Vaccine Completed 03/28/2023, 10/03, 06/20/2022 Influenza Vaccine Completed 11/29/2024, , 02/01/2023, Additional history exists Procedures Procedure Name Priority Date/Time Associated Diagnosis Comments TRANSTHORACIC ECHO (TTE) COMPLETE W DOPPLER/CF WO CONTRAST Routine 01/07/2025 8:37 AM PACKING MACHINE FEEDER Bradycardia Abnormal electrocardiogram (ECG) (EKG) HOLTER MONITOR 24 HR Routine 01/01/2025 9:57 AM CDT Bradycardia NM MPI SPECT (REST AND/OR STRESS) MULTIPLE STUDIES Schedule Routine, Read Routine (OP Routine) 12/30/2024 12:54 PM CDT Chest pain, unspecified type CARDIOLOGY DOCUMENT SCAN Routine 12/21/2024 1:30 PM CDT CARDIOLOGY DOCUMENT SCAN Routine 12/20/2024 1:28 PM CDT PSA DIAGNOSTIC Routine 11/28/2022 9:36 AM CDT Malignant neoplasm of prostate (HCC) from Last 3 Months or Most Recently Relevant to Health Maintenance Results * TRANSTHORACIC ECHO (TTE) COMPLETE W DOPPLER/CF WO CONTRAST (01/07/2025 8:37 AM PACKING MACHINE FEEDER) Estimated EF 65-70 % CONS SCIMAGE EF Mod BP 68 % CONS SCIMAGE Anatomical Region Laterality Modality Ultrasound 01/07/2025 8:11 AM PACKING MACHINE FEEDER Narrative 01/07/2025 3:39 PM PACKING MACHINE FEEDER [facility] Cardiology [address], [address], [place] [address] [phone] P:[phone] Echocardiographic Report Patient Name: SUSAN LUKE K : 1960 Study Date: 01/07/2025 8:11:05 AM Sex: M Chief Drafter: ERNIE Location: [facility] Ref Provider: DEBBIE DILLARD Height(Cm): 183 BSA: 2.15 Weight(Kg): 90.7 Heart Rate: 83 BP: 138 / 72 Quality: Good Order Provider: DEBBIE DILLARD PROCEDURES: Echocardiographic Report: Transthoracic echocardiogram with complete 2D, M-Mode, and color Doppler examination. With Strain Analysis. INDICATIONS: R00.1 Bradycardia, unspecified and R94.31 Abnormal electrocardiogram (ECG) (EKG). MEASUREMENTS: 2D/MM Value Range Doppler Value Range EF Mod BP 68 % [ 52 - 72 ] ARI Vmax 3.16 cm2 [ 2.00 - 4.00 ] EF Teich MM 71 % [ 52 - 72 ] AV Mean PG 4 mmHg Estimated EF 65-70 % AV Peak Carlos 1.25 m/s [ 1.00 - 1.70 ] LV GLS -17.03 % AV Peak PG 6 mmHg LVIDd 2D 4.60 cm [ 4.20 - 5.80 ] AV VTI 27.53 cm LVIDd MM 5.33 cm [ 4.20 - 5.80 ] LVOT Diam 2.02 cm [ 1.70 - 2.10 ] LVIDs 2D 2.93 cm [ 2.50 - 4.00 ] LVOT Peak Carlos 1.24 m/s [ 0.70 - 1.10 ] LVIDs MM 3.17 cm [ 2.50 - 4.00 ] LVOT VTI 23.72 cm LVPWd 2D 1.35 cm [ 0.60 - 1.00 ] MV E Peak Carlos 0.77 m/s [ 0.60 - 1.30 ] LVPWd MM 1.04 cm [ 0.60 - 1.00 ] MV A Peak Carlos 0.86 m/s [ 1.00 - 1.20 ] IVSd 2D 1.32 cm [ 0.60 - 1.00 ] MV Decel Time 221 msec [ 104 - 258 ] IVSd MM 1.12 cm [ 0.60 - 1.00 ] PV Peak Carlos 0.92 m/s [ 0.40 - 0.80 ] LA Dimension MM 3.81 cm [ 3.00 - 4.00 ] TR Peak Carlos 2.12 m/s [ 1.00 - 2.80 ] AoR Diam MM 3.78 cm [ 3.10 - 3.70 ] TR Peak PG 18 mmHg LA Volume 54.26 ml [ 18.00 - 58.00 ] RVSP 26.00 mmHg [ 10.00 - 36.00 ] LA Volume Index 25 cc/m2 [ 16 - 28 ] RV S` 0.10 m/s ACS MM 2.48 cm [ 1.50 - 2.60 ] Lateral E` 0.05 m/s [ 0.10 - 0.15 ] RA Volume 29.40 ml Septal E` 0.05 m/s [ 0.08 - 0.15 ] E` 0.05 m/s E/E` 15 Tapse 1.98 cm [ 1.71 - 5.00 ] 2D/MM Value Range Doppler Value Range - FINDINGS: Interpretation Site: Exam was interpreted at [facility]. Left Ventricle: Normal left ventricular systolic function. No focal wall motion abnormalities. Normal left ventricular size. Moderate concentric left ventricular hypertrophy. Impaired diastolic relaxation Grade I. Ejection fraction is measured at 68 %. Ejection Fraction is visually estimated to be 65-70 %. Global Longitudinal Strain is -17 %. GLS is borderline. Right Ventricle: Normal right ventricular size. Normal right ventricular systolic function. Left Atrium: There is mild enlargement of left atrium. Right Atrium: The right atrium is normal in size. Atrial Septum: Normal atrial septum. Mitral Valve: Normal appearance of the mitral valve. Mild mitral valve regurgitation. There is no hemodynamically significant mitral stenosis by Doppler. Aortic Valve: No evidence of hemodynamically significant aortic stenosis by Doppler. Aortic cusps appear mildly sclerotic. Trileaflet aortic valve. Trace aortic valve regurgitation. Tricuspid Valve: Normal appearance of the tricuspid valve. Normal right ventricular systolic pressure. Estimated peak RVSP is 26 mmHg. Mild tricuspid regurgitation. Pulmonic Valve: Normal appearance of the pulmonic valve. No pulmonic stenosis. Mild pulmonic regurgitation. Pericardium: Normal pericardium with no significant pericardial effusion. Aorta: Sinus of Valsalva is mildly dilated. IVC: Normal size and normal respiratory collapse consistent with normal right atrial pressure (<5 mmHg). CONCLUSIONS: Normal left ventricular systolic function. No focal wall motion abnormalities. Normal left ventricular size. Moderate concentric left ventricular hypertrophy. Impaired diastolic relaxation Grade I. Ejection fraction is measured at 68 %. Ejection Fraction is visually estimated to be 65-70 %. Global Longitudinal Strain is -17 %. GLS is borderline. There is mild enlargement of left atrium. Mild mitral valve regurgitation. Mild tricuspid regurgitation. Mild pulmonic regurgitation. Sinus of Valsalva is mildly dilated. Normal sinus rhythm. Electronically Signed By: Ronan Narayanan MD 01/07/2025 3:39:07 PM PACKING MACHINE FEEDER Procedure Note Ronan Narayanan MD - 01/07/2025 [facility] Cardiology [address] [facility], [address], [place] [address] P:[phone] P:[phone] Echocardiographic Report Patient Name: SUSAN LUKE K : 1960 Study Date: 01/07/2025 8:11:05 AM Sex: M Chief Drafter: ERNIE Location: [facility] Ref Provider: DEBBIE DILLARD Height(Cm): 183 BSA: 2.15 Weight(Kg): 90.7 Heart Rate: 83 BP: 138 / 72 Quality: Good Order Provider: DEBBIE DILLARD PROCEDURES: Echocardiographic Report: Transthoracic echocardiogram with complete 2D, M-Mode, and color Dopplerexamination. With Strain Analysis. INDICATIONS: R00.1 Bradycardia, unspecified and R94.31 Abnormal electrocardiogram (ECG)(EKG). MEASUREMENTS: 2D/MM Value Range Doppler ValueRange EF Mod BP 68 % [ 52 - 72 ] ARI Vmax 3.16cm2 [ 2.00 - 4.00 ] EF Teich MM 71 % [ 52 - 72 ] AV Mean PG 4mmHg Estimated EF 65-70 % AV Peak Carlos 1.25m/s [ 1.00 - 1.70 ] LV GLS -17.03 % AV Peak PG 6mmHg LVIDd 2D 4.60 cm [ 4.20 - 5.80 ] AV VTI 27.53cm LVIDd MM 5.33 cm [ 4.20 - 5.80 ] LVOT Diam 2.02cm [ 1.70 - 2.10 ] LVIDs 2D 2.93 cm [ 2.50 - 4.00 ] LVOT Peak Carlos 1.24m/s [ 0.70 - 1.10 ] LVIDs MM 3.17 cm [ 2.50 - 4.00 ] LVOT VTI 23.72cm LVPWd 2D 1.35 cm [ 0.60 - 1.00 ] MV E Peak Carlos 0.77m/s [ 0.60 - 1.30 ] LVPWd MM 1.04 cm [ 0.60 - 1.00 ] MV A Peak Carlos 0.86m/s [ 1.00 - 1.20 ] IVSd 2D 1.32 cm [ 0.60 - 1.00 ] MV Decel Time 221msec [ 104 - 258 ] IVSd MM 1.12 cm [ 0.60 - 1.00 ] PV Peak Carlos 0.92m/s [ 0.40 - 0.80 ] LA Dimension MM 3.81 cm [ 3.00 - 4.00 ] TR Peak Carlos 2.12m/s [ 1.00 - 2.80 ] AoR Diam MM 3.78 cm [ 3.10 - 3.70 ] TR Peak PG 18mmHg LA Volume 54.26 ml [ 18.00 - 58.00 ] RVSP 26.00mmHg [ 10.00 - 36.00 ] LA Volume Index 25 cc/m2 [ 16 - 28 ] RV S` 0.10m/s ACS MM 2.48 cm [ 1.50 - 2.60 ] Lateral E` 0.05m/s [ 0.10 - 0.15 ] RA Volume 29.40 ml Septal E` 0.05m/s [ 0.08 - 0.15 ] E` 0.05 m/s E/E` 15 Tapse 1.98 cm [ 1.71 - 5.00 ] 2D/MM Value Range Doppler ValueRange - FINDINGS: Interpretation Site: Exam was interpreted at [facility]. Left Ventricle: Normal left ventricular systolic function. No focal wall motionabnormalities. Normal left ventricular size. Moderate concentric left ventricular hypertrophy.Impaired diastolic relaxation Grade I. Ejection fraction is measured at 68 %.Ejection Fraction is visually estimated to be 65-70 %. Global Longitudinal Strain is -17 %. GLSis borderline. Right Ventricle: Normal right ventricular size. Normal right ventricular systolicfunction. Left Atrium: There is mild enlargement of left atrium. Right Atrium: The right atrium is normal in size. Atrial Septum: Normal atrial septum. Mitral Valve: Normal appearance of the mitral valve. Mild mitral valve regurgitation.There is no hemodynamically significant mitral stenosis by Doppler. Aortic Valve: No evidence of hemodynamically significant aortic stenosis by Doppler.Aortic cusps appear mildly sclerotic. Trileaflet aortic valve. Trace aortic valveregurgitation. Tricuspid Valve: Normal appearance of the tricuspid valve. Normal right ventricularsystolic pressure. Estimated peak RVSP is 26 mmHg. Mild tricuspid regurgitation. Pulmonic Valve: Normal appearance of the pulmonic valve. No pulmonic stenosis. Mildpulmonic regurgitation. Pericardium: Normal pericardium with no significant pericardial effusion. Aorta: Sinus of Valsalva is mildly dilated. IVC: Normal size and normal respiratory collapse consistent with normal rightatrial pressure (<5 mmHg). CONCLUSIONS: Normal left ventricular systolic function. No focal wall motionabnormalities. Normal left ventricular size. Moderate concentric left ventricular hypertrophy.Impaired diastolic relaxation Grade I. Ejection fraction is measured at 68 %.Ejection Fraction is visually estimated to be 65-70 %. Global Longitudinal Strain is -17 %. GLSis borderline. There is mild enlargement of left atrium. Mild mitral valve regurgitation. Mild tricuspid regurgitation. Mild pulmonic regurgitation. Sinus of Valsalva is mildly dilated. Normal sinus rhythm. Electronically Signed By: Ronan Narayanan MD 01/07/2025 3:39:07 PM PACKING MACHINE FEEDER Debbie Dillard NP CV ECHO PROCEDURES Final Result * 24 HR Holter Monitor (01/01/2025 9:57 AM CDT) Anatomical Region Laterality Modality Electrocardiogra phy Narrative 01/06/2025 11:50 AM PACKING MACHINE FEEDER AMBULATORY BROOMMAKER REPORT Patient Name: Susan Luke Date of : 1960 Requesting Physician: Debbie Dillard NP Date of interpretation: 01/06/25 Type of monitor : Holter Date of the study/Enrollment period: 01/01/2025 - 01/02/2025 Indication: Bradycardia Quality of the study: Excellent Interpretation: The predominant rhythm is sinus with ventricular rates ranging from 41 beats per minute to 155 beats per minute. There were no significant pauses, atrial arrhythmias, or high-grade AV blocks. Ventricular ectopy burden less than 1%. Supraventricular ectopy burden less than 1%. Jasson Parsons MD 01/06/25 Voice recognition software was used to complete this document, therefore, shoemaking cutter variances may occur. Debbie Dillard NP CV CARDIAC SERVICES [facility] Final Result * NM MPI SPECT (Rest and/or Stress) Multiple Studies (12/30/2024 12:54 PM CDT) Anatomical Region Laterality Modality Body N/A Nuclear Medicine 12/30/2024 7:23 AM CDT Narrative 12/30/2024 4:11 PM CDT [facility] Cardiology [address] [facility] [address], [place] [address] [address] [facility] [address], [place] [address], [place] [address] [phone] P:[phone] MPI Imaging Report Patient Name: SUSAN LUKE K : 1960 Study Date: 12/30/2024 7:23:18 AM Sex: M Tech: [facility] Location: [facility] Provider: MILO HATCH Height(Cm): 182.8 BSA: Weight(Kg): 90 BMI: 26.93 Order Provider: MILO HATCH PHYSICIAN: Primary Care Physician: Dr. June. [facility] Physician: Milo Hatch M.D., F.A.C.C. Stress Supervision: Wiliam Narayanan M.D. Stress Interpreting Physician: Wiliam Narayanan M.D. PROCEDURES: Exercise SPECT Report: Myocardial perfusion imaging with Tc99m Sestamibi SPECT at rest and stress post exercise using the Ko protocol. INDICATIONS: Hypertension, Diabetes, High Cholesterol, and R07.9 Chest pain, unspecified. FINDINGS: Procedure: One day rest/stress protocol was used. Tc99m Sestamibi injected IV at rest was 11.1 millicuries 32.8 millicuries of Tc99m Sestamibi injected IV at peak stress Patient had no symptoms during stress test. Baseline heart rate was 80 BPM Peak heart rate was 171 BPM Max projected heart rate was 155 Percent predicted max heart rate achieved was 110 % Exercise Time 9:32 min Baseline blood pressure was 128/70 mmHg Peak blood pressure 168/84 mmHg Termination: Fatigue. Exercise Tolerance: Excellent for patient's age. Resting ECG: Normal sinus rhythm. RBBB. Post EC mm or more horizontal/downsloping lateral ST depression. Specificity of the observed ST changes is reduced in light of the abnormal resting ECG. Arrhythmia: Occasional APCs. Perfusion Findings: Abnormal perfusion imaging - see below. Technical quality of study is excellent. Prone imaging was not performed. Left ventricle cavity size at rest is normal. Left ventricle cavity size with stress is unchanged. A TID of 0.70 was automatically calculated. defect 1: Size is small. Severity is mild. Location of defect is in the basal anterior segment and mid anterior segment. Reversibility is full. Type of defect is ischemia. LV Function: Global left ventricular function is normal. Left Ventricular Ejection Fraction is 57 %. CONCLUSIONS: Myocardial perfusion imaging is abnormal. Size is small. Severity is mild. Location of defect is in the basal anterior segment and mid anterior segment. Reversibility is full. Type of defect is ischemia. 1 mm or more horizontal/downsloping lateral ST depression. Specificity of the observed ST changes is reduced in light of the abnormal resting ECG. Global left ventricular function is normal. Left Ventricular Ejection Fraction is 57 %. Excellent exercise capacity and no exercise induced chest pain. Electronically Signed By: Ronan Narayanan MD 12/30/2024 4:10:37 PM CDT Electronically Signed By: Ronan Narayanan MD 12/30/2024 4:10:37 PM CDT Procedure Note Ronan Narayanan MD - 12/30/2024 [facility] Cardiology [address] [facility] [address], [place] [address] [address] [facility] [id number], [place] [address] [address] [place] [address] P:[phone] P:[phone] MPI Imaging Report Patient Name: SUSAN LUKE K : 1960 Study Date: 12/30/2024 7:23:18 AM Sex: M Tech: [facility] Location: [facility] Provider: MILO HATCH Height(Cm): 182.8 BSA: Weight(Kg): 90 BMI: 26.93 Order Provider: MILO HATCH PHYSICIAN: Primary Care Physician: Dr. June. [facility] Physician: Milo Hatch M.D., F.A.C.C. Stress Supervision: Wiliam Narayanan M.D. Stress Interpreting Physician:Wiliam Narayanan M.D. PROCEDURES: Exercise SPECT Report: Myocardial perfusion imaging with Tc99m Sestamibi SPECT at rest and stresspost exercise using the Ko protocol. INDICATIONS: Hypertension, Diabetes, High Cholesterol, and R07.9 Chest pain,unspecified. FINDINGS: Procedure: One day rest/stress protocol was used. Tc99m Sestamibi injected IV at rest was 11.1 millicuries 32.8 millicuries of Tc99m Sestamibi injected IV at peak stress Patient had no symptoms during stress test. Baseline heart rate was 80 BPM Peak heart rate was 171 BPM Max projected heart rate was 155 Percent predicted max heart rate achieved was 110 % Exercise Time 9:32 min Baseline blood pressure was 128/70 mmHg Peak blood pressure 168/84 mmHg Termination: Fatigue. Exercise Tolerance: Excellent for patient's age. Resting ECG: Normal sinus rhythm. RBBB. Post EC mm or more horizontal/downsloping lateral ST depression. Specificity ofthe observed ST changes is reduced in light of the abnormal resting ECG. Arrhythmia: Occasional APCs. Perfusion Findings: Abnormal perfusion imaging - see below. Technical quality of study isexcellent. Prone imaging was not performed. Left ventricle cavity size at rest is normal.Left ventricle cavity size with stress is unchanged. A TID of 0.70 was automaticallycalculated. defect 1: Size is small. Severity is mild. Location of defect is in the basalanterior segment and mid anterior segment. Reversibility is full. Type of defect is ischemia. LV Function: Global left ventricular function is normal. Left Ventricular EjectionFraction is 57 %. CONCLUSIONS: Myocardial perfusion imaging is abnormal. Size is small. Severity is mild. Location of defect is in the basalanterior segment and mid anterior segment. Reversibility is full. Type of defect is ischemia. 1 mm or more horizontal/downsloping lateral ST depression. Specificity ofthe observed ST changes is reduced in light of the abnormal resting ECG. Global left ventricular function is normal. Left Ventricular EjectionFraction is 57 %. Excellent exercise capacity and no exercise induced chest pain. Electronically Signed By: Ronan Narayanan MD 12/30/2024 4:10:37 PM CDT Electronically Signed By: Ronan Narayanan MD 12/30/2024 4:10:37 PM CDT Milo Hatch MD IMG NM PROCEDURES Final Result * Cardiology Document Scan (12/21/2024 1:30 PM CDT) Anatomical Region Laterality Modality Other Milo Hatch MD CV CARDIAC SERVICES PROCEDURES F inal Result * Cardiology Document Scan (12/20/2024 1:28 PM CDT) Anatomical Region Laterality Modality Other Milo Hatch MD CV CARDIAC SERVICES PROCEDURES F inal Result * PSA diagnostic (11/28/2022 9:36 AM CDT) [...] 9:36 AM CDT 11/28/2022 10:07 AM CDT Result [facility] Andrei Chavez MD LAB BLOOD ORDERABLES Fi nal Result [facility] [id number] [place] [address] from Last 3 Months or Most Recently Relevant to Health Maintenance Insurance [employer] MEDICARE [employer] [place] Advance Directives For more information, please contact: [phone] * Full Code (Latest Code Status on File) Date Activated Date Inactivated Comments 05/01/2019 2:19 PM 05/02/2019 5:56 PM Care Teams Traffic Administrator Relationship Specialty Start Date End Date Joseph June MD PCP - General Family Medicine 03/17/19
--- OUTSIDE RECORDS SUMMARY | 2025-01-09 18:17 | XMS_ITS | Clinical Summary ---
Author Organization [facility] Care Team Providers Care Office Nurse Practitioner Name Role Phone Unavailable Primary Care Provider [...]
--- OUTSIDE RECORDS SUMMARY | 2025-01-09 18:17 | XMS_ITS | Clinical Summary ---
Author Organization [facility] Address [address] [place] [address] Care Team Providers Care Business Controller Name Role Phone Unavailable Primary Care Provider Unavailabl e Immunizations Immunization Administration Dates Next Due MODERNA COVID-19 (12+) MRNA, LNP-S, PF, 100 MCG/ 0.5 ML DOSE 04/20/2020,03/23/2020 Social History Tobacco Use Types Packs/Day Years Used Date Smoking Tobacco: Never Assessed Sex and Gender Information Value Date Recorded Sex Assigned at Not on file Legal Sex Male 11:05 AM BLOCKER HEATED METAL FORMS Gender Identity Not on file Sexual Orientation Not on file Plan of Treatment Health Maintenance Due Date Last Done Comments Colorectal Cancer Screening Colonoscopy (10 Years) 1960 Hepatitis C 1977 DTaP, Tdap and Td Vaccines ( 1 - Tdap) 1978 Pneumococcal Vaccine: 50+ Years (1 of 1 - PCV) 2009 Zoster Vaccines (1 of 2) 2009 COVID-19 Vaccine (3 - 2024-2 6 season) 2024 04/20/2020, 03/23/2020 Influenza Adult (#1) 2024 02/04/2020 RSV Immunization or 60+ Years (1 - 1-dose 75+ series) 2034 Hepatitis A Vaccines Aged Out No long er eligible based on patient's age to complete this topic Meningococcal B Vaccine Aged Out No l onger eligible based on patient's age to complete this topic Meningococcal Vaccine Aged Out No shahida ignacio eligible based on patient's age to complete this topic RSV Immunizations Under 20 Months Aged Out No longer eligible b ased on patient's age to complete this topic
--- OUTSIDE RECORDS SUMMARY | 2025-01-09 18:17 | XMS_ITS | Encounter Summary ---
Author Organization [facility] Healthcare Address [address] [place] [address] Care Team Providers Care Computer Operations Supervisor Name Role Phone Joseph Juen MD Primary Care Provider [phone] Encounter Details Date Type Department Care Team (Late st Contact Info) Description 01/08/2025 Telephone [facility] Medical Group Cardiology [address] [place] [phone] Milo Gonzalez MD [address] [facility] BLD[address] C [address] [facility] C, [address] [place] [address] Social History Tobacco Use Types Packs/Day Years Used Date Smoking Tobacco: Never Smokeless Tobacco: Never Alcohol Use Standard Drinks/Week Comments Yes 3 (1 standard drink = 0.6 oz pur e alcohol) Sex and Gender Information Value Date Recorded Sex Assigned at Not on file Legal Sex Male 3:00 PM FARM MACHINE TENDER Gender Identity Male 11/16/2020 8:41 AM CDT Sexual Orientation Straight 11/16/2020 8: 41 AM CDT documented as of this encounter Miscellaneous Notes * Telephone Encounter - Keya Patel RN - 01/08/2025 4:12 PM FARM MACHINE TENDER Spoke with pt, reviewed result note from CT regarding Echocardiogram. There was previous messages regarding setting pt up for a cardiac cath. Pt was concerned that there were new findings. Advised ptthat it was recommended by DK that if pt was having symptoms and could not wait for his CTA on we could schedule him for a LHC. Pt denies any ongoing symptoms and has rescheduled his CTA to 01/19. Pt will keep his appt for CTA on 01/19 and call with any further questions or concerns. MACHINE TENDER * Telephone Encounter - Shelli Moser - 01/08/2025 1:45 PM CST Pt states that he he would like to discuss cardiac cath and options with DK. Requesting a call back. Please advise. Thank you. Contact [phone] MACHINE TENDER * Telephone Encounter - Brooke Scott RN - 01/08/2025 10:50 AM CST Spoke with pt. Discussed note from DK. Pt will continue with CTA scheduled for 01/19 and f/u appt with DK on 01/21 before scheduling Cardiac Cath. Will discuss further with DK during appt. MACHINE TENDER documented in this encounter Plan of Treatment Not on file documented as of this encounter Visit Diagnoses Not on filedocumented in this encounter Care Teams Computer Operations Supervisor Relationship Specialty Start Date End Date Joseph June MD PCP - General Family Medicine 03/17/19 documented as of this encounter
--- OUTSIDE RECORDS SUMMARY | 2025-01-09 18:17 | XMS_ITS | Encounter Summary ---
Author Organization [facility] Healthcare Address [address] [place] [address] Care Team Providers Care Disability Aide Name Role Phone Joseph June MD Primary Care Provider [phone] Encounter Details Date Type Department Care Team (Late st Contact Info) Description 01/06/2025 Results Follow-Up [facility] Medical Group Cardiology [address] [facility] [address] [place] [address] Debbie Stephenson NP [address] [place] [address] 24 HR Holter Monitor, Transthoracic Echo (TTE) Complete W Doppler/CF Social History Tobacco Use Types Packs/Day Years Used Date Smoking Tobacco: Never Smokeless Tobacco: Never Alcohol Use Standard Drinks/Week Comments Yes 3 (1 standard drink = 0.6 oz pur e alcohol) Sex and Gender Information Value Date Recorded Sex Assigned at Not on file Legal Sex Male 3:00 PM CREDIT VERIFIER Gender Identity Male 11/16/2020 8:41 AM CDT Sexual Orientation Straight 11/16/2020 8: 41 AM CDT documented as of this encounter Miscellaneous Notes * Telephone Encounter - Shelli Moser - 01/06/2025 1:48 PM CST Pt returning call regarding his monitor results. Reviewed the below message from CT and pt verbalized understanding. Thank you. Contact [phone] IT VERIFIER * Telephone Encounter - Wanda Johnston RN - 01/06/2025 12:55 PM CREDIT VERIFIER LM for pt reviewing results, instructed to call with any questions or concerns. IT VERIFIER documented in this encounter Plan of Treatment Not on file documented as of this encounter Visit Diagnoses Not on filedocumented in this encounter Care Teams Disability Aide Relationship Specialty Start Date End Date Joseph June MD PCP - General Family Medicine 03/17/19 documented as of this encounter
--- OUTSIDE RECORDS SUMMARY | 2025-01-09 18:17 | XMS_ITS | Clinical Summary ---
Author Organization [facility] Address [address] [facility] [place] [address] Care Team Providers Care Maintainer Operator Name Role Phone Joseph June MD Primary Care Provider [phone] Source Comments [facility],non-owned Affiliates and Associated Physician Practices is amultiple site organization consisting of ambulatory clinics and hospital sitesin [place], [place], [place] and [place]. This disclosure is being madepursuant to the Care Everywhere program and may not contain all information available regarding this patient. Last updated 17.[facility] Allergies No known active allergies Medications * Be aware that medications may not be up to date on this document. Alwaysverify current medications with the patient. LOSARTAN POTASSIUM PO Active LISINOPRIL PO Active Social History Tobacco Use Types Packs/Day Years Used Date Smoking Tobacco: Never Sex and Gender Information Value Date Recorded Sex Assigned at Not on file Legal Sex Male 6:02 AM MIRROR INSTALLER Gender Identity Not on file Sexual Orientation Not on file Last Filed Vital Signs Vital Sign Reading Time Taken Comments Blood Pressure 142/88 03/28/2016 3:02 PM MIRROR INSTALLER Pulse 86 03/28/2016 2:42 PM MIRROR INSTALLER Temperature 39.4 C (102.9 F) 03/28/2016 2:42 PM MIRROR INSTALLER Respiratory Rate 16 03/28/2016 2:42 PM MIRROR INSTALLER Oxygen Saturation 94% 03/28/2016 2:42 PM MIRROR INSTALLER Inhaled Oxygen Concentration - - Weight 97.5 kg (215 lb) 03/28/2016 2:42 PM MIRROR INSTALLER Height 182.9 cm (6') 03/28/2016 2:42 PM MIRROR INSTALLER Body Mass Index 29.16 03/28/2016 2:42 PM MIRROR INSTALLER Plan of Treatment Health Maintenance Due Date [...] age to complete this topic Insurance [employer]NA [facility] Care Teams Maintainer Operator Relationship Specialty Start Date End Date Joseph June MD [address] [place] [address] [place] [phone] PCP - General Family Medicine 03/28/16
[2025-01-09 18:46] VITALS: BP 153/83; PULSE 82; RESP 15; TEMP 37.1; O2SAT 96
--- OUTSIDE RECORDS SUMMARY | 2025-01-09 18:53 | XMS_ITS | Encounter Summary ---
Author Organization [facility] Healthcare Address [address] [place] [address] Care Team Providers Care Internal Grinder Tender Name Role Phone Joseph June MD Primary Care Provider [phone] Encounter Details Date Type Department Care Team (Late st Contact Info) Description 01/06/2025 Results Follow-Up [facility] Medical Group Cardiology [address] [email or web address] [address] [place] [address] Debbie Stephenson NP [address] [place] [address] 24 HR Holter Monitor, Transthoracic Echo (TTE) Complete W Doppler/CF Social History Tobacco Use Types Packs/Day Years Used Date Smoking Tobacco: Never Smokeless Tobacco: Never Alcohol Use Standard Drinks/Week Comments Yes 3 (1 standard drink = 0.6 oz pur e alcohol) Sex and Gender Information Value Date Recorded Sex Assigned at Not on file Legal Sex Male 3:00 PM GEOLOGICAL SCOUT Gender Identity Male 11/16/2020 8:41 AM CDT Sexual Orientation Straight 11/16/2020 8: 41 AM CDT documented as of this encounter Miscellaneous Notes * Telephone Encounter - Shelli Moser - 01/06/2025 1:48 PM CST Pt returning call regarding his monitor results. Reviewed the below message from CT and pt verbalized understanding. Thank you. Contact [phone] OGICAL SCOUT * Telephone Encounter - Wanda Johnston RN - 01/06/2025 12:55 PM GEOLOGICAL SCOUT LM for pt reviewing results, instructed to call with any questions or concerns. OGICAL SCOUT documented in this encounter Plan of Treatment Not on file documented as of this encounter Visit Diagnoses Not on filedocumented in this encounter Care Teams Internal Grinder Tender Relationship Specialty Start Date End Date Joseph June MD PCP - General Family Medicine 03/17/19 documented as of this encounter
--- OUTSIDE RECORDS SUMMARY | 2025-01-09 18:53 | XMS_ITS | Clinical Summary ---
Author Organization [facility] Address [address] [place] [address] Care Team Providers Care Service Engine Repairer Name Role Phone Joseph June MD Primary Care Provider [phone] Source Comments [facility],non-owned Affiliates and Associated Physician Practices is amultiple site organization consisting of ambulatory clinics and hospital sitesin [place], [place], [place] and [place]. This disclosure is being madepursuant to the Care Everywhere program and may not contain all information available regarding this patient. Last updated 17.[facility] Allergies No known active allergies Medications * Be aware that medications may not be up to date on this document. Alwaysverify current medications with the patient. LOSARTAN POTASSIUM PO Active LISINOPRIL PO Active Social History Tobacco Use Types Packs/Day Years Used Date Smoking Tobacco: Never Sex and Gender Information Value Date Recorded Sex Assigned at Not on file Legal Sex Male 6:02 AM SYSTEMS DEVELOPER Gender Identity Not on file Sexual Orientation Not on file Last Filed Vital Signs Vital Sign Reading Time Taken Comments Blood Pressure 142/88 03/28/2016 3:02 PM SYSTEMS DEVELOPER Pulse 86 03/28/2016 2:42 PM SYSTEMS DEVELOPER Temperature 39.4 C (102.9 F) 03/28/2016 2:42 PM SYSTEMS DEVELOPER Respiratory Rate 16 03/28/2016 2:42 PM SYSTEMS DEVELOPER Oxygen Saturation 94% 03/28/2016 2:42 PM SYSTEMS DEVELOPER Inhaled Oxygen Concentration - - Weight 97.5 kg (215 lb) 03/28/2016 2:42 PM SYSTEMS DEVELOPER Height 182.9 cm (6') 03/28/2016 2:42 PM SYSTEMS DEVELOPER Body Mass Index 29.16 03/28/2016 2:42 PM SYSTEMS DEVELOPER Plan of Treatment Health Maintenance Due Date [...] age to complete this topic Insurance AETNA [facility] Care Teams Service Engine Repairer Relationship Specialty Start Date End Date Joseph June MD [address] [place] [address] [place] [phone] PCP - General Family Medicine 03/28/16
--- OUTSIDE RECORDS SUMMARY | 2025-01-09 18:53 | XMS_ITS | Clinical Summary ---
Author Organization [facility] Address [address] [place] [address] Care Team Providers Care Conflict Resolution Professional Name Role Phone Unavailable Primary Care Provider Unavailabl e Immunizations Immunization Administration Dates Next Due MODERNA COVID-19 (12+) MRNA, LNP-S, PF, 100 MCG/ 0.5 ML DOSE 04/20/2020,03/23/2020 Social History Tobacco Use Types Packs/Day Years Used Date Smoking Tobacco: Never Assessed Sex and Gender Information Value Date Recorded Sex Assigned at Not on file Legal Sex Male 11:05 AM SUPERVISOR BRAIDING Gender Identity Not on file Sexual Orientation [...]
--- OUTSIDE RECORDS SUMMARY | 2025-01-09 18:53 | XMS_ITS | Encounter Summary ---
Author Organization [facility] Healthcare Address [address] [place] [address] Care Team Providers Care Multiple Coil Winder Name Role Phone Joseph June MD Primary Care Provider [phone] Encounter Details Date Type Department Care Team (Late st Contact Info) Description 01/08/2025 Telephone [facility] Medical Group Cardiology [address] [place] [phone] Milo Gonzalez MD [address] [facility] [address] [facility] C, [address] [place] [address] Social History Tobacco Use Types Packs/Day Years Used Date Smoking Tobacco: Never Smokeless Tobacco: Never Alcohol Use Standard Drinks/Week Comments Yes 3 (1 standard drink = 0.6 oz pur e alcohol) Sex and Gender Information Value Date Recorded Sex Assigned at Not on file Legal Sex Male 3:00 PM HELICOPTER CREW CHIEF Gender Identity Male 11/16/2020 8:41 AM CDT Sexual Orientation Straight 11/16/2020 8: 41 AM CDT documented as of this encounter Miscellaneous Notes * Telephone Encounter - Keya Patel RN - 01/08/2025 4:12 PM HELICOPTER CREW CHIEF Spoke with pt, reviewed result note from [...] call with any further questions or concerns. COPTER CREW CHIEF * Telephone Encounter - Shelli Moser - 01/08/2025 1:45 PM CST Pt states that he he would like to discuss cardiac cath and options with DK. Requesting a call back. Please advise. Thank you. Contact [phone] COPTER CREW CHIEF * Telephone Encounter - Brooke Scott RN - 01/08/2025 10:50 AM CST Spoke with pt. Discussed note from DK. Pt will continue with CTA scheduled for 01/19 and f/u appt with DK on 01/21 before scheduling Cardiac Cath. Will discuss further with DK during appt. COPTER CREW CHIEF documented in this encounter Plan of Treatment Not on file documented as of this encounter Visit Diagnoses Not on filedocumented in this encounter Care Teams Multiple Coil Winder Relationship Specialty Start Date End Date Joseph June MD PCP - General Family Medicine 03/17/19 documented as of this encounter
--- OUTSIDE RECORDS SUMMARY | 2025-01-09 18:54 | XMS_ITS | Clinical Summary ---
Author Organization [facility] Care Team Providers Care Local Company Tanker Driver Name Role Phone Unavailable Primary Care Provider [...]
--- OUTSIDE RECORDS SUMMARY | 2025-01-09 18:54 | XMS_ITS | Clinical Summary ---
Author Organization [facility] Address [address] [place] [address] Care Team Providers Care Area Operations Manager Name Role Phone Joseph June MD Primary Care Provider [phone] Allergies No known active allergies Medications olmesartan-amL [...] (04/03/2019): Added automatically from request for surgery [id number] Encounters Date Type Department Care Team Description 01/08/2025 Telephone [facility] Medical Group Cardiology [address] [place] [address] [place] [address] [place] [address] Milo Hatch MD 01/07/2025 8:15 AM DISABILITY RATER Ancillary Procedure [facility] Cardiology at [address] [place] [address] Bradycardia; Abnormal electrocardiogram (ECG) (EKG) 01/06/2025 Results Follow-Up [facility] Cardiology [address] [place] [address] [place] [phone] Debbie Dillard NP 24 HR Holter Monitor, Transthoracic Echo (TTE) Complete W Doppler/CF 01/01/2025 11:25 AM CDT Ancillary Procedure [place] [address] [place] [phone] Bradycardia 01/01/2025 9:00 AM CDT Office Visit [place] [address] [place] [phone] Debbie Dillard NP Bradycardia (Primary Dx); Abnormal electrocardiogram (ECG) (EKG); Abnormal nuclear stress test; Abnormal findings on diagnostic imaging of heart and coronary circulation; Chest discomfort; Hyperlipidemia associated with type 2 diabetes mellitus (HCC); Essential hypertension; Hospital discharge follow-up 01/01/2025 Telephone [place] [address] [place] [phone] Debbie Dillard NP Test Results 12/30/2024 10:15 AM CDT Ancillary Procedure [place] [address] [place] [phone] Chest pain, unspecified type 12/26/2024 Telephone [place] [address] [place] [phone] Debbie Dillard NP HFU; stress test order 12/24/2024 Orders Only [place] [address] [place] [phone] Milo Hatch MD from Last 3 Months [...] on file Legal Sex Male 3:00 PM DISABILITY RATER Gender Identity Male 11/16/2020 8:41 AM CDT Sexual Orientation Straight 11/16/2020 8: 41 AM CDT Last Filed Vital Signs Vital Sign Reading Time Taken Comments Blood Pressure 138/72 01/01/2025 9:07 AM CDT Pulse 86 01/01/2025 9:07 AM CDT Temperature 36.7 C (98 F) 11/29/2021 8:34 AM CDT Respiratory Rate 16 05/02/2019 8:01 AM DISABILITY RATER Oxygen Saturation 98% 01/01/2025 9:07 AM CDT [...] DOPPLER/CF WO CONTRAST Routine 01/07/2025 8:37 AM DISABILITY RATER Bradycardia Abnormal electrocardiogram (ECG) (EKG) HOLTER MONITOR [...] W DOPPLER/CF WO CONTRAST (01/07/2025 8:37 AM DISABILITY RATER) Estimated EF 65-70 % CONS SCIMAGE EF Mod BP 68 % CONS SCIMAGE Anatomical Region Laterality Modality Ultrasound 01/07/2025 8:11 AM DISABILITY RATER Narrative 01/07/2025 3:39 PM DISABILITY RATER [facility] Medical Group Cardiology [address], [address], [place] [address] [phone] P:[phone] Echocardiographic Report Patient Name: SUSAN LUKE K : 1960 Study Date: 01/07/2025 8:11:05 AM Sex: M Telephone Solicitor Supervisor: ERNIE Location: [facility] Ref Provider: DEBBIE DILLARD [...] FINDINGS: Interpretation Site: Exam was interpreted at [facility]. Left Ventricle: Normal left ventricular systolic function. [...] By: Ronan Narayanan MD 01/07/2025 3:39:07 PM DISABILITY RATER Procedure Note Ronan Narayanan MD - 01/07/2025 [facility] Medical Group Cardiology [address] [facility], [address], [place] [address] P:[phone] P:[phone] Echocardiographic Report Patient Name: SUSAN LUKE K : 1960 Study Date: 01/07/2025 8:11:05 AM Sex: M Telephone Solicitor Supervisor: ERNIE Location: [facility] Ref Provider: DEBBIE DILLARD [...] FINDINGS: Interpretation Site: Exam was interpreted at [facility]. Left Ventricle: Normal left ventricular systolic function. [...] By: Ronan Narayanan MD 01/07/2025 3:39:07 PM DISABILITY RATER Debbie Dillard NP CV ECHO PROCEDURES Final Result * 24 HR Holter Monitor (01/01/2025 9:57 AM CDT) Anatomical Region Laterality Modality Electrocardiogra phy Narrative 01/06/2025 11:50 AM DISABILITY RATER AMBULATORY ORACLE R12 DEVELOPER REPORT Patient Name: Susan Luke Date of [...] was used to complete this document, therefore, liquid sugar fortifier variances may occur. Debbie Dillard NP CV CARDIAC SERVICES [facility] Final Result * NM MPI SPECT (Rest and/or Stress) Multiple Studies (12/30/2024 12:54 PM CDT) Anatomical Region Laterality Modality Body N/A Nuclear Medicine 12/30/2024 7:23 AM CDT Narrative 12/30/2024 4:11 PM CDT [facility] Medical Group Cardiology [address] [facility] [address], [place] [address] [address] [facility] [address], [place] [address], [place] [address] P:[phone] P:[phone] MPI Imaging Report Patient Name: SUSAN LUKE K : 1960 Study Date: 12/30/2024 7:23:18 AM Sex: M Tech: [facility] Location: [facility] Provider: MILO HATCH Height(Cm): 182.8 BSA: Weight(Kg): 90 BMI: 26.93 Order Provider: MILO HATCH PHYSICIAN: Primary Care Physician: Dr. June. [facility] Physician: Milo Hatch M.D., F.A.C.C. Stress Supervision: [...] Procedure Note Ronan Narayanan MD - 12/30/2024 [facility] Medical Group Cardiology [address] [facility] [address], [place] [address] [address] [facility] [address], [place] [address] [address] [place] [address] P:[phone] P:[phone] MPI Imaging Report Patient Name: SUSAN LUKE K : 1960 Study Date: 12/30/2024 7:23:18 AM Sex: M Tech: [facility] Location: [facility] Provider: MILO HATCH Height(Cm): 182.8 BSA: Weight(Kg): 90 BMI: 26.93 Order Provider: MILO HATCH PHYSICIAN: Primary Care Physician: Dr. June. [facility] Physician: Milo Hatch M.D., F.A.C.C. Stress Supervision: [...] AM CDT 11/28/2022 10:07 AM CDT Result [facility] Andrei Chavez MD LAB BLOOD ORDERABLES Fi nal Result [facility] [address] Department [place] [address] from Last 3 Months or Most Recently Relevant to Health Maintenance Insurance AARP MEDICARE [employer] [place] Advance Directives For more information, please contact: [phone] * Full Code (Latest Code Status on File) Date Activated Date Inactivated Comments 05/01/2019 2:19 PM 05/02/2019 5:56 PM Care Teams Area Operations Manager Relationship Specialty Start Date End Date Joseph June MD PCP - General Family Medicine 03/17/19
[2025-01-09 18:56] LABS: Hematocrit 36.6 % (42.0-52.0); Hemoglobin 11.7 g/dL (14.0-18.0); Immature Granulocyte Percent A 0.2 % (0-0.5); Lymphocytes Absolute Auto 2.12 K/mm3 (0.9-3.2); Mean Corpuscular HGB Conc 32.0 g/dl (32-36); Mean Corpuscular Hemoglobin 26.1 pg (26-34); Mean Corpuscular Volume 81.7 fl (80-100); Nucleated Red Blood Cells Absolute Auto 0.000 K/mm3 (0.0-0.012); Nucleated Red Blood Cells Perc 0.0 % (0.0-0.2); Platelet Count Result 281 k/mm3 (150-375); Red Blood Count 4.48 M/mm3 (4.6-6.20); White Blood Count 6.1 K/mm3 (4.5-10.0)
[2025-01-09 19:08] LABS: INR 0.9; Partial Thromboplastin Time 29.7 Seconds (22.3-36.8); Prothrombin Time 12.1 Seconds (11.1-14.7)
[2025-01-09] MEDS: ASPIRIN 81 MG CHEWABLE TABLET 324 MG PO (19:20)
[2025-01-09 19:40] LABS: Alanine Aminotransferase 35 U/L (6-50); Albumin Level 4.5 g/dL (3.5-5.1); Alkaline Phosphatase 74 U/L (38-126); Anion Gap 10 mmol/L (4-12); Aspartate Amino Transferase 38 U/L (17-59); Bilirubin,Total 0.2 mg/dL (0.2-1.3); Blood Urea Nitrogen 14 mg/dL (9-20); Calcium 9.1 mg/dL (8.4-10.2); Carbon Dioxide 27 mmol/L (22-30); Chloride 100 mmol/L (98-107); Estimated CRCL calculation 77 ml/min; Estimated Glomerular Filt Rate > 60; Glucose 167 mg/dL (65-110); Lipase 78 U/L (23-300); Potassium 3.6 mmol/L (3.4-5.0); Sodium 137 mmol/L (137-145); Total Protein 7.7 g/dL (6.3-8.2)
[2025-01-09 19:48] LABS: Troponin I < 0.012 ng/mL (0.000-0.034)
--- NOTE | 2025-01-09 21:06 | ECG_ITS ---
Test Date: 2025-01-09 21:06:30 Measurements Intervals [place] Rate: 74 P: 44 DE: 206 QRS: -18 QRSD: 154 T: 22 QT: 379 QTc: 422 Interpretive Statements SINUS RHYTHM RIGHT BUNDLE BRANCH BLOCK [120+ ms QRS DURATION, UPRIGHT V1, 40+ ms S IN I/aVL/V4/V5/V6] VOLTAGE CRITERIA FOR LVH [MEETS CRITERIA IN ONE OF: R(aVL), S(V1), R(V5), R(V5/V6)+S(V1)] ABNORMAL ECG Compared to ECG 01/09/2025 18:37:16 No significant changes Electronically Signed On 01-10-2025 08:30:42 ECOMMERCE MERCHANDISING MANAGER by Ronan Narayanan M.D.
[2025-01-09 21:29] LABS: Troponin I < 0.012 ng/mL (0.000-0.034)
--- NOTE | 2025-01-09 21:36 | ED.CHESTPAIN ---
HPI - Chest Pain General Chief Complaint: Chest Pain Stated Complaint: chest pain Time Seen by Provider: 01/09/25 18:37 Source: patient Mode of arrival: ambulatory Limitations: no limitations History of Present Illness HPI narrative: 64-year-old with a history of hypertension, diabetes, hyperlipidemia presents with the complaints of sharp shooting chest pain since this morning. Patient states that of by the time he came to the ER it is dull in nature. He denies any shortness of breath. Patient states that he was recently admitted to the hospital had a cardiac evaluation for low heart rate. MD complaint: chest pain Onset (ago): day(s) (1) Timing of current episode: constant Prior episodes: No Pain location: left chest Pain radiation: none Severity: mild Quality: sharp Relieving factors: nothing Exacerbating factors: nothing Related Data Home Medications ?Medication ?Instructions ?Recorded ?Confirmed ?Last Taken ?Type metformin 500 mg tablet 500 mg PO BID 09/15/24 12/19/24 12/19/24 09:00 History 500 mg olmesartan 20 mg-amlodipine 5 1 tablet PO DAILY 09/15/24 12/19/24 12/19/24 09:00 History mg-hydrochlorothiazide 12.5 mg 1 tablet tablet rosuvastatin 10 mg tablet 10 mg PO DAILY 09/15/24 12/19/24 12/19/24 09:00 History 10 mg valacyclovir 1 gram tablet 1,000 mg PO PRN PRN outbreak 09/15/24 12/19/24 Unknown History Allergies Allergy/AdvReac Type Severity Reaction Status Date / Time No Known Allergies Allergy Unknown Verified 01/09/25 18:57 Review of Systems Review of Systems: All systems reviewed & are unremarkable except as noted in HPI and below Constitutional: Constitutional: Reports no additional constitutional complaints Eyes: Eyes: Reports no additional eye complaints ENT: Reports system reviewed and no additional complaints, except as documented Cardiovascular: Cardiovascular: Reports as per HPI Respiratory: Respiratory: Reports no additional respiratory complaints Genitourinary: Genitourinary: Reports no additional male genitourinary complaints Musculoskeletal: Musculoskeletal: Reports no additional musculoskeletal complaints Integumentary/Breasts: Skin/Breast: Reports system reviewed and no additional complaints, except as docu PMFSH Past Medical History Medical History Hyperlipidemia Diabetes Family History Family History Mother Family history of malignant neoplasm Father Family history of malignant neoplasm Social History Social History Alcohol intake: never Substance use: never Lack of Transportation: No Lack of Food: Never True Current Housing: I Have Housing Concerned About Future Housing: No Difficulty Paying Gas/Electric Bills: No Difficulty Paying for Meds: No Currently Unemployed: No Education: Decline to Answer Difficulty w/ Childcare or Family Care: No Spiritual care concerns: No Exam Narrative: GENERAL: Well-appearing, well-nourished, and in no acute distress. HEAD: Normocephalic, atraumatic. EYES: PERRLA and EOMI. ENT: Nares clear, no rhinorrhea or epistaxis. Mucous membranes moist. NECK: Supple. CHEST: Clear to auscultation. No respiratory distress. HEART: Regular rate and rhythm. No murmur heard. Normal peripheral pulses. ABDOMEN: Soft, nontender, nondistended, normal active bowel sounds. EXTREMITIES: Normal range of motion. No edema. SKIN: Warm, dry, no rash. NEURO: No focal deficits. Alert and oriented x3. PSYCH: Normal mood and affect. Course Course Emergency Course: Patient remained almost pain free. Informed him about her lab work, EKG and chest x-ray findings. Patient she advised to continue home medication, follow-up with her primary doctor Vital Signs Vital signs: Vital Signs Temperature 36.8 C 01/09/25 18:17 Pulse Rate 96 01/09/25 18:17 Respiratory Rate 16 01/09/25 18:17 Blood Pressure 156/80 H 01/09/25 18:17 Pulse Oximetry 98 01/09/25 18:17 Temperature 37.1 C 01/09/25 18:46 Pulse Rate 82 01/09/25 18:46 Respiratory Rate 15 01/09/25 18:46 Blood Pressure 153/83 H 01/09/25 18:46 Pulse Oximetry 96 01/09/25 18:46 Oxygen Delivery Room Air 01/09/25 18:55 MDM - Chest Pain Differential Diagnosis Differential diagnosis: Likely unstable angina pectoris, atypical chest pain, costochondritis and chest pain Medical Records Data Attestation: I reviewed the patient's medical records. Lab Data Attestation: I reviewed the patient's lab results. 01/09/25 18:50 01/09/25 18:50 Labs: Lab Results 01/09/25 01/09/25 Range/Units 18:50 21:01 WBC 6.1 (4.5-10.0) K/mm3 RBC 4.48 L (4.6-6.20) M/mm3 Hgb 11.7 L (14.0-18.0) g/dL Hct 36.6 L (42.0-52.0) % MCV 81.7 (80-100) fl MCH 26.1 (26-34) pg MCHC 32.0 (32-36) g/dl RDW 14.4 (11.5-14.5) % Plt Count 281 (150-375) k/mm3 MPV 9.7 (7.4-10.4) fl Immature Gran % (Auto) 0.2 (0-0.5) % Neut % (Auto) 49.8 (45.5-73.1) % Lymph % (Auto) 35.0 (18.3-44.2) % Island % (Auto) 6.8 (2.6-8.5) % Eos % (Auto) 7.4 H (0-4.4) % Baso % (Auto) 0.8 (0.2-1.2) % Lymph # (Auto) 2.12 (0.9-3.2) K/mm3 Island # (Auto) 0.4 (0.1-0.6) K/mm3 Eos # (Auto) 0.5 H (0-0.3) K/mm3 Baso # (Auto) 0.1 (0.0-0.1) K/mm3 Abs Immat Gran (auto) 0.01 (0.00-0.031) K/mm3 Absolute Neuts (auto) 3.0 (1.3-6.7) K/mm3 Absolute Nucleated RBC 0.000 (0.0-0.012) K/mm3 Nucleated RBC % 0.0 (0.0-0.2) % PT 12.1 (11.1-14.7) Seconds INR 0.9 APTT 29.7 (22.3-36.8) Seconds D-Dimer 0.29 (<0.48) ug/mL Sodium 137 (137-145) mmol/L Potassium 3.6 (3.4-5.0) mmol/L Chloride 100 (98-107) mmol/L Carbon Dioxide 27 (22-30) mmol/L Anion Gap 10 (4-12) mmol/L BUN 14 (9-20) mg/dL Creatinine 0.92 (0.7-1.3) mg/dL Estim Creat Clear Calc 77 ml/min Estimated GFR > 60 (59 - ) Glucose 167 H (65-110) mg/dL Calcium 9.1 (8.4-10.2) mg/dL Total Bilirubin 0.2 (0.2-1.3) mg/dL AST 38 (17-59) U/L ALT 35 (6-50) U/L Alkaline Phosphatase 74 (38-126) U/L Troponin I < 0.012 < 0.012 (0.000-0.034) ng/mL Total Protein 7.7 (6.3-8.2) g/dL Albumin 4.5 (3.5-5.1) g/dL Lipase 78 (23-300) U/L Imaging Data Radiologist's impression: ITS Impressions Chest X-Ray 01/09/25 19:02 IMPRESSION: 1: NO ACUTE CARDIOPULMONARY DISEASE. ECG Data EKG #1: ECG completion date: 01/09/25 ECG completion time: 18:37 EKG Interpretation: normal rate (82), sinus rhythm, no ectopy, no ST changes, normal QRS, RBBB and normal QT EKG #2: ECG completion date: 01/09/25 ECG completion time: 21:06 EKG Interpretation: normal rate (74), sinus rhythm, no ectopy, no ST changes, RBBB and NL axis Discharge Plan Discharge Clinical Impression: Atypical chest pain Patient Disposition: Home Condition: Stable Instructions: Chest Pain (ED) Additional Instructions: Continue home medication, follow-up with your primary doctor. Patient Language: [place] Prescriptions: No Action metformin 500 mg tablet 500 mg PO BID uofricdtcl-crhjugihi-lkojikbvr 20-5-12.5 mg tablet 1 tablet PO DAILY rosuvastatin 10 mg tablet 10 mg PO DAILY valacyclovir 1 gram tablet 1,000 mg PO PRN PRN (Reason: outbreak) ferrous sulfate 325 mg (65 mg iron) Tablet,Delayed Release (Dr/Ec) 325 mg PO DAILY 30 Days Qty: 30 0RF Follow-up/Referrals: PHYSICIAN NOT ON STAFF,NONSTAFF [Primary Care Provider] Time of Disposition: 21:43
== END 2025-01-09 22:19 | disposition home or self-care (01) ==
PROVIDERS: Emergency Provider Family Medicine
DX: R07.89 Other chest pain (principal); I10 Essential (primary) hypertension; E78.5 Hyperlipidemia, unspecified; E11.9 Type 2 diabetes mellitus without complications; Z79.84 Long term (current) use of oral hypoglycemic drugs; Z79.899 Other long term (current) drug therapy; I45.10 Unspecified right bundle-branch block
CPT/HCPCS: 36415; 71046; 80053; 83690; 84484; 85025; 85380; 85610; 85730; 93005; 99284; A9270